=== PATIENT | female | born 1950 | race Caucasian/White ===

== ENCOUNTER 2017-12-29 02:36 | Observation (INO) | payer MEDICARE, OTHER ==
[2017-12-29] MEDS ORDERED: BABY ASPIRIN 81 MG CHEW ONE (03:17)
[2017-12-29] MEDS ORDERED: Sodium Chloride 0.9% 1000 ML 1,000 ML ONE (03:18)
[2017-12-29] MEDS ORDERED: MORPHINE SULFATE 4 MG INJ ONE (03:18)
[2017-12-29] MEDS ORDERED: NITRO-BID 2% UD PACKETS ONE (03:18)
[2017-12-29 03:39] LABS: BASOPHIL % 0.4 % (0.0-0.4); Basophil (Absolute #) 0.04 (0-0.4); Eosinophil % 2.8 % (0.00-5.0); Eosinophil (Absolute #) 0.27 (0-0.5); Granulocyte Absolute (ANC) 6.02 (1.4-6.9); Granulocytes % 63.5 % (36.0-66.0); Hematocrit 41.4 % (35-47); Hemoglobin 13.8 gm/dl (12.0-16.0); Lymphocytes % 26.3 % (24.0-44.0); Mean Corpuscular Hgb Concent. 33.3 g/dl (32-36); Mean Platelet Volume 11.6 fl (6-9.5); Monocyte (Absolute #) 0.66 (0.0-1.3); Platelet Count 264 K/mm3 (150-450); Red Blood Count 4.93 M/mm3 (4.1-5.4); Red Cell Distribution Width 14.5 % (11.5-14.0); White Blood Count 9.5 K/mm3 (4.0-10.5)
[2017-12-29 03:48] LABS: ALBUMIN 4.1 g/dL (3.5-5.0); ALKALINE PHOSPHATASE 166 U/L (38-126); ANION GAP 16.8 MEQ/L (5-15); BLOOD UREA NITROGEN 13 mg/dL (7-17); CHLORIDE 105 mmol/L (98-107); Calcium 9.7 mg/dL (8.4-10.2); Carbon Dioxide 25 mmol/L (22-30); Glucose 118 mg/dL (74-106); Potassium 3.9 mmol/L (3.5-5.1); SGOT/AST 20 U/L (14-36); SGPT/ALT 16 U/L (0-35); SODIUM 144 mmol/L (137-145); Total Protein 7.5 g/dL (6.3-8.2)
[2017-12-29 04:06] LABS: TROPONIN < 0.012 ng/mL (0.000-0.034)
[2017-12-29] MEDS ORDERED: TYLENOL 325 MG PO PRN ×2 (05:53→07:51)
[2017-12-29] MEDS ORDERED: MORPHINE SULFATE 2 MG INJ IV PRN (05:53)
[2017-12-29] MEDS ORDERED: MAALOX ES 30 ML UNIT DOSE PO PRN ×2 (05:53→08:02)
[2017-12-29] MEDS ORDERED: Senokot-S Tablet PO PRN ×2 (05:53→07:51)
[2017-12-29] MEDS ORDERED: MILK OF MAGNESIA 30 ML PO PRN ×2 (05:53→07:51)
[2017-12-29] MEDS ORDERED: Zofran 4 MG/2 ML VIAL IV PRN ×2 (05:53→07:51)
[2017-12-29] MEDS ORDERED: MORPHINE SULFATE 4 MG INJ IV PRN ×2 (07:51→08:15)
[2017-12-29] MEDS ORDERED: Ecotrin 325 MG PO SCH ×2 (10:00)
[2017-12-29] MEDS ORDERED: Lopressor 25MG Tab PO SCH ×2 (10:00)
--- NOTE | 2017-12-29 11:59 | ERPHSYRPT ---
- History of Present Illness Time Seen by Provider: 12/29/17 03:17 Historian: patient Exam Limitations: no limitations Patient Subjective Stated Complaint: CP starting around 0100 today. denies N/V but slight indigestion. pain in Left chest that goes into left back./ denies injury. denies SOB Triage Nursing Assessment: alert and oeriented and anxious. states CP starting at 0100 tonight. no SOB or diaphoresis. states pain radiated to left back. no N/V but sight indigestion. lungs clear + BS x 4 quads denies edema. denies cough/fever. Physician History: 67-year-old female without any significant past medical history except for hip replacement him to the emergency room with complaining of left-sided chest pain for last 2 hours duration. Patient denies any diaphoresis, nausea, vomiting, shortness of breath. Patient states that she has a white coat hypertension, so her blood pressure usually goes up when she visit to Dr. Patient denies any other symptoms. Timing/Duration: today Activities at Onset: none Quality: aching Location: other (left side chest) Chest Pain Radiation: no radiation Severity of Pain-Max: mild Severity of Pain-Current: mild Modifying Factors: Improves With: nothing Associated Symptoms: heartburn Prior Chest Pain/Cardiac Workup: no prior chest pain Aspirin Treatment Today: 81 mg x 1 Allergies/Adverse Reactions: warfarin sodium [From Coumadin] Allergy (Intermediate, Verified 12/29/17 02:55) n&v amoxicillin trihydrate [From Augmentin] Allergy (Verified 12/29/17 02:55) ciprofloxacin [From Cipro] Allergy (Verified 12/29/17 02:55) ciprofloxacin HCl [From Cipro] Allergy (Verified 12/29/17 02:55) codeine Allergy (Verified 12/29/17 02:55) hydrocodone Allergy (Verified 12/29/17 02:55) potassium clavulanate [From Augmentin] Allergy (Verified 12/29/17 02:55) Sulfa (Sulfonamide Antibiotics) Allergy (Verified 12/29/17 02:55) sulfamethoxazole [From Septra] Allergy (Verified 12/29/17 02:55) trimethoprim [From Septra] Allergy (Verified 12/29/17 02:55) Home Medications: Diphenhydramine HCl 25 mg [Benadryl 25 mg Capsule] 1 tab PO DAILY [History] Ibuprofen 200 mg [Motrin 200 mg] 200 mg PO UD PRN 11/25/15 [History] Hx Tetanus, Diphtheria Vaccination/Date Given: (unknown) Hx Influenza Vaccination/Date Given: No Hx Pneumococcal Vaccination/Date Given: No Immunizations Up to Date: Yes - Review of Systems Constitutional: No Fever, No Chills Eyes: No Symptoms Ears, Nose, & Throat: No Symptoms Respiratory: No Cough, No Dyspnea Cardiac: No Chest Pain, No Edema, No Syncope Abdominal/Gastrointestinal: No Abdominal Pain, No Nausea, No Vomiting, No Diarrhea Genitourinary Symptoms: No Dysuria Musculoskeletal: No Back Pain, No Neck Pain Skin: No Rash Neurological: No Dizziness, No Focal Weakness, No Sensory Changes Psychological: No Symptoms Endocrine: No Symptoms All Other Systems: Reviewed and Negative - Past Medical History Pertinent Past Medical History: Yes Neurological History: No Pertinent History ENT History: No Pertinent History Cardiac History: No Pertinent History Respiratory History: Bronchitis Endocrine Medical History: No Pertinent History Musculoskeletal History: Arthritis GI Medical History: Diverticulosis, Other History: No Pertinent History Psycho-Social History: No Pertinent History Female Reproductive Disorders: No Pertinent History - Past Surgical History Past Surgical History: Yes Neuro Surgical History: No Pertinent History Cardiac: No Pertinent History Respiratory: No Pertinent History Gastrointestinal: Colon Resection Genitourinary: No Pertinent History Musculoskeletal: Joint Replacement Female Surgical History: Hysterectomy Other Surgical History: bilateral hip replacement 2008, 2011 - Social History Smoking Status: Current every day smoker How long have you smoked: 45 Exposure to second hand smoke: Yes Drug Use: none Patient Lives Alone: No - Female History Hx Now: No - Nursing Vital Signs Nursing Vital Signs: Initial Vital Signs Temperature 98.7 F 12/29/17 02:45 Pulse Rate 97 H 12/29/17 02:45 Blood Pressure 223/106 12/29/17 02:45 O2 Sat by Pulse Oximetry 98 12/29/17 02:45 Pain Scale Pain Intensity 1 - Physical Exam General Appearance: no apparent distress, alert Eye Exam: PERRL/EOMI, eyes nml inspection Ears, Nose, Throat Exam: normal ENT inspection, moist mucous membranes Neck Exam: normal inspection, non-tender, supple, full range of motion Respiratory Exam: normal breath sounds, lungs clear, No respiratory distress Cardiovascular Exam: regular rate/rhythm, normal heart sounds Gastrointestinal/Abdomen Exam: soft, No tenderness, No mass Back Exam: normal inspection, No CVA tenderness, No vertebral tenderness Extremity Exam: normal inspection, normal range of motion Neurologic Exam: alert, oriented x 3, cooperative, normal mood/affect, sensation nml, No motor deficits Skin Exam: normal color, warm, dry SpO2: 98 Oxygen Delivery: Room Air - Course Nursing assessment & vital signs reviewed: Yes EKG Interpreted by Me: Sinus Rhythm, NORMAL ST-T - Radiology Exams Chest X-ray Interpretation: Reviewed by me, Negative Ordered Tests: Active Orders 24 hr Category Date Time Status EKG-ER Only STAT Care 12/29/17 03:05 Ordered Oxygen-ED Only NASAL CANNULA 2 lpm Care 12/29/17 03:03 Ordered CHEST 1 VIEW (PORTABLE) Stat Exams 12/29/17 03:04 Ordered CBC W DIFF Stat Lab 12/29/17 03:03 Ordered CBC W DIFF Stat Lab 12/29/17 03:35 Completed CMP Stat Lab 12/29/17 03:03 Ordered CMP Stat Lab 12/29/17 03:35 Completed TROPONIN Q3H Lab 12/29/17 03:15 Ordered TROPONIN Q3H Lab 12/29/17 06:15 Ordered TROPONIN Q3H Lab 12/29/17 09:15 Ordered TROPONIN Q3H Lab 12/29/17 12:15 Ordered TROPONIN Q3H Lab 12/29/17 15:15 Ordered TROPONIN Stat Lab 12/29/17 03:35 Completed Medication Summary Discontinued Medications Generic Name Dose Route Start Last Admin Trade Name Elieq PRN Reason Stop Dose Admin Aspirin Confirm 12/29/17 03:17 Baby Aspirin 81 Mg Chew Administered 12/29/17 03:18 Dose 81 mg .ROUTE .STK-MED ONE Sodium Chloride Confirm 12/29/17 03:18 Sodium Chloride 0.9% 1000 Ml Administered 12/29/17 03:19 Dose 1,000 mls @ ud .ROUTE .STK-MED ONE Morphine Sulfate Confirm 12/29/17 03:18 Morphine Sulfate 4 Mg Inj Administered 12/29/17 03:19 Dose 4 mg .ROUTE .STK-MED ONE Nitroglycerin Confirm 12/29/17 03:18 Nitro-Bid 2% Ud Packets Administered 12/29/17 03:19 Dose 1 gm .ROUTE .STK-MED ONE Lab/Rad Data: Laboratory Result Diagrams 12/29/17 03:35 12/29/17 03:35 Laboratory Results 12/29/17 12/29/17 Range/Units 03:35 03:35 WBC 9.5 (4.0-10.5) K/mm3 RBC 4.93 (4.1-5.4) M/mm3 Hgb 13.8 (12.0-16.0) gm/dl Hct 41.4 (35-47) % MCV 84.0 (78-100) fl MCH 28.0 (26-32) pg MCHC 33.3 (32-36) g/dl RDW 14.5 H (11.5-14.0) % Plt Count 264 (150-450) K/mm3 MPV 11.6 H (6-9.5) fl Gran % 63.5 (36.0-66.0) % Eos # (Auto) 0.27 (0-0.5) Absolute Lymphs (auto) 2.50 (1.0-4.6) Absolute Monos (auto) 0.66 (0.0-1.3) Lymphocytes % 26.3 (24.0-44.0) % Monocytes % 7.0 (0.0-12.0) % Eosinophils % 2.8 (0.00-5.0) % Basophils % 0.4 (0.0-0.4) % Absolute Granulocytes 6.02 (1.4-6.9) Basophils # 0.04 (0-0.4) Sodium 144 (137-145) mmol/L Potassium 3.9 (3.5-5.1) mmol/L Chloride 105 (98-107) mmol/L Carbon Dioxide 25 (22-30) mmol/L Anion Gap 16.8 H (5-15) MEQ/L BUN 13 (7-17) mg/dL Creatinine 0.80 (0.52-1.04) mg/dL Estimated GFR > 60.0 ML/MIN Glucose 118 H (74-106) mg/dL Calcium 9.7 (8.4-10.2) mg/dL Total Bilirubin 0.40 (0.2-1.3) mg/dL AST 20 (14-36) U/L ALT 16 (0-35) U/L Alkaline Phosphatase 166 H (38-126) U/L Troponin I < 0.012 (0.000-0.034) ng/mL Serum Total Protein 7.5 (6.3-8.2) g/dL Albumin 4.1 (3.5-5.0) g/dL - Progress Progress: improved Air Movement: good Blood Culture(s) Obtained: No Antibiotics given: No Discussed with : Genny Villalba Will see patient in: hospital (observation) Counseled pt/family regarding: lab results, diagnosis, need for follow-up, rad results - Departure Time of Disposition: 04:37 Departure Disposition: Observation Clinical Impression: Chest pain, rule out acute myocardial infarction, Elevated blood pressure reading Condition: Fair Critical Care Time: Yes Critical Care Time(excluding separately billable procedures): 30-74 minutes Referrals: MIGUELITO WOOD [ACTIVE STAFF] -
--- NOTE | 2017-12-29 19:15 | PCM.SSS ---
History of Present Illness - Chief Complaint Chief Complaint: chest pain R/O ND History of Present Illness: 67-year-old female without any significant past medical history except for hip replacement him to the emergency room with complaining of left-sided chest pain for last 2 hours duration. Patient denies any diaphoresis, nausea, vomiting, shortness of breath. Patient states that she has a white coat hypertension, so her blood pressure usually goes up when she visit to Dr. Patient denies any other symptoms. - Review of Systems Constitutional: No Fever, No Chills Eyes: No Symptoms Ears, Nose, & Throat: No Symptoms Respiratory: No Cough, No Short Of Breath Cardiac: No Chest Pain, No Edema, No Syncope Abdominal/Gastrointestinal: No Abdominal Pain, No Nausea, No Vomiting, No Diarrhea Genitourinary Symptoms: No Dysuria Musculoskeletal: No Back Pain, No Neck Pain Skin: No Rash Neurological: No Dizziness, No Focal Weakness, No Sensory Changes Psychological: No Symptoms Endocrine: No Symptoms Hematologic/Lymphatic: No Symptoms Immunological/Allergic: No Symptoms Medications & Allergies Home Medications: Home Medication List Diphenhydramine HCl 25 mg [Benadryl 25 mg Capsule] 1 tab PO BID 11/25/15 [ History Confirmed 12/29/17] Ibuprofen 200 mg [Motrin 200 mg] 200 mg PO BID 11/25/15 [History Confirmed 12/29/17] Aspirin EC 325 mg [Ecotrin 325 MG] 81 mg PO DAILY 30 Days tablet.ec 12/29 [Rx] Metoprolol Tartrate 25 mg [Lopressor 25MG Tab] 25 mg PO DAILY 30 Days #30 tab 12/29/17 [Rx] Allergies/Adverse Reactions: Allergies Allergy/AdvReac Type Severity Reaction Status Date / Time warfarin sodium Allergy Intermediate n&v Verified 12/29/17 02:55 [From Coumadin] amoxicillin trihydrate Allergy Verified 12/29/17 02:55 [From Augmentin] ciprofloxacin [From Cipro] Allergy Verified 12/29/17 02:55 ciprofloxacin HCl Allergy Verified 12/29/17 02:55 [From Cipro] codeine Allergy Verified 12/29/17 02:55 hydrocodone Allergy Verified 12/29/17 02:55 potassium clavulanate Allergy Verified 12/29/17 02:55 [From Augmentin] Sulfa (Sulfonamide Allergy Verified 12/29/17 02:55 Antibiotics) sulfamethoxazole Allergy Verified 12/29/17 02:55 [From Septra] trimethoprim [From Septra] Allergy Verified 12/29/17 02:55 - Past Medical History Past Medical History: Yes Neurological History: No Pertinent History ENT History: No Pertinent History Cardiac History: No Pertinent History Respiratory History: Bronchitis Endocrine Medical History: No Pertinent History Musculoskelatal History: Arthritis GI Medical History: Diverticulosis, Other History: No Pertinent History Pyscho-Social History: No Pertinent History Reproductive Disorders: No Pertinent History - Female History Are you now?: No (N) - Past Surgical History Past Surgical History: Yes Neuro Surgical History: No Pertinent History Cardiac History: No Pertinent History Respiratory Surgery: No Pertinent History GI Surgical History: Colon Resection Genitourinary Surgical Hx: No Pertinent History Musculskeletal Surgical Hx: Joint Replacement Female Surgical History: Hysterectomy Other Surgical History: bilateral hip replacement 2008, 2011 - Social History Smoking Status: Current every day smoker How long have you smoked: 45 Exposure to second hand smoke: Yes Alcohol: None Drug Use: none - Physical Exam Vital Signs: Vital Signs - 24 hr Temp Pulse Pulse Resp BP Pulse Ox 12/29/17 16:00 98.1 F 76 18 118/59 97 12/29/17 13:00 93 L 12/29/17 12:00 98.1 F 76 18 88/53 93 L 12/29/17 09:53 93 L 12/29/17 06:28 98.1 F 80 18 169/85 97 12/29/17 05:30 84 18 142/88 94 L 12/29/17 04:38 98 12/29/17 03:51 86 18 168/96 98 12/29/17 03:31 91 H 18 178/109 98 12/29/17 02:45 98.7 F 97 H 97 H 223/106 98 General Appearance: no apparent distress, alert Neurologic Exam: alert, oriented x 3, cooperative, normal mood/affect, nml cerebellar function, nml station & gait, sensation nml, No motor deficits Eye Exam: PERRL/EOMI, eyes nml inspection Ears, Nose, Throat Exam: normal ENT inspection, TMs normal, pharynx normal, moist mucous membranes Neck Exam: normal inspection, non-tender, supple, full range of motion Respiratory Exam: normal breath sounds, lungs clear, No respiratory distress Cardiovascular Exam: regular rate/rhythm, normal heart sounds, normal peripheral pulses Gastrointestinal/Abdomen Exam: soft, normal bowel sounds, No tenderness, No mass Back Exam: normal inspection, normal range of motion, No CVA tenderness, No vertebral tenderness Extremity Exam: normal inspection, normal range of motion, pelvis stable Skin Exam: normal color, warm, dry, No rash Lymphatic Exam: No adenopathy Results - Labs Lab/Micro Results: Lab Results-Last 24 Hours 12/29/17 12/29/17 12/29/17 Range/Units 06:30 09:30 12:30 Troponin I < 0.012 < 0.012 < 0.012 (0.000-0.034) ng/mL 12/29/17 Range/Units 15:35 Troponin I < 0.012 (0.000-0.034) ng/mL - Radiology Impressions Radiology Exams & Impressions: Radiology Procedures Category Date Time Status CHEST 1 VIEW (PORTABLE) Routine Exams 12/29/17 12:53 Taken - Other Procedures and Tests Respiratory Therapy 12/29/17 10:55 EKG ROUTINE Assessment/Plan (1) Chest pain, rule out acute myocardial infarction Current Visit: Yes Status: Acute Assessment & Plan: Troponins negative, ND ruled out. will discharge her home with outpatient cardiac work up Chief Complaint Diagnosis chest pain R/O ND Allergies Allergy/AdvReac Type Severity Reaction Status Date / Time warfarin sodium Allergy Intermediate n&v Verified 12/29/17 02:55 [From Coumadin] amoxicillin trihydrate Allergy Verified 12/29/17 02:55 [From Augmentin] ciprofloxacin [From Cipro] Allergy Verified 12/29/17 02:55 ciprofloxacin HCl Allergy Verified 12/29/17 02:55 [From Cipro] codeine Allergy Verified 12/29/17 02:55 hydrocodone Allergy Verified 12/29/17 02:55 potassium clavulanate Allergy Verified 12/29/17 02:55 [From Augmentin] Sulfa (Sulfonamide Allergy Verified 12/29/17 02:55 Antibiotics) sulfamethoxazole Allergy Verified 12/29/17 02:55 [From Septra] trimethoprim [From Septra] Allergy Verified 12/29/17 02:55 Vital Signs (Last 24 hours) Temp Pulse Pulse Resp BP Pulse Ox 12/29/17 16:00 98.1 F 76 18 118/59 97 12/29/17 13:00 93 L 12/29/17 12:00 98.1 F 76 18 88/53 93 L 12/29/17 09:53 93 L 12/29/17 06:28 98.1 F 80 18 169/85 97 12/29/17 05:30 84 18 142/88 94 L 12/29/17 04:38 98 12/29/17 03:51 86 18 168/96 98 12/29/17 03:31 91 H 18 178/109 98 12/29/17 02:45 98.7 F 97 H 97 H 223/106 98 Current Medications Generic Name Dose Route Start Last Admin Trade Name Freq PRN Reason Stop Dose Admin Acetaminophen 0 mg 12/29/17 07:51 Tylenol 325 Mg PO 01/28/18 07:50 Q4H/PRN PRN TEMP >101 OR MILD PAIN Al Hydrox/Mg Hydrox/Simethicone 30 ml 12/29/17 08:02 Maalox Es 30 Ml Unit Dose PO 01/28/18 08:01 PRN PRN INDIGESTION Aspirin 325 mg 12/29/17 10:00 12/29/17 09:40 Ecotrin 325 Mg PO 01/28/18 09:59 325 mg DAILY ALEXIA Administration Magnesium Hydroxide 0 ml 12/29/17 07:51 Milk Of Magnesia 30 Ml PO 01/28/18 07:50 PRN PRN CONSTIPATION Metoprolol Tartrate 25 mg 12/29/17 10:00 12/29/17 09:40 Lopressor 25mg Tab PO 01/28/18 09:59 25 mg BID ALEXIA Administration Morphine Sulfate 2 mg 12/29/17 08:15 Morphine Sulfate 4 Mg Inj IV 01/03/18 07:50 UD PRN PAIN Ondansetron HCl 4 mg 12/29/17 07:51 Zofran 4 Mg/2 Ml Vial IV 01/28/18 07:50 Q4H PRN PRN NAUSEA/VOMITING Senna/Docusate Sodium 2 udtab 12/29/17 07:51 Senokot-S Tablet PO 01/28/18 07:50 BID PRN PRN Discontinued Medications Generic Name Dose Route Start Last Admin Trade Name Freq PRN Reason Stop Dose Admin Acetaminophen 650 mg 12/29/17 05:53 Tylenol 325 Mg PO 01/28/18 05:52 Q4H PRN PRN PAIN AND/OR FEVER Al Hydrox/Mg Hydrox/Simethicone 30 ml 12/29/17 05:53 Maalox Es 30 Ml Unit Dose PO 01/28/18 05:52 Q4H PRN PRN INDIGESTION Aspirin Confirm 12/29/17 03:17 Baby Aspirin 81 Mg Chew Administered 12/29/17 03:18 Dose 81 mg .ROUTE .STK-MED ONE Aspirin 325 mg 12/29/17 10:00 12/29/17 12:41 Ecotrin 325 Mg PO 01/28/18 09:59 Not Given DAILY [facility] Sodium Chloride Confirm 12/29/17 03:18 Sodium Chloride 0.9% 1000 Ml Administered 12/29/17 03:19 Dose 1,000 mls @ ud .ROUTE .STK-MED ONE Magnesium Hydroxide 30 - 60 ml 12/29/17 05:53 Milk Of Magnesia 30 Ml PO 01/28/18 05:52 QDP PRN CONSTIPATION Metoprolol Tartrate 25 mg 12/29/17 10:00 12/29/17 12:41 Lopressor 25mg Tab PO 01/28/18 09:59 Not Given BID [facility] Morphine Sulfate Confirm 12/29/17 03:18 Morphine Sulfate 4 Mg Inj Administered 12/29/17 03:19 Dose 4 mg .ROUTE .STK-MED ONE Morphine Sulfate 0 mg 12/29/17 07:51 Morphine Sulfate 4 Mg Inj IV 01/03/18 07:50 UD PRN PAIN Morphine Sulfate 2 mg 12/29/17 05:53 Morphine Sulfate 2 Mg Inj IV 01/03/18 05:52 .Q15MIN PRN PRN CHEST PAIN Nitroglycerin Confirm 12/29/17 03:18 Nitro-Bid 2% Ud Packets Administered 12/29/17 03:19 Dose 1 gm .ROUTE .STK-MED ONE Ondansetron HCl 4 mg 12/29/17 05:53 Zofran 4 Mg/2 Ml Vial IV 01/28/18 05:52 Q4H PRN PRN NAUSEA/VOMITING Senna/Docusate Sodium 2 udtab 12/29/17 05:53 Senokot-S Tablet PO 01/28/18 05:52 BID PRN PRN CONSTIPATION Intake & Output (Last 24 hours) 12/27/17 12/28/17 12/29/17 12/30/17 11:59 11:59 11:59 11:59 Intake Total 480 820 Balance 480 820 Weight 85 kg Laboratory Results (Last 24 hours) 12/29/17 12/29/17 12/29/17 15:35 12:30 09:30 WBC RBC Hgb Hct MCV MCH MCHC RDW Plt Count MPV Gran % Eos # (Auto) Absolute Lymphs (auto) Absolute Monos (auto) Lymphocytes % Monocytes % Eosinophils % Basophils % Absolute Granulocytes Basophils # Sodium Potassium Chloride Carbon Dioxide Anion Gap BUN Creatinine Estimated GFR Glucose Calcium Total Bilirubin AST ALT Alkaline Phosphatase Troponin I < 0.012 < 0.012 < 0.012 Serum Total Protein Albumin 12/29/17 12/29/17 12/29/17 06:30 03:35 03:35 WBC 9.5 RBC 4.93 Hgb 13.8 Hct 41.4 MCV 84.0 MCH 28.0 MCHC 33.3 RDW 14.5 H Plt Count 264 MPV 11.6 H Gran % 63.5 Eos # (Auto) 0.27 Absolute Lymphs (auto) 2.50 Absolute Monos (auto) 0.66 Lymphocytes % 26.3 Monocytes % 7.0 Eosinophils % 2.8 Basophils % 0.4 Absolute Granulocytes 6.02 Basophils # 0.04 Sodium 144 Potassium 3.9 Chloride 105 Carbon Dioxide 25 Anion Gap 16.8 H BUN 13 Creatinine 0.80 Estimated GFR > 60.0 Glucose 118 H Calcium 9.7 Total Bilirubin 0.40 AST 20 ALT 16 Alkaline Phosphatase 166 H Troponin I < 0.012 < 0.012 Serum Total Protein 7.5 Albumin 4.1 Orders (Last 24 hours) Category Date Time Status Bedrest with BRP/BSC ROUTINE Activity 12/29/17 05:53 Active Code Status Order ROUTINE Care 12/29/17 05:53 Active IV Care Q6H Care 12/29/17 05:53 Active Implement Chest Pain Pathway ROUTINE Care 12/29/17 05:53 Active Moe Francois, Apply ROUTINE Care 12/29/17 05:53 Active Telemetry ROUTINE Care 12/29/17 05:53 Active Weight,Daily 0600 Care 12/29/17 05:53 Active Cardiac Diet Diet 12/29/17 Breakfast Active CHEST 1 VIEW (PORTABLE) Routine Exams 12/29/17 12:53 Taken CBC W DIFF Stat Lab 12/29/17 03:35 Completed CMP Stat Lab 12/29/17 03:35 Completed LIPID PROFILE AM.LAB Lab 12/30/17 04:00 Ordered TROPONIN Stat Lab 12/29/17 03:35 Completed TROPONIN Stat Lab 12/29/17 15:35 Completed TROPONIN Urgent Lab 12/29/17 06:30 Completed TROPONIN Urgent Lab 12/29/17 09:30 Completed TROPONIN Urgent Lab 12/29/17 12:30 Completed Acetaminophen 325 mg [Tylenol 325 mg] Med 12/29/17 07:51 Active 0 mg PO Q4H/PRN PRN Acetaminophen 325 mg [Tylenol 325 mg] Med 12/29/17 05:53 Discontinued 650 mg PO Q4H PRN PRN Aspirin 81 gm Chew [Baby Aspirin 81 mg Chew] Med 12/29/17 03:17 Discontinued 81 mg .ROUTE .STK-MED ONE Aspirin EC 325 mg [Ecotrin 325 MG] Med 12/29/17 10:00 Active 325 mg PO DAILY Aspirin EC 325 mg [Ecotrin 325 MG] Med 12/29/17 10:00 Discontinued 325 mg PO DAILY Mag Hydrox/Al Hydrox/Simeth [Maalox Es 30 ml Unit Med 12/29/17 08:02 Active Dose] 30 ml PO PRN PRN Mag Hydrox/Al Hydrox/Simeth [Maalox Es 30 ml Unit Med 12/29/17 05:53 Discontinued Dose] 30 ml PO Q4H PRN PRN Magnesium Hydroxide 30 ml [Milk of Magnesia 30 ml Med 12/29/17 07:51 Active ] 0 ml PO PRN PRN Magnesium Hydroxide 30 ml [Milk of Magnesia 30 ml Med 12/29/17 05:53 Discontinued ] 30 - 60 ml PO QDP PRN Metoprolol Tartrate 25 mg [Lopressor 25MG Tab] Med 12/29/17 10:00 Active 25 mg PO BID Metoprolol Tartrate 25 mg [Lopressor 25MG Tab] Med 12/29/17 10:00 Discontinued 25 mg PO BID Morphine Sulfate 2 mg Inj Med 12/29/17 05:53 Discontinued 2 mg IV .Q15MIN PRN PRN Morphine Sulfate 4 mg Inj Med 12/29/17 07:51 Discontinued 0 mg IV UD PRN Morphine Sulfate 4 mg Inj Med 12/29/17 08:15 Active 2 mg IV UD PRN Morphine Sulfate 4 mg Inj Med 12/29/17 03:18 Discontinued 4 mg .ROUTE .STK-MED ONE NaCl 0.9% 1000 ml [Sodium Chloride 0.9% 1000 ML] 1,000 Med 12/29/17 03:18 Discontinued ml .ROUTE UD Nitroglycerin 2 %Ointment [Nitro-Bid 2% Ud Packets Med 12/29/17 03:18 Discontinued *] 1 gm .ROUTE .STK-MED ONE Ondansetron HCl 4 mg/2 ml [Zofran 4 MG/2 ML VIAL] Med 12/29/17 05:53 Discontinued 4 mg IV Q4H PRN PRN Ondansetron HCl 4 mg/2 ml [Zofran 4 MG/2 ML VIAL] Med 12/29/17 07:51 Active 4 mg IV Q4H PRN PRN Senna/Docusate Sodium Tab [Senokot-S Tablet] Med 12/29/17 05:53 Discontinued 2 udtab PO BID PRN PRN Senna/Docusate Sodium Tab [Senokot-S Tablet] Med 12/29/17 07:51 Active 2 udtab PO BID PRN PRN EKG ONCE RT 12/29/17 10:47 Completed EKG Q8HX2,QAMX3,PRN RT 12/29/17 05:53 Active EKG ROUTINE RT 12/29/17 10:55 Active Smoking Cessation Education ONCE RT 12/29/17 06:42 Completed Transfer Order Routine Transfer 12/29/17 Completed Code(s): R07.9 - CHEST PAIN, UNSPECIFIED (2) Elevated blood pressure reading Current Visit: Yes Status: Resolved Code(s): R03.0 - ELEVATED BLOOD- PRESSURE READING, W/O DIAGNOSIS OF HTN Hospital Summary - Hospital Course Hospital Course: Last Vital Signs Temp 98.1 F 12/29/17 16:00 Pulse 76 12/29/17 16:00 Resp 18 12/29/17 16:00 BP 118/59 12/29/17 16:00 Pulse Ox 97 12/29/17 16:00 Allergies warfarin sodium [From Coumadin] Allergy (Intermediate, Verified 12/29/17 02:55) n&v amoxicillin trihydrate [From Augmentin] Allergy (Verified 12/29/17 02:55) ciprofloxacin [From Cipro] Allergy (Verified 12/29/17 02:55) ciprofloxacin HCl [From Cipro] Allergy (Verified 12/29/17 02:55) codeine Allergy (Verified 12/29/17 02:55) hydrocodone Allergy (Verified 12/29/17 02:55) potassium clavulanate [From Augmentin] Allergy (Verified 12/29/17 02:55) Sulfa (Sulfonamide Antibiotics) Allergy (Verified 12/29/17 02:55) sulfamethoxazole [From Septra] Allergy (Verified 12/29/17 02:55) trimethoprim [From Septra] Allergy (Verified 12/29/17 02:55) Active Medications Acetaminophen (Tylenol 325 Mg) 0 mg PO Q4H/PRN PRN PRN Reason: TEMP >101 OR MILD PAIN Stop: 01/28/18 07:50 Al Hydrox/Mg Hydrox/Simethicone (Maalox Es 30 Ml Unit Dose) 30 ml PO PRN PRN PRN Reason: INDIGESTION Stop: 01/28/18 08:01 Aspirin (Ecotrin 325 Mg) 325 mg PO DAILY ALEXIA Stop: 01/28/18 09:59 Last Admin: 12/29/17 09:40 Dose: 325 mg Magnesium Hydroxide (Milk Of Magnesia 30 Ml) 0 ml PO PRN PRN PRN Reason: CONSTIPATION Stop: 01/28/18 07:50 Metoprolol Tartrate (Lopressor 25mg Tab) 25 mg PO BID ALEXIA Stop: 01/28/18 09:59 Last Admin: 12/29/17 09:40 Dose: 25 mg Morphine Sulfate (Morphine Sulfate 4 Mg Inj) 2 mg IV UD PRN PRN Reason: PAIN Stop: 01/03/18 07:50 Ondansetron HCl (Zofran 4 Mg/2 Ml Vial) 4 mg IV Q4H PRN PRN PRN Reason: NAUSEA/VOMITING Stop: 01/28/18 07:50 Senna/Docusate Sodium (Senokot-S Tablet) 2 udtab PO BID PRN PRN Stop: 01/28/18 07:50 Intake & Output 12/29/17 12/30/17 11:59 11:59 Intake Total 480 820 Balance 480 820 Weight 85 kg Orders 12/29/17 05:53 Bedrest with BRP/BSC ROUTINE Code Status Order ROUTINE IV Care Q6H Implement Chest Pain Pathway ROUTINE Moe Francois, Apply ROUTINE Telemetry ROUTINE Weight,Daily 0600 EKG Q8HX2,QAMX3,PRN 12/29/17 07:51 Acetaminophen 325 mg [Tylenol 325 mg] 0 mg PO Q4H/PRN PRN Magnesium Hydroxide 30 ml [Milk of Magnesia 30 ml] 0 ml PO PRN PRN Ondansetron HCl 4 mg/2 ml [Zofran 4 MG/2 ML VIAL] 4 mg IV Q4H PRN PRN Senna/Docusate Sodium Tab [Senokot-S Tablet] 2 udtab PO BID PRN PRN 12/29/17 08:02 Mag Hydrox/Al Hydrox/Simeth [Maalox Es 30 ml Unit Dose] 30 ml PO PRN PRN 12/29/17 08:15 Morphine Sulfate 4 mg Inj 2 mg IV UD PRN 12/29/17 10:00 Aspirin EC 325 mg [Ecotrin 325 MG] 325 mg PO DAILY Metoprolol Tartrate 25 mg [Lopressor 25MG Tab] 25 mg PO BID 12/29/17 10:55 EKG ROUTINE 12/29/17 12:53 CHEST 1 VIEW (PORTABLE) Routine 12/29/17 Breakfast Cardiac Diet 12/30/17 04:00 LIPID PROFILE AM.LAB Lab Tests 12/29/17 12/29/17 12/29/17 03:35 03:35 06:30 WBC 9.5 RBC 4.93 Hgb 13.8 Hct 41.4 MCV 84.0 MCH 28.0 MCHC 33.3 RDW 14.5 H Plt Count 264 MPV 11.6 H Gran % 63.5 Eos # (Auto) 0.27 Absolute Lymphs (auto) 2.50 Absolute Monos (auto) 0.66 Lymphocytes % 26.3 Monocytes % 7.0 Eosinophils % 2.8 Basophils % 0.4 Absolute Granulocytes 6.02 Basophils # 0.04 Sodium 144 Potassium 3.9 Chloride 105 Carbon Dioxide 25 Anion Gap 16.8 H BUN 13 Creatinine 0.80 Estimated GFR > 60.0 Glucose 118 H Calcium 9.7 Total Bilirubin 0.40 AST 20 ALT 16 Alkaline Phosphatase 166 H Troponin I < 0.012 < 0.012 Serum Total Protein 7.5 Albumin 4.1 12/29/17 12/29/17 12/29/17 09:30 12:30 15:35 WBC RBC Hgb Hct MCV MCH MCHC RDW Plt Count MPV Gran % Eos # (Auto) Absolute Lymphs (auto) Absolute Monos (auto) Lymphocytes % Monocytes % Eosinophils % Basophils % Absolute Granulocytes Basophils # Sodium Potassium Chloride Carbon Dioxide Anion Gap BUN Creatinine Estimated GFR Glucose Calcium Total Bilirubin AST ALT Alkaline Phosphatase Troponin I < 0.012 < 0.012 < 0.012 Serum Total Protein Albumin - Vitals & Intake/Output Vital Signs: Vital Signs Temperature 98.1 F 12/29/17 16:00 Pulse Rate 76 12/29/17 16:00 Respiratory Rate 18 12/29/17 16:00 Blood Pressure 118/59 12/29/17 16:00 O2 Sat by Pulse Oximetry 97 12/29/17 16:00 Intake & Output: Intake & Output 12/27/17 12/28/17 12/29/17 12/30/17 11:59 11:59 11:59 11:59 Intake Total 480 820 Balance 480 820 Weight 85 kg - Lab Result Diagrams: 12/29/17 03:35 12/29/17 03:35 Lab Results-Last 24 Hrs: Lab Results-Last 24 Hours 12/29/17 12/29/17 12/29/17 Range/Units 06:30 09:30 12:30 Troponin I < 0.012 < 0.012 < 0.012 (0.000-0.034) ng/mL 12/29/17 Range/Units 15:35 Troponin I < 0.012 (0.000-0.034) ng/mL - Radiology Exams Ordered Rad Exams-Entire Visit: Radiology Procedures Category Date Time Status CHEST 1 VIEW (PORTABLE) Routine Exams 12/29/17 12:53 Taken - Procedures and Test Procedures and Tests throughout Hospitalization: Therapy Orders & Screens 12/29/17 06:42 Smoking Cessation Education ONCE Comment: Diagnosis: chest pain R/O ND Smoking Status: Current every day smoker How long have you smoked: 45 Have you smoked in the past 12 months: Yes Approximately how many cigarettes per day: 20 Do you dip or chew tobacco: No 12/29/17 10:47 EKG ONCE Comment: Diagnosis: chest pain R/O ND 12/29/17 10:55 EKG ROUTINE Comment: Diagnosis: chest pain R/O ND - Discharge Discharge Date: 12/29/17 Disposition: Home, Self-Care Condition: Stable Prescriptions: New Aspirin EC 325 mg [Ecotrin 325 MG] 81 mg PO DAILY 30 Days tablet.ec Metoprolol Tartrate 25 mg [Lopressor 25MG Tab] 25 mg PO DAILY 30 Days # 30 tab Continue Diphenhydramine HCl 25 mg [Benadryl 25 mg Capsule] 1 tab PO BID Ibuprofen 200 mg [Motrin 200 mg] 200 mg PO BID Follow up with: MIGUELITO WOOD [Primary Care Provider] - 5 Days
[2017-12-29 20:12] VITALS: BP 127/61; PULSE 79; O2SAT 96
--- NOTE | 2017-12-29 21:24 | XRAY ---
Indication: Chest pain. Comparison: None Portable chest demonstrates mild bibasilar infiltrate versus atelectasis. Remaining heart and lungs unremarkable. Bony thorax intact with mild osteopenia and degenerative changes. Comment: Preliminary interpretation was made by [facility]. No critical discrepancy.
== END 2017-12-29 20:10 | disposition home or self-care (01) ==
LOC: ED 02:36 → MED SURG 05:48
PROVIDERS: ADMIT General Practice; ATTEND General Practice
DX: R03.0 Elevated blood-pressure reading, without diagnosis of hypertension (principal)
CPT/HCPCS: 36415; 71045; 80053; 84484; 85025; 93005; 93268; 96365; 99284; 99285; J2270; A9270-GY; G0378

== ENCOUNTER 2018-02-02 13:25 | Emergency (ER) | payer MEDICARE, OTHER ==
[2018-02-02] MEDS ORDERED: solu-MEDROL 125 MG IV ONE (14:01)
[2018-02-02] MEDS ORDERED: solu-MEDROL 125 MG ONE (14:05)
--- NOTE | 2018-02-02 14:08 | ERPHSYRPT ---
- History of Present Illness Time Seen by Provider: 02/02/18 13:54 Source: patient Exam Limitations: no limitations Patient Subjective Stated Complaint: pt reports she has a history of allergic reactions-woke up with hives this morning-injection of benadryl-went home and took tessalon pearls-broke out in hives worse than the first time-reports feeling of sob isamar 30 min after breaking out in hives the second time Triage Nursing Assessment: pt pink warm and dry-increased work of breathing noted with no retractions noted-pt able to speak in complete sentences-hives noted to upper trunk-wheezes noted to left lung Physician History: 67-year-old white female arrives with complaint of hives, wheezing symptoms since around 10:00. According to patient she had had the hives and wheezing since last . She was seen in this morning at the outpatient clinic given the injection of Benadryl. She states she improved. She states that at 10:00 morning she took Tessalon Perles and had recurrence of her symptoms. She states she is on Biaxin, prednisone, Tessalon Perles Past medical history includes bronchitis, diverticulosis, arthritis Past surgical history includes hysterectomy, joint replacement, bilateral hip replacement Timing/Duration: other (hives and occasional wheezing since 2 days ago. Seen by outpatient clinic this am given Benadryl took Tessalon Perles at 10 :00 and rash recurred.) Associated Symptoms: cough, rash, other (wheezing), No nausea, No vomiting, No abdominal pain, No shortness of breath, No heartburn, No diaphoresis, No chest pain, No fever, No headaches, No loss of appetite, No malaise, No syncope, No seizure, No weakness Allergies/Adverse Reactions: warfarin sodium [From Coumadin] Allergy (Intermediate, Verified 02/02/18 13:37) n&v amoxicillin trihydrate [From Augmentin] Allergy (Verified 02/02/18 13:37) ciprofloxacin [From Cipro] Allergy (Verified 02/02/18 13:37) ciprofloxacin HCl [From Cipro] Allergy (Verified 02/02/18 13:37) codeine Allergy (Verified 02/02/18 13:37) hydrocodone Allergy (Verified 02/02/18 13:37) potassium clavulanate [From Augmentin] Allergy (Verified 02/02/18 13:37) Sulfa (Sulfonamide Antibiotics) Allergy (Verified 02/02/18 13:37) sulfamethoxazole [From Septra] Allergy (Verified 02/02/18 13:37) trimethoprim [From Septra] Allergy (Verified 02/02/18 13:37) Home Medications: Diphenhydramine HCl 25 mg [Benadryl 25 mg Capsule] 1 tab PO BID 11/25/15 [ History] Ibuprofen 200 mg [Motrin 200 mg] 200 mg PO BID 11/25/15 [History] Benzonatate [Tessalon Perle] 100 mg PO UD 02/02/18 [History] Clarithromycin 500 mg PO UD 02/02/18 [History] Prednisone 10 mg [Deltasone 10 mg] 10 mg PO UD 02/02/18 [History] Hx Tetanus, Diphtheria Vaccination/Date Given: Yes (2016) Hx Influenza Vaccination/Date Given: No Hx Pneumococcal Vaccination/Date Given: No Immunizations Up to Date: Yes - Review of Systems Constitutional: No Fever, No Chills Eyes: No Symptoms Ears, Nose, & Throat: No Symptoms Respiratory: Cough, Wheezing Cardiac: No Chest Pain, No Edema, No Syncope Abdominal/Gastrointestinal: No Abdominal Pain, No Nausea, No Vomiting, No Diarrhea Genitourinary Symptoms: No Dysuria Musculoskeletal: No Back Pain, No Neck Pain Skin: Rash Neurological: No Dizziness, No Focal Weakness, No Sensory Changes Psychological: No Symptoms Endocrine: No Symptoms All Other Systems: Reviewed and Negative - Past Medical History Pertinent Past Medical History: Yes Neurological History: No Pertinent History ENT History: No Pertinent History Cardiac History: No Pertinent History Respiratory History: Bronchitis Endocrine Medical History: No Pertinent History Musculoskeletal History: Arthritis GI Medical History: Diverticulosis, Other History: No Pertinent History Psycho-Social History: No Pertinent History Female Reproductive Disorders: No Pertinent History - Past Surgical History Past Surgical History: Yes Neuro Surgical History: No Pertinent History Cardiac: No Pertinent History Respiratory: No Pertinent History Gastrointestinal: Colon Resection Genitourinary: No Pertinent History Musculoskeletal: Joint Replacement Female Surgical History: Hysterectomy Other Surgical History: bilateral hip replacement 2008, 2011 - Social History Smoking Status: Current every day smoker How long have you smoked: yrs Exposure to second hand smoke: Yes Drug Use: none Patient Lives Alone: No - Female History Hx Now: No - Nursing Vital Signs Nursing Vital Signs: Initial Vital Signs Temperature 98.2 F 02/02/18 13:30 Pulse Rate 87 02/02/18 13:30 Respiratory Rate 18 02/02/18 13:30 Blood Pressure 116/73 02/02/18 13:30 O2 Sat by Pulse Oximetry 96 02/02/18 13:30 Pain Scale Pain Intensity 0 - Physical Exam General Appearance: mild distress Eye Exam: PERRL/EOMI, eyes nml inspection Ears, Nose, Throat Exam: normal ENT inspection, TMs normal, pharynx normal, moist mucous membranes Neck Exam: normal inspection, non-tender, supple, full range of motion Respiratory Exam: lungs clear, wheezing (occasional scattered wheeze), No respiratory distress Cardiovascular Exam: regular rate/rhythm, normal heart sounds, normal peripheral pulses Gastrointestinal/Abdomen Exam: soft, normal bowel sounds, No tenderness, No mass Back Exam: normal inspection, normal range of motion, No CVA tenderness, No vertebral tenderness Extremity Exam: normal inspection, normal range of motion, pelvis stable Neurologic Exam: alert, oriented x 3, cooperative, clinical trainer II-XII nml as tested, normal mood/affect, nml cerebellar function, nml station & gait, sensation nml, No motor deficits Skin Exam: other (Sparse urticarial rash) SpO2 Interpretation: normal (96%) SpO2: 96 Oxygen Delivery: Room Air - Course Nursing assessment & vital signs reviewed: Yes EKG Interpreted by Me: RATE (68 bpm), Sinus Rhythm, NORMAL AXIS, Other (EKG: Sinus rhythm, large amount of artifact, 68 beats per minute, no acute ST or T wave changes, normal axis) - Radiology Exams Chest X-ray Interpretation: Reviewed by me (no acute disease process) Ordered Tests: Active Orders 24 hr Category Date Time Status EKG-ER Only STAT Care 02/02/18 14:01 Active IV Insertion STAT Care 02/02/18 14:01 Active CHEST 1 VIEW (PORTABLE) Stat Exams 02/02/18 14:32 Taken Medication Summary Discontinued Medications Generic Name Dose Route Start Last Admin Trade Name Freq PRN Reason Stop Dose Admin Albuterol/Ipratropium 3 ml 02/02/18 14:31 02/02/18 15:22 Duoneb 0.5-3 Mg/3 Ml Neb IH 02/02/18 14:32 Not Given STAT ONE Albuterol/Ipratropium Confirm 02/02/18 15:14 Duoneb 0.5-3 Mg/3 Ml Neb Administered 02/02/18 15:15 Dose 3 ml IH .STK-MED ONE Methylprednisolone Sodium Succinate 125 mg 02/02/18 14:01 02/02/18 14:18 Solu-Medrol 125 Mg IV 02/02/18 14:02 125 mg STAT ONE Administration Methylprednisolone Sodium Succinate Confirm 02/02/18 14:05 Solu-Medrol 125 Mg Administered 02/02/18 14:06 Dose 125 mg .ROUTE .STK-MED ONE - Progress Progress: improved Progress Note: 02/02/18 15:27 67-year-old white female arrives with complaint of hives wheezing after taking Tessalon Perles this morning. Patient had apparently developed a rash after Tessalon Perles albuterol Biaxin and prednisone 2 days ago. She was seen in the clinic today was given Benadryl injection. Patient states she got better. Then, when she got home she took a Tessalon Perles and she began to have hives again stated that she was wheezing. Patient states she took 2 Benadryl tablets at around 1:00. She was also given Solu-Medrol 125 mg IM here in the emergency room. She is feeling better. I had ordered a DuoNeb treatment for the patient however she states that she possibly had an allergy to the albuterol. On recheck she is clear on her lungs Will hold albuterol she appears to be improving after both her Benadryl and her injection of Solu-Medrol. If continued to improve Will plan to discharge patient have her continue her prednisone. She is to continue Benadryl 50 mg orally every 6 hours. She is to discontinue Tessalon Perles hold Biaxin until she discusses this with her family doctor.. Patient states that she apparently had chest pain in the past which she had a normal workup here in the emergency room however she was supposed to see a organ teacher so epinephrine at this time was not given patient is improving anyway. - Departure Time of Disposition: 15:56 Departure Disposition: Home Clinical Impression: Allergic reaction caused by a drug Qualifiers: Encounter type: initial encounter Qualified Code(s): T78.40XA - Allergy, unspecified, initial encounter Condition: Fair Critical Care Time: No Referrals: JERAMIE GRECO [Primary Care Provider] - Additional Instructions: Return home. Do not take anymore Tessalon Perles. Prednisone taper as prescribed by your family doctor. Benadryl 50 mg orally every 6 hours as needed. Plenty of fluids. Follow-up with your family doctor. Return for acute distress or for severe symptoms. Contact your family doctor before taking any Biaxin.
[2018-02-02] MEDS ORDERED: DUONEB 0.5-3 MG/3 ml Neb IH ONE ×2 (14:31→15:14)
[2018-02-02 16:09] VITALS: BP 142/73; PULSE 65; O2SAT 95
--- NOTE | 2018-02-02 21:03 | XRAY ---
Indication: Cough. Comparison: December 29, 2017. Portable chest demonstrates new right mid lung linear opacity, possible subsegmental atelectasis. Infiltrate not completely excluded in the right clinical setting. Remaining heart and lungs unremarkable.
== END 2018-02-02 16:08 | disposition home or self-care (01) ==
LOC: ED 13:25
DX: L50.9 Urticaria, unspecified (principal); R06.2 Wheezing; T48.3X5A Adverse effect of antitussives, initial encounter; Z79.899 Other long term (current) drug therapy
CPT/HCPCS: 36000; 71045; 93005; 96374; 99284; J2930; A9270-GY

== ENCOUNTER 2018-02-08 11:53 | Emergency (ER) | payer MEDICARE, OTHER ==
[2018-02-08 12:26] LABS: Hematocrit 38.6 % (35-47); Hemoglobin 12.9 gm/dl (12.0-16.0); Mean Cell Volume 84.8 fl (78-100); Mean Corpuscular Hemoglobin 28.4 pg (26-32); Mean Corpuscular Hgb Concent. 33.4 g/dl (32-36); Platelet Count 246 K/mm3 (150-450); Red Blood Count 4.55 M/mm3 (4.1-5.4)
--- NOTE | 2018-02-08 12:30 | ERPHSYRPT ---
- History of Present Illness Time Seen by Provider: 02/08/18 12:08 Source: patient Exam Limitations: no limitations Patient Subjective Stated Complaint: pt reports she has had productive cough and bronchitis that is being treated-states she continues to cough-began having left sided chest pain-denies diaphorisis-denies n/v/d Triage Nursing Assessment: pt pale warm and dry-anxious with labored breathing but able to talk in complete sentences with no increased work of breathing- slight wheezes noted throughout-right radial pulse regualr and strong Physician History: This is a 67-year-old white female with history of bronchitis, but diverticulosis, arthritis, Patient arrives with a complaint of a cough which has been going on for over a week she had initially been seen by her family doctor had been given an albuterol treatment placed on prednisone and Biaxin and Tussionex. Patient apparently didn't apparently then developed a rash. Which resolved after taking Benadryl several days ago. After this she had taken Tussionex again and developed a rash again. And presented to the emergency room on February 02, 2018. Patient was given Solu-Medrol IV she had already taken Benadryl an hour or 2 prior to arrival patient improved patient was discharged., And she states she followed up with his her family doctor who increased her prednisone dose. Patient states she believes that she cannot take albuterol she feels like this was part of her rash. She is here now complaining of a continued cough and she states that she has pain in her left anterior chest with coughing. She had been told in the past not to take Tussionex. Because of rash which had developed. Patient states she contacted her family doctor and he recommended that she present to the emergency room for further evaluation, Past medical history includes bronchitis, diverticulosis, arthritis Past surgical history includes joint replacement, hysterectomy, bilateral hip replacement Timing/Duration: week(s) (symptoms for approximately one week) Severity: moderate Modifying Factors: Improves With: other (Pain left anterior chest with coughing) Associated Symptoms: cough, chest pain (Pain left anterior chest with coughing) , No nausea, No vomiting, No abdominal pain, No shortness of breath, No heartburn, No diaphoresis, No chills, No fever, No headaches, No loss of appetite, No rash, No syncope, No seizure, No weakness Allergies/Adverse Reactions: albuterol Allergy (Intermediate, Verified 02/08/18 12:05) Hives warfarin sodium [From Coumadin] Allergy (Intermediate, Verified 02/02/18 13:37) n&v amoxicillin trihydrate [From Augmentin] Allergy (Verified 02/02/18 13:37) ciprofloxacin [From Cipro] Allergy (Verified 02/02/18 13:37) ciprofloxacin HCl [From Cipro] Allergy (Verified 02/02/18 13:37) codeine Allergy (Verified 02/02/18 13:37) hydrocodone Allergy (Verified 02/02/18 13:37) potassium clavulanate [From Augmentin] Allergy (Verified 02/02/18 13:37) Sulfa (Sulfonamide Antibiotics) Allergy (Verified 02/02/18 13:37) sulfamethoxazole [From Septra] Allergy (Verified 02/02/18 13:37) trimethoprim [From Septra] Allergy (Verified 02/02/18 13:37) Home Medications: Diphenhydramine HCl 25 mg [Benadryl 25 mg Capsule] 1 tab PO BID 11/25/15 [ History] Ibuprofen 200 mg [Motrin 200 mg] 200 mg PO BID 11/25/15 [History] Clarithromycin 500 mg PO UD 02/02/18 [History] Prednisone 10 mg [Deltasone 10 mg] 20 mg PO UD 02/02/18 [History] Hx Tetanus, Diphtheria Vaccination/Date Given: Yes (2016) Hx Influenza Vaccination/Date Given: No Hx Pneumococcal Vaccination/Date Given: No Immunizations Up to Date: Yes - Review of Systems Constitutional: No Fever, No Chills Eyes: No Symptoms Ears, Nose, & Throat: No Symptoms Respiratory: Cough, No Cyanosis, No Dyspnea, No Dyspnea on Exertion ([place]), No Stridor, No Wheezing Cardiac: Chest Pain (pain left anterior chest with coughing) Abdominal/Gastrointestinal: No Abdominal Pain, No Nausea, No Vomiting, No Diarrhea Genitourinary Symptoms: No Dysuria Musculoskeletal: No Back Pain, No Neck Pain Skin: No Rash Neurological: No Dizziness, No Focal Weakness, No Sensory Changes Psychological: No Symptoms Endocrine: No Symptoms All Other Systems: Reviewed and Negative - Past Medical History Pertinent Past Medical History: Yes Neurological History: No Pertinent History ENT History: No Pertinent History Cardiac History: No Pertinent History Respiratory History: Bronchitis Endocrine Medical History: No Pertinent History Musculoskeletal History: Arthritis GI Medical History: Diverticulosis, Other History: No Pertinent History Psycho-Social History: No Pertinent History Female Reproductive Disorders: No Pertinent History - Past Surgical History Past Surgical History: Yes Neuro Surgical History: No Pertinent History Cardiac: No Pertinent History Respiratory: No Pertinent History Gastrointestinal: Colon Resection Genitourinary: No Pertinent History Musculoskeletal: Joint Replacement Female Surgical History: Hysterectomy Other Surgical History: bilateral hip replacement 2008, 2011 - Social History Smoking Status: Current every day smoker How long have you smoked: yrs Exposure to second hand smoke: Yes Drug Use: none Patient Lives Alone: No - Female History Hx Now: No - Nursing Vital Signs Nursing Vital Signs: Initial Vital Signs Temperature 97.8 F 02/08/18 11:55 Pulse Rate 80 02/08/18 11:55 Respiratory Rate 20 02/08/18 11:55 Blood Pressure 174/89 02/08/18 11:55 O2 Sat by Pulse Oximetry 98 02/08/18 11:55 Pain Scale Pain Intensity 0 - Physical Exam General Appearance: other (well-developed well-nourished white female frequent cough, increases when I enter the room tearful) Eye Exam: PERRL/EOMI, eyes nml inspection Ears, Nose, Throat Exam: normal ENT inspection, TMs normal, pharynx normal, moist mucous membranes Neck Exam: normal inspection, non-tender, supple, full range of motion Respiratory Exam: normal breath sounds, lungs clear, other (pain in left anterior chest with deep breathing), No respiratory distress Cardiovascular Exam: regular rate/rhythm, normal heart sounds, normal peripheral pulses Gastrointestinal/Abdomen Exam: soft, normal bowel sounds, No tenderness, No mass Back Exam: normal inspection, normal range of motion, No CVA tenderness, No vertebral tenderness Extremity Exam: normal inspection, normal range of motion, pelvis stable Neurologic Exam: alert, oriented x 3, cooperative, conflict resolution professional II-XII nml as tested, normal mood/affect, nml cerebellar function, nml station & gait, sensation nml, No motor deficits Skin Exam: normal color, warm, dry, No rash Lymphatic Exam: adenopathy SpO2 Interpretation: normal (98%) SpO2: 98 Oxygen Delivery: Room Air - Course Nursing assessment & vital signs reviewed: Yes EKG Interpreted by Me: RATE (78 bpm), Sinus Rhythm, NORMAL AXIS, Other (EKG: Sinus rhythm, 70 bpm, normal axis, no acute ST or T wave changes noted) - Radiology Exams Chest X-ray Interpretation: Discussed w/ radiologist (chest x-ray: Portable chest demonstrates clearing of previous right mid lung opacity. Remaining lungs clear heart is not enlarged for AP portable technique. No new/acute findings) - CT Exams Chest CT Interpretation: Discussed w/radiologist (CT chest with contrast: 1. Negative pulmonary embolus. 2. Minimal patchy airspacee disease in both lungs, 3. Mild pulmonary emphysema and scattered subsegmental atelectasis/scarring. 3. Incidental small hiatal hernia and fatty liver) Ordered Tests: Active Orders 24 hr Category Date Time Status Nuclear Weapons Mechanical Specialist STAT Care 02/08/18 12:18 Active EKG-ER Only STAT Care 02/08/18 12:18 Active IV Insertion STAT Care 02/08/18 12:18 Active CHEST 1 VIEW (PORTABLE) Stat Exams 02/08/18 12:18 Completed CHEST WITH CONTRAST [CT] Stat Exams 02/08/18 13:08 Completed CBC W DIFF Stat Lab 02/08/18 12:00 Completed CMP Stat Lab 02/08/18 12:00 Completed D-DIMER QUANTITATION Stat Lab 02/08/18 12:00 Completed Manual Differential NC Stat Lab 02/08/18 12:00 Completed TROPONIN Q3H Lab 02/08/18 12:00 Completed TROPONIN Q3H Lab 02/08/18 15:30 Ordered TROPONIN Q3H Lab 02/08/18 18:30 Ordered TROPONIN Q3H Lab 02/08/18 21:30 Ordered TROPONIN Q3H Lab 02/09/18 00:30 Ordered Medication Summary Discontinued Medications Generic Name Dose Route Start Last Admin Trade Name Freq PRN Reason Stop Dose Admin Diphenhydramine HCl 25 mg 02/08/18 14:58 Benadryl 50 Mg/Ml IV 02/08/18 14:59 STAT ONE Methylprednisolone Sodium Succinate 125 mg 02/08/18 14:58 Solu-Medrol 125 Mg IV 02/08/18 14:59 STAT ONE Potassium Bicarbonate 50 meq 02/08/18 12:57 02/08/18 13:15 K-Lyte 25 Meq PO 02/08/18 12:58 50 meq STAT ONE Administration Potassium Bicarbonate Confirm 02/08/18 13:11 K-Lyte 25 Meq Administered 02/08/18 13:12 Dose 50 meq .ROUTE .STK-MED ONE Lab/Rad Data: Laboratory Result Diagrams 02/08/18 12:00 02/08/18 12:00 Laboratory Results 02/08/18 02/08/18 02/08/18 Range/Units 12:00 12:00 12:00 WBC (4.0-10.5) K/mm3 RBC (4.1-5.4) M/mm3 Hgb (12.0-16.0) gm/dl Hct (35-47) % MCV (78-100) fl MCH (26-32) pg MCHC (32-36) g/dl RDW (11.5-14.0) % Plt Count (150-450) K/mm3 MPV (6-9.5) fl Absolute Granulocytes (1.4-6.9) Segmented Neutrophils (36.0-66.0) % Band Neutrophils (0.0-2.0) % Lymphocytes (Manual) (24-44) % Monocytes (Manual) (0.0-12.0) % Platelet Estimate (NORMAL) RBC Morphology D-Dimer 898 H* (215-500) ng/mL Sodium 145 (137-145) mmol/L Potassium 3.0 L (3.5-5.1) mmol/L Chloride 105 (98-107) mmol/L Carbon Dioxide 27 (22-30) mmol/L Anion Gap 15.1 H (5-15) MEQ/L BUN 19 H (7-17) mg/dL Creatinine 0.96 (0.52-1.04) mg/dL Estimated GFR > 60.0 ML/MIN Glucose 120 H (74-106) mg/dL Calcium 9.0 (8.4-10.2) mg/dL Total Bilirubin 0.30 (0.2-1.3) mg/dL AST 17 (14-36) U/L ALT 26 (0-35) U/L Alkaline Phosphatase 125 (38-126) U/L Troponin I < 0.012 (0.000-0.034) ng/mL Serum Total Protein 6.8 (6.3-8.2) g/dL Albumin 3.9 (3.5-5.0) g/dL 02/08/18 Range/Units 12:00 WBC 16.0 H (4.0-10.5) K/mm3 RBC 4.55 (4.1-5.4) M/mm3 Hgb 12.9 (12.0-16.0) gm/dl Hct 38.6 (35-47) % MCV 84.8 (78-100) fl MCH 28.4 (26-32) pg MCHC 33.4 (32-36) g/dl RDW 15.0 H (11.5-14.0) % Plt Count 246 (150-450) K/mm3 MPV 12.0 H (6-9.5) fl Absolute Granulocytes 10.25 H (1.4-6.9) Segmented Neutrophils 63 (36.0-66.0) % Band Neutrophils 1 (0.0-2.0) % Lymphocytes (Manual) 33 (24-44) % Monocytes (Manual) 3 (0.0-12.0) % Platelet Estimate NORMAL (NORMAL) RBC Morphology NORMAL D-Dimer (215-500) ng/mL Sodium (137-145) mmol/L Potassium (3.5-5.1) mmol/L Chloride (98-107) mmol/L Carbon Dioxide (22-30) mmol/L Anion Gap (5-15) MEQ/L BUN (7-17) mg/dL Creatinine (0.52-1.04) mg/dL Estimated GFR ML/MIN Glucose (74-106) mg/dL Calcium (8.4-10.2) mg/dL Total Bilirubin (0.2-1.3) mg/dL AST (14-36) U/L ALT (0-35) U/L Alkaline Phosphatase (38-126) U/L Troponin I (0.000-0.034) ng/mL Serum Total Protein (6.3-8.2) g/dL Albumin (3.5-5.0) g/dL - Progress Progress: improved Progress Note: 02/08/18 14:48 67-year-old white female who has been seen here previously secondary to cough she apparently had a cough for about a week ago she was seen by Dr. Henry given an albuterol treatment given steroids placed on Biaxin and Tessalon pearls. Patient had developed hives and a rash after the albuterol and a Tessalon Perle she states apparently took Benadryl the rash cleared, then she took Tessalon pearls the rash reappeared patient had a cough and shortness of breath she presented to the ER after taking Benadryl was given Solu-Medrol and was better this occurred approximately 5 days ago . The patient was subsequently seen by her family doctor who increased her prednisone and told her to continue Benadryl. Patient arrives today stating she is having continuing pain in the left anterior chest with coughing and continued cough she appears to be somewhat anxious on arrival. Patient with a normal EKG chest x-ray was normal. CT was obtained secondary to d-dimer being elevated this was remarkable for negative pulmonary embolism, minimal patchy airspace disease in both upper lobes , mild pulmonary emphysema and scattered subsegmental atelectasis/scarring, and incidental small hiatal hernia and fatty liver. It is noted that the patient's coughing with increased when I walked into the room and she would be quite relaxed when I was out of the room I did not see acute distress. Patient's vitals were stable troponin was normal white count was slightly elevated however the patient had been on prednisone. Patient's vitals are stable. I've discussed the patient's case with Dr. Henry the patient's family physician. He states the patient tends to be quite anxious and she has had a long standing recurrent problem such as what is going on now. Patient is already on Biaxin. He has just increased her prednisone. He has asked that I go ahead and give her Benadryl 25 mg IV, Solu-Medrol 125 mg IV. And plan to discharge the patient and have her continue Benadryl 25-50 mg orally every 6 hours,. Continue prednisone as prescribed by Dr. Henry. And have patient finish her Biaxin. Patient did have some minimal patchy airspace disease in both upper lobes. However patient has been on Biaxin and it is felt that these will not resolve immediately, Patient is also noted to be smoking and apparently will not quit she will be advised to stop smoking again. Patient appears to be stable at this time. - Departure Time of Disposition: 14:53 Departure Disposition: Home Clinical Impression: Bronchospasm, Non-cardiac chest pain COPD (chronic obstructive pulmonary disease) Qualifiers: COPD type: unspecified COPD Qualified Code(s): J44.9 - Chronic obstructive pulmonary disease, unspecified Condition: Fair Critical Care Time: No Referrals: JERAMIE HENRY [Primary Care Provider] - Instructions: Chronic Obstructive Pulmonary Disease Additional Instructions: Return home. Prednisone as prescribed by Dr. Henry. Benadryl 25-50 mg orally every 6 hours. Plenty of fluids. Finish Biaxin as prescribed by Dr. Henry. Follow-up with Dr. Henry. Return for acute distress or for severe symptoms. stop smoking
--- NOTE | 2018-02-08 12:40 | XRAY ---
Indication: Left chest pain. Short of breath and cough. Comparison: February 02, 2018. Portable chest demonstrates clearing of the previous right midlung opacity. Remaining lungs clear. Heart is not enlarged for AP portable technique. No new/acute findings.
[2018-02-08 12:43] LABS: BAND 1 % (0.0-2.0); Lymphocytes 33 % (24-44); Monocyte 3 % (0.0-12.0); Neutrophils 63 % (36.0-66.0); Total Cells Counted 100
[2018-02-08 12:44] LABS: Platelet Estimate NORMAL (NORMAL)
[2018-02-08 12:45] LABS: Granulocyte Absolute (ANC) 10.25 (1.4-6.9)
[2018-02-08 12:48] LABS: ALBUMIN 3.9 g/dL (3.5-5.0); ALKALINE PHOSPHATASE 125 U/L (38-126); ANION GAP 15.1 MEQ/L (5-15); BLOOD UREA NITROGEN 19 mg/dL (7-17); CHLORIDE 105 mmol/L (98-107); Carbon Dioxide 27 mmol/L (22-30); Creatinine 1 0.96 mg/dL (0.52-1.04); Glucose 120 mg/dL (74-106); SGOT/AST 17 U/L (14-36); SGPT/ALT 26 U/L (0-35); SODIUM 145 mmol/L (137-145); Total Protein 6.8 g/dL (6.3-8.2)
[2018-02-08] MEDS ORDERED: K-LYTE 25 MEQ PO ONE (12:57)
[2018-02-08] MEDS ORDERED: K-LYTE 25 MEQ ONE (13:11)
--- NOTE | 2018-02-08 14:15 | XRAY ---
Indication: Cough and short of breath 2 weeks. Elevated d-dimer. Multiple contiguous axial images obtained through the chest using 100 cc Isovue 370 contrast and PE protocol. Comparison: None There is satisfactory opacification of the pulmonary arteries to include the lobar and segmental branches. No filling defect or pulmonary embolus. Heart is not enlarged. Aorta is normal in course and caliber without aneurysm/dissection. A few small mediastinal lymph nodes. No pathologic mediastinal/hilar lymphadenopathy. Small hiatal hernia. Examination of the lung parenchyma demonstrates subtle patchy airspace opacities in both upper lobes. Also mild bilateral upper lobe pulmonary emphysema, lingular subsegmental atelectasis/scarring, and minimal bibasilar scarring. No effusion. Bony thorax intact with mild degenerative changes throughout the spine. Limited upper abdomen demonstrates fatty liver. Impression: 1. Negative pulmonary embolus. 2. Minimal patchy airspace disease in both upper lobes. 3. Mild pulmonary emphysema and scattered subsegmental atelectasis/scarring. 4. Incidental small hiatal hernia and fatty liver. CT DI 22.45
[2018-02-08] MEDS ORDERED: solu-MEDROL 125 MG IV ONE (14:58)
[2018-02-08] MEDS ORDERED: BENADRYL 50 MG/ML IV ONE (14:58)
[2018-02-08] MEDS ORDERED: BENADRYL 50 MG/ML ONE (15:18)
[2018-02-08] MEDS ORDERED: solu-MEDROL 125 MG ONE (15:18)
[2018-02-08 15:30] VITALS: BP 161/80; PULSE 68; O2SAT 97
== END 2018-02-08 15:33 | disposition home or self-care (01) ==
LOC: ED 11:53
DX: J98.01 Acute bronchospasm (principal); R07.89 Other chest pain; J44.9 Chronic obstructive pulmonary disease, unspecified; F17.210 Nicotine dependence, cigarettes, uncomplicated; Z79.899 Other long term (current) drug therapy
CPT/HCPCS: 36000; 36415; 71045; 71260; 80053; 84484; 85025; 85379; 93005; 93041; 96374; 96375; 99284; J1200; J2930; A9270-GY

== ENCOUNTER 2018-06-03 05:46 | Day surgery (SDC) | payer MEDICARE, OTHER ==
[2018-06-03] MEDS ORDERED: Ketamine HCl 50 MG/ML IJ ONE (05:47)
[2018-06-03] MEDS ORDERED: DIPRIVAN 200 MG/20 ML IV ONE (05:47)
[2018-06-03] MEDS ORDERED: Lactated Ringers 1,000 ML IV SCH (06:30)
[2018-06-03] MEDS ORDERED: Lactated Ringers 1,000 ML IV ONE (06:41)
[2018-06-03 08:13] VITALS: O2SAT 99
[2018-06-03 08:35] VITALS: BP 140/86; PULSE 70
--- NOTE | 2018-06-03 11:11 | OP ---
SURGERY DATE/TIME: 06/03/2018 0728 PREOPERATIVE DIAGNOSIS: Screening exam. POSTOPERATIVE DIAGNOSIS: Mild diverticulosis throughout the colon. PROCEDURE: Colonoscopy. SURGEON: Dr. Henry. ANESTHESIA: MAC. Medications given by anesthesia department. HISTORY: The patient is a 68 year-old white female presenting now for screening colonoscopy. She was appraised of the risks of the procedure including the risk of perforation, phlebitis, untoward reaction to medication, bleeding and missed lesions. The patient verbalized her understanding and desired to have the procedure performed. DESCRIPTION OF PROCEDURE: The patient was given the medications by the anesthesia department. She had continuous pulse oximetry, ECG monitoring, intermittent blood pressure monitoring and tidal CO2 monitoring during the examination. She was placed in the left lateral decubitus position. A digital rectal examination was performed and revealed external hemorrhoids, normal anal sphincter tone and no masses. The flexible Olympus pediatric colonoscope was used to intubate the rectum. A view of the colon was developed sequentially to the cecum. Upon insertion and withdrawal, including a retroflex view in the rectum was noted scattered diverticula throughout the colon. The scope was removed from the patient who tolerated the procedure well and was sent back to OP recovery in good condition. The prep was noted to be fair to good.
== END 2018-06-03 08:40 | disposition home or self-care (01) ==
LOC: SDC 05:46
PROVIDERS: ATTEND Family Medicine
DX: Z12.11 Encounter for screening for malignant neoplasm of colon (principal); K57.90 Diverticulosis of intestine, part unspecified, without perforation or abscess without bleeding
CPT/HCPCS: 94250; G0121; 99100; J2704

== ENCOUNTER 2018-12-22 07:07 | Inpatient (IN) | payer MEDICARE, OTHER ==
[2018-12-22] MEDS ORDERED: LEVOFLOXACIN 750MG/150ML D5W 750 MG/150 ML BAG IV STA (07:27)
[2018-12-22] MEDS ORDERED: solu-MEDROL 125 MG IV ONE (07:27)
[2018-12-22] MEDS ORDERED: DUONEB 0.5-3 MG/3 ml Neb IH ONE ×4 (07:27→09:08)
[2018-12-22] MEDS ORDERED: solu-MEDROL 125 MG ONE (07:37)
[2018-12-22] MEDS ORDERED: LEVOFLOXACIN 750MG/150ML D5W 750 MG/150 ML BAG IV ONE ×2 (07:37→07:44)
[2018-12-22 07:49] LABS: Hemoglobin 13.8 gm/dl (12.0-16.0); Mean Cell Volume 85.7 fl (78-100); Mean Corpuscular Hemoglobin 28.2 pg (26-32); Mean Corpuscular Hgb Concent. 32.9 g/dl (32-36); Mean Platelet Volume 12.5 fl (6-9.5); Platelet Count 228 K/mm3 (150-450); Red Cell Distribution Width 14.7 % (11.5-14.0); White Blood Count 16.9 K/mm3 (4.0-10.5)
[2018-12-22 08:02] LABS: ALBUMIN 3.6 g/dL (3.5-5.0); ANION GAP 13.1 MEQ/L (5-15); BILIRUBIN,TOTAL 0.6 mg/dL (0.2-1.3); Calcium 9.5 mg/dL (8.4-10.2); Creatinine 1 1.01 mg/dL (0.52-1.04); MAGNESIUM 2.3 mg/dL (1.6-2.3); Potassium 3.5 mmol/L (3.5-5.1); Total Protein 7.2 g/dL (6.3-8.2)
[2018-12-22 08:21] LABS: INFLUENZA A NEGATIVE (NEGATIVE); INFLUENZA B NEGATIVE (NEGATIVE); RESPIRATORY SYNCTIAL VIRUS NEGATIVE (Negative)
[2018-12-22 08:28] LABS: BAND 1 % (0.0-2.0); Lymphocytes 21 % (24-44); Monocyte 7 % (0.0-12.0); Neutrophils 71 % (36.0-66.0); Platelet Estimate NORMAL (NORMAL); Total Cells Counted 100
[2018-12-22] MEDS ORDERED: Tussionex Pennkinetic Susp PO ONE (09:03)
[2018-12-22] MEDS ORDERED: Ativan 2 MG/1 ML VIAL IV ONE (10:30)
[2018-12-22] MEDS ORDERED: PULMICORT 0.5 MG/2 ML RESPULES IH STA (10:30)
[2018-12-22] MEDS ORDERED: PULMICORT 0.5 MG/2 ML RESPULES IH ONE (10:35)
[2018-12-22 10:47] LABS: A-aADO2 44; ABG HEMOGLOBIN 13.7; ABG POTASSIUM 3.2 (3.5-5.1); ABG SITE RIGHT BRACHIAL; ARTERIAL BLD GAS O2 SATURATION 96.2 % (95-100); ARTERIAL BLOOD GAS BASE EXCESS 0.8 (-2.0-2.0); ARTERIAL BLOOD GAS FIO2 21 %; ARTERIAL BLOOD GAS PCO2 34 mmHg (35-45); ARTERIAL BLOOD GAS PO2 63 mmHg (75-100); ARTERIAL BLOOD GAS pH 7.46 (7.35-7.45); CARBOXYHEMOGLOBIN 2.1 % THgb (0.0-6.9); HCO3- 24.2 (22-28); HGB O2 SAT 92.9 g/dF (94-100); Methhemoglobin 1.4 % (1.4-1.5); paO2 pAO1 0.59
[2018-12-22] MEDS ORDERED: Ativan 2 MG/1 ML VIAL ONE (10:59)
--- NOTE | 2018-12-22 11:33 | ERPHSYRPT ---
- History of Present Illness Source: patient Exam Limitations: no limitations Patient Subjective Stated Complaint: being treated for bronchitis by Vivien Guevara x 1 1/2 weeks not improving.. cough and not able to sleep. not improving Triage Nursing Assessment: alert and tearful. SOB and cough.. audible congestions. lung sounds course through out. denies fever. not improving while being treated for bronchitis. states thick cream colored sputum Physician History: Pt is a 68 y/o female that presented to the ED with cough, SOB and wheezing. Pt smokes 1ppd, on a regular basis, but did not smoke for over a week. She is treated for Bronchitis with Prednisone, and Biaxin, but she did not improve. She presented to the ED today, secondary to severe wheeze, and SOB. No chest pain or palpitations. No N/V/D or abdominal pain. No F/C/S. Timing/Duration: day(s) Activities at Onset: none Severity of Dyspnea-Max: moderate Severity of Dyspnea-Current: mild Possible Cause: occasional episodes Modifying Factors: Improves With: albuterol inhaler, coughing, exertion, oxygen Associated Symptoms: cough, wheezing, weakness, productive cough Allergies/Adverse Reactions: Penicillins Allergy (Intermediate, Verified 05/30/18 12:02) Hives ranitidine [From Zantac] Allergy (Intermediate, Verified 05/30/18 12:02) Nausea and Vomiting tolterodine [From Detrol] Allergy (Intermediate, Verified 05/30/18 12:02) Nausea and Vomiting warfarin sodium [From Coumadin] Allergy (Intermediate, Verified 02/02/18 13:37) n&v amoxicillin trihydrate [From Augmentin] Allergy (Verified 02/02/18 13:37) ciprofloxacin [From Cipro] Allergy (Verified 02/02/18 13:37) ciprofloxacin HCl [From Cipro] Allergy (Verified 02/02/18 13:37) codeine Allergy (Verified 02/02/18 13:37) hydrocodone Allergy (Verified 02/02/18 13:37) potassium clavulanate [From Augmentin] Allergy (Verified 02/02/18 13:37) Sulfa (Sulfonamide Antibiotics) Allergy (Verified 02/02/18 13:37) sulfamethoxazole [From Septra] Allergy (Verified 02/02/18 13:37) trimethoprim [From Septra] Allergy (Verified 02/02/18 13:37) Home Medications: Albuterol 17 gm IH Q4-6HPRN PRN 05/30/18 [History] Azelastine HCl 205.5 mcg NS BID 05/30/18 [History] Budesonide/Formoterol Fumarate [Symbicort 160-4.5 Mcg Inhaler] 10.2 gm IH BID [History] Cetirizine HCl [Zyrtec] 10 mg PO HS 05/30/18 [History] Levocetirizine Dihydrochloride [Xyzal] 5 mg PO DAILY 05/30/18 [History] Triamcinolone Acetonide [Nasacort] 0 ml NS DAILY 05/30/18 [History] Hx Tetanus, Diphtheria Vaccination/Date Given: Yes (2016) Hx Influenza Vaccination/Date Given: No Hx Pneumococcal Vaccination/Date Given: No - Review of Systems Constitutional: Malaise Eyes: No Symptoms Ears, Nose, & Throat: No Symptoms Respiratory: Cough, Dyspnea, Dyspnea on Exertion ([place]), Wheezing Cardiac: No Chest Pain, No Edema, No Syncope Abdominal/Gastrointestinal: No Abdominal Pain, No Nausea, No Vomiting, No Diarrhea Genitourinary Symptoms: No Dysuria Musculoskeletal: No Back Pain, No Neck Pain Neurological: No Dizziness, No Focal Weakness, No Sensory Changes Psychological: No Symptoms - Past Medical History Pertinent Past Medical History: Yes Neurological History: No Pertinent History ENT History: No Pertinent History Cardiac History: No Pertinent History Respiratory History: Bronchitis Endocrine Medical History: No Pertinent History Musculoskeletal History: Arthritis GI Medical History: Diverticulosis, Other History: No Pertinent History Psycho-Social History: No Pertinent History Female Reproductive Disorders: No Pertinent History - Past Surgical History Past Surgical History: Yes Neuro Surgical History: No Pertinent History Cardiac: No Pertinent History Respiratory: No Pertinent History Gastrointestinal: Colon Resection Genitourinary: No Pertinent History Musculoskeletal: Joint Replacement Female Surgical History: Hysterectomy Other Surgical History: bilateral hip replacement 2008, 2011 - Social History Smoking Status: Current every day smoker How long have you smoked: yrs Exposure to second hand smoke: Yes Drug Use: none Patient Lives Alone: No - Nursing Vital Signs Nursing Vital Signs: Initial Vital Signs Temperature 97.8 F 12/22/18 07:20 Pulse Rate 86 12/22/18 07:20 Respiratory Rate 22 12/22/18 07:20 Blood Pressure 145/111 12/22/18 07:20 O2 Sat by Pulse Oximetry 93 L 12/22/18 07:20 Pain Scale Pain Intensity 0 - Physical Exam General Appearance: moderate distress Eye Exam: PERRL/EOMI Ears, Nose, Throat Exam: hearing grossly normal Neck Exam: normal inspection, supple Respiratory Exam: respiratory distress, accessory muscle use, prolonged expirations, wheezing Cardiovascular/Chest Exam: normal heart sounds, regular rate/rhythm Abdominal/Gastrointestinal Exam: soft, No tenderness, No distention, No mass Extremity Exam: non-tender, normal range of motion, normal inspection, no calf tenderness, no pedal edema Neurologic Exam: alert, oriented x 3, cooperative, 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 as tested, sensation nml, No motor deficits SpO2 Interpretation: normal SpO2: 98 - Course Nursing assessment & vital signs reviewed: Yes - CT Exams Chest CT Interpretation: Tele-radiologist Report (Groundglass airspace dsx in RUL) Ordered Tests: Active Orders 24 hr Category Date Time Status IV Insertion STAT Care 12/22/18 07:40 Active CHEST WITH CONTRAST [CT] Stat Exams 12/22/18 07:29 Taken ABG [ARTERIAL BLOOD GASES] Stat Lab 12/22/18 10:29 Completed CBC W DIFF Stat Lab 12/22/18 07:39 Completed CMP Stat Lab 12/22/18 07:39 Completed CULTURE,SPUTUM Stat Lab 12/22/18 09:55 Ordered D-DIMER QUANTITATION Stat Lab 12/22/18 07:39 Completed Lactic Acid Stat Lab 12/22/18 07:27 Completed MAGNESIUM Stat Lab 12/22/18 07:39 Completed Manual Differential NC Stat Lab 12/22/18 07:39 Completed NT PRO BNP Stat Lab 12/22/18 07:39 Completed TROPONIN Q3H Lab 12/22/18 07:41 Completed TROPONIN Q3H Lab 12/22/18 11:17 Received TROPONIN Q3H Lab 12/22/18 13:30 Ordered TROPONIN Q3H Lab 12/22/18 16:30 Ordered TROPONIN Q3H Lab 12/22/18 19:30 Ordered UA W/RFX UR CULTURE Stat Lab 12/22/18 07:28 Uncollected Peak Expiratory Flow Rate ONCE RT 12/22/18 07:59 Completed Respiratory Therapy Assessment DAILY RT 12/22/18 07:59 Completed Respiratory Therapy Assessment DAILY RT 12/22/18 09:12 Completed Respiratory Therapy Assessment DAILY RT 12/22/18 10:49 Completed Medication Summary Discontinued Medications Generic Name Dose Route Start Last Admin Trade Name Freq PRN Reason Stop Dose Admin Albuterol/Ipratropium 3 ml 12/22/18 07:27 12/22/18 07:57 Duoneb 0.5-3 Mg/3 Ml Neb IH 12/22/18 07:28 3 ml STAT ONE Administration Albuterol/Ipratropium Confirm 12/22/18 07:48 Duoneb 0.5-3 Mg/3 Ml Neb Administered 12/22/18 07:49 Dose 3 ml IH .STK-MED ONE Albuterol/Ipratropium 3 ml 12/22/18 09:03 12/22/18 09:11 Duoneb 0.5-3 Mg/3 Ml Neb IH 12/22/18 09:04 3 ml STAT ONE Administration Albuterol/Ipratropium Confirm 12/22/18 09:08 Duoneb 0.5-3 Mg/3 Ml Neb Administered 12/22/18 09:09 Dose 3 ml IH .STK-MED ONE Budesonide 0.5 mg 12/22/18 10:30 12/22/18 10:48 Pulmicort 0.5 Mg/2 Ml Respules IH 12/22/18 10:31 0.5 mg ONCE STA Administration Chlorphenir/Hydrocodone Polistirex 5 ml 12/22/18 09:03 12/22/18 09:32 Tussionex Pennkinetic Susp PO 12/22/18 09:04 5 ml STAT ONE Administration Levofloxacin/Dextrose 750 mg in 150 mls @ 100 mls/hr 12/22/18 07:27 12/22/18 07:41 Levofloxacin 750mg/150ml D5w IV 12/22/18 08:56 100 ml/hr STAT STA 100 mls/hr Administration Levofloxacin/Dextrose Confirm 12/22/18 07:37 Levofloxacin 750mg/150ml D5w Administered 12/22/18 07:38 Dose 750 mg in 150 mls @ ud IV .STK-MED ONE Levofloxacin/Dextrose Confirm 12/22/18 07:44 Levofloxacin 750mg/150ml D5w Administered 12/22/18 07:45 Dose 750 mg in 150 mls @ ud IV .STK-MED ONE Lorazepam 1 mg 12/22/18 10:30 12/22/18 11:01 Ativan 2 Mg/1 Ml Vial IV 12/22/18 10:31 1 mg STAT ONE Administration Lorazepam Confirm 12/22/18 10:59 Ativan 2 Mg/1 Ml Vial Administered 12/22/18 11:00 Dose 2 mg .ROUTE .STK-MED ONE Methylprednisolone Sodium Succinate 125 mg 12/22/18 07:27 12/22/18 07:41 Solu-Medrol 125 Mg IV 12/22/18 07:28 125 mg STAT ONE Administration Methylprednisolone Sodium Succinate Confirm 12/22/18 07:37 Solu-Medrol 125 Mg Administered 12/22/18 07:38 Dose 125 mg .ROUTE .STK-MED ONE Lab/Rad Data: Laboratory Result Diagrams 12/22/18 07:39 12/22/18 07:39 Laboratory Results 12/22/18 12/22/18 12/22/18 Range/Units 10:29 07:41 07:39 WBC (4.0-10.5) K/mm3 RBC (4.1-5.4) M/mm3 Hgb (12.0-16.0) gm/dl Hct (35-47) % MCV (78-100) fl MCH (26-32) pg MCHC (32-36) g/dl RDW (11.5-14.0) % Plt Count (150-450) K/mm3 MPV (6-9.5) fl Segmented Neutrophils (36.0-66.0) % Band Neutrophils (0.0-2.0) % Lymphocytes (Manual) (24-44) % Monocytes (Manual) (0.0-12.0) % Platelet Estimate (NORMAL) RBC Morphology D-Dimer (215-500) ng/mL Puncture Site RIGHT BRACHIAL pCO2 34 L (35-45) mmHg pO2 63 L (75-100) mmHg Base Excess 0.8 (-2.0-2.0) O2 Saturation 92.9 L (94-100) g/dF ABG pH 7.46 H (7.35-7.45) ABG HCO3 24.2 (22-28) ABG O2 Sat (Measured) 96.2 (95-100) % Prasanna Test NOT APPLICABLE A-a Gradient 44 a/A Ratio 0.59 Hemoglobin 13.7 Carboxyhemoglobin 2.1 (0.0-6.9) % THgb Methemoglobin 1.4 (1.4-1.5) % Temperature 37.0 C POC O2 Flow Rate 21 % Sodium (137-145) mmol/L Potassium 3.2 L (3.5-5.1) mmol/L Chloride (98-107) mmol/L Carbon Dioxide (22-30) mmol/L Anion Gap (5-15) MEQ/L BUN (7-17) mg/dL Creatinine (0.52-1.04) mg/dL Estimated GFR ML/MIN Glucose (74-106) mg/dL Lactic Acid (0.4-2.0) Calcium (8.4-10.2) mg/dL Magnesium (1.6-2.3) mg/dL Total Bilirubin (0.2-1.3) mg/dL AST (14-36) U/L ALT (0-35) U/L Alkaline Phosphatase (38-126) U/L Troponin I < 0.012 (0.000-0.034) ng/mL NT-Pro-B Natriuret Pep (0-900) pg/mL Serum Total Protein (6.3-8.2) g/dL Albumin (3.5-5.0) g/dL Influenza Type A Ag NEGATIVE (NEGATIVE) Influenza Type B Ag NEGATIVE (NEGATIVE) RSV (PCR) NEGATIVE (Negative) 12/22/18 12/22/18 12/22/18 Range/Units 07:39 07:39 07:39 WBC 16.9 H (4.0-10.5) K/mm3 RBC 4.90 (4.1-5.4) M/mm3 Hgb 13.8 (12.0-16.0) gm/dl Hct 42.0 (35-47) % MCV 85.7 (78-100) fl MCH 28.2 (26-32) pg MCHC 32.9 (32-36) g/dl RDW 14.7 H (11.5-14.0) % Plt Count 228 (150-450) K/mm3 MPV 12.5 H (6-9.5) fl Segmented Neutrophils 71 H (36.0-66.0) % Band Neutrophils 1 (0.0-2.0) % Lymphocytes (Manual) 21 L (24-44) % Monocytes (Manual) 7 (0.0-12.0) % Platelet Estimate NORMAL (NORMAL) RBC Morphology NORMAL D-Dimer 739 H* (215-500) ng/mL Puncture Site pCO2 (35-45) mmHg pO2 (75-100) mmHg Base Excess (-2.0-2.0) O2 Saturation (94-100) g/dF ABG pH (7.35-7.45) ABG HCO3 (22-28) ABG O2 Sat (Measured) (95-100) % Prasanna Test A-a Gradient a/A Ratio Hemoglobin Carboxyhemoglobin (0.0-6.9) % THgb Methemoglobin (1.4-1.5) % Temperature C POC O2 Flow Rate % Sodium 142 (137-145) mmol/L Potassium 3.5 (3.5-5.1) mmol/L Chloride 108 H (98-107) mmol/L Carbon Dioxide 25 (22-30) mmol/L Anion Gap 13.1 (5-15) MEQ/L BUN 21 H (7-17) mg/dL Creatinine 1.01 (0.52-1.04) mg/dL Estimated GFR 57.6 ML/MIN Glucose 85 (74-106) mg/dL Lactic Acid (0.4-2.0) Calcium 9.5 (8.4-10.2) mg/dL Magnesium 2.3 (1.6-2.3) mg/dL Total Bilirubin 0.60 (0.2-1.3) mg/dL AST 25 (14-36) U/L ALT 31 (0-35) U/L Alkaline Phosphatase 126 (38-126) U/L Troponin I (0.000-0.034) ng/mL NT-Pro-B Natriuret Pep 373 (0-900) pg/mL Serum Total Protein 7.2 (6.3-8.2) g/dL Albumin 3.6 (3.5-5.0) g/dL Influenza Type A Ag (NEGATIVE) Influenza Type B Ag (NEGATIVE) RSV (PCR) (Negative) 12/22/18 Range/Units 07:27 WBC (4.0-10.5) K/mm3 RBC (4.1-5.4) M/mm3 Hgb (12.0-16.0) gm/dl Hct (35-47) % MCV (78-100) fl MCH (26-32) pg MCHC (32-36) g/dl RDW (11.5-14.0) % Plt Count (150-450) K/mm3 MPV (6-9.5) fl Segmented Neutrophils (36.0-66.0) % Band Neutrophils (0.0-2.0) % Lymphocytes (Manual) (24-44) % Monocytes (Manual) (0.0-12.0) % Platelet Estimate (NORMAL) RBC Morphology D-Dimer (215-500) ng/mL Puncture Site pCO2 (35-45) mmHg pO2 (75-100) mmHg Base Excess (-2.0-2.0) O2 Saturation (94-100) g/dF ABG pH (7.35-7.45) ABG HCO3 (22-28) ABG O2 Sat (Measured) (95-100) % Prasanna Test A-a Gradient a/A Ratio Hemoglobin Carboxyhemoglobin (0.0-6.9) % THgb Methemoglobin (1.4-1.5) % Temperature C POC O2 Flow Rate % Sodium (137-145) mmol/L Potassium (3.5-5.1) mmol/L Chloride (98-107) mmol/L Carbon Dioxide (22-30) mmol/L Anion Gap (5-15) MEQ/L BUN (7-17) mg/dL Creatinine (0.52-1.04) mg/dL Estimated GFR ML/MIN Glucose (74-106) mg/dL Lactic Acid 1.5 (0.4-2.0) Calcium (8.4-10.2) mg/dL Magnesium (1.6-2.3) mg/dL Total Bilirubin (0.2-1.3) mg/dL AST (14-36) U/L ALT (0-35) U/L Alkaline Phosphatase (38-126) U/L Troponin I (0.000-0.034) ng/mL NT-Pro-B Natriuret Pep (0-900) pg/mL Serum Total Protein (6.3-8.2) g/dL Albumin (3.5-5.0) g/dL Influenza Type A Ag (NEGATIVE) Influenza Type B Ag (NEGATIVE) RSV (PCR) (Negative) - Progress Progress: improved, unchanged Air Movement: fair Progress Note: 12/22/18 11:33 Pt was given duo nebs treatment x2. Levaquin was given IV, and Solu Medrol 125, g IV was given. As pt was still SOB, Pulmicort neb was given and Ativan 1mg IV once. Pt did improve some. As pt is very SOB and wheezy, I discussed with pt admission to the hospital, and Dr Sampson that is covering for Dr Greco was contacted. He accepted her for admission to the hospital for ABX, and steroids. 12/22/18 11:43 Blood Culture(s) Obtained: No Antibiotics given: Yes Discussed with : Adrián Will see patient in: hospital (full admit) - Departure Departure Disposition: In-patient Admission Clinical Impression: PNA (pneumonia) Condition: Fair Critical Care Time: No Referrals: JERAMIE GRECO [Primary Care Provider] -
[2018-12-22] MEDS: Sodium Chloride 0.9% 1000 ML 1,000 ML IV SCH (12:50)
[2018-12-22] MEDS: Lopressor 25MG Tab PO SCH ×2 (14:06→21:35)
[2018-12-22] MEDS: DUONEB 0.5-3 MG/3 ml Neb IH SCH ×3 (14:50→23:58)
[2018-12-22] MEDS ORDERED: PROVENTIL 2.5 MG/3 ML NEB IH SCH (15:00)
[2018-12-22] MEDS: solu-MEDROL 125 MG IV SCH ×2 (17:34→23:50)
[2018-12-22 18:50] LABS: Appearance SLIGHTLY CLOUDY (CLEAR); Bacteria RARE /HPF (NEGATIVE); Bilirubin NEGATIVE (NEGATIVE); Blood SMALL Ery/ul (0-5); Epithelial Cells FEW /HPF (FEW); Glucose >=500 mg/dL (NEGATIVE); Ketones NEGATIVE (NEGATIVE); Leukocyte Esterase NEGATIVE (NEGATIVE); Mucus SLIGHT /HPF (NEGATIVE); Nitrite NEGATIVE (NEGATIVE); Protein,Urine Dip NEGATIVE (Negative); RBC 0-2 /HPF (0-2); Specific Gravity 1.048 (1.005-1.025); Urobilinogen NEGATIVE mg/dL (0-1); WBC 0-2 /HPF (0-5)
--- NOTE | 2018-12-22 20:49 | XRAY ---
Indication: Cough and short of breath. Elevated d-dimer. Multiple contiguous axial images obtained through the chest using 80 cc of Isovue-370 contrast and PE protocol. Comparison: February 08, 2018. There is good opacification of the pulmonary arteries to include the lobar and segmental branches. Again no filling defect or pulmonary embolus. Heart is not enlarged. Aorta is normal in course and caliber. Again small subcentimeter mediastinal nodes. No pathologic mediastinal/hilar lymphadenopathy. Minimally enlarging small hiatal hernia. Examination of the lung parenchyma demonstrates bilateral patchy airspace opacities, greatest right upper lobe. Stable pulmonary emphysema and lingular subsegmental atelectasis/scarring. No consolidation or large effusion. Bony thorax intact again with mild degenerative changes throughout the spine. Limited upper abdomen again demonstrates fatty liver. Impression: 1. Again negative pulmonary embolus. 2. Bilateral patchy airspace disease without consolidation/effusion. 3. Again incidental pulmonary emphysema, scattered atelectasis/scarring, hiatal hernia, and fatty liver. Comment: Preliminary interpretation was made by [facility]. No critical discrepancy. CTDI 23.60
[2018-12-22] MEDS: Pepcid 20 MG PO SCH (21:34)
[2018-12-22] MEDS ORDERED: PULMICORT 0.5 MG/2 ML RESPULES IH SCH (22:00)
[2018-12-23] MEDS: DUONEB 0.5-3 MG/3 ml Neb IH SCH ×4 (03:41→14:49)
[2018-12-23] MEDS: solu-MEDROL 125 MG IV SCH (05:53)
[2018-12-23 06:07] LABS: Hematocrit 38.3 % (35-47); Hemoglobin 12.2 gm/dl (12.0-16.0); Mean Corpuscular Hgb Concent. 31.9 g/dl (32-36); Mean Platelet Volume 12.5 fl (6-9.5); Platelet Count 205 K/mm3 (150-450); Red Blood Count 4.35 M/mm3 (4.1-5.4); Red Cell Distribution Width 14.7 % (11.5-14.0); White Blood Count 13.9 K/mm3 (4.0-10.5)
[2018-12-23 06:11] LABS: ANION GAP 16.2 MEQ/L (5-15); BLOOD UREA NITROGEN 15 mg/dL (7-17); CHLORIDE 107 mmol/L (98-107); Calcium 9.5 mg/dL (8.4-10.2); Carbon Dioxide 21 mmol/L (22-30); Creatinine 1 0.86 mg/dL (0.52-1.04); Glucose 158 mg/dL (74-106); MAGNESIUM 2.1 mg/dL (1.6-2.3); Potassium 3.8 mmol/L (3.5-5.1); SODIUM 140 mmol/L (137-145)
[2018-12-23] MEDS: Sodium Chloride 0.9% 1000 ML 1,000 ML IV SCH (07:55)
[2018-12-23] MEDS: Pepcid 20 MG PO SCH (09:24)
[2018-12-23] MEDS: Lopressor 25MG Tab PO SCH (09:24)
[2018-12-23] MEDS ORDERED: LEVOFLOXACIN 750MG/150ML D5W 750 MG/150 ML BAG IV SCH (10:00)
[2018-12-23] MEDS ORDERED: DELTASONE 20 MG PO SCH (10:00)
[2018-12-23] MEDS ORDERED: ENOXAPARIN SODIUM SQ SCH (10:00)
[2018-12-23] MEDS ORDERED: Spiriva 18 Mcg/Cap Inhaler IH SCH (10:00)
[2018-12-23 13:16] VITALS: BP 144/66
[2018-12-23 15:00] VITALS: PULSE 84; O2SAT 97
--- NOTE | 2018-12-23 15:25 | PCM.DCORD ---
- Discharge Discharge Date: 12/23/18 Prescriptions: New Prednisone 20 mg [Deltasone 20 mg] 60 mg PO DAILY 5 Days #15 tablet Continue Clarithromycin 500 mg PO Q12H Metoprolol Tartrate 25 mg PO BID Albuterol 8 gm Mdi Hfa [Ventolin Hfa MDI] 2 puff IH Q4-6HPRN PRN PRN Reason: Shortness Of Breath/Wheezing Discontinued Prednisone 10 mg [Deltasone 10 mg] 1 tab PO UD Follow up with: JERAMIE GRECO [Primary Care Provider] - 12/27/18 9:30 am
--- NOTE | 2018-12-24 09:51 | PFT ---
DATE OF STUDY: 12/23/2018 INDICATION: Evaluation of shortness of breath, chronic bronchitis. IMPRESSION: 1) Spirometry shows moderate to severe obstructive pattern. 2) A post-bronchodilator spirometry shows statistically significant improvement in FEV1 and FVC consistent with bronchodilator reversibility and the patient will benefit from use of these medications. 3) Maximum voluntary ventilation is moderately reduced. 4) Lung volumes show air trapping. 5) Diffusion capacity is moderately reduced but normalizes when corrected for alveolar volume. 6) Flow volume loop shows obstructive pattern.
--- NOTE | 2018-12-27 14:33 | SSS ---
DISCHARGE DIAGNOSIS: ACUTE EXACERBATION OF CHRONIC OBSTRUCTIVE PULMONARY DISEASE. HISTORY: The patient is a 68 year-old white female with a long history of smoking and chronic obstructive pulmonary disease exacerbation. She has had multiple visits to the hospital for same and continues to smoke despite her continued problems. She is currently not on oxygen at home but, in my opinion, is not far from needing routine home oxygen. PAST MEDICAL/SURGICAL HISTORY: The patient's history is otherwise significant for diverticulosis. She has had bilateral hip replacement. HOME MEDICATIONS: Currently Albuterol, Astelin nasal spray, Zyrtec, Symbicort, Xyzal, and Nasacort nasal sprays. ALLERGIES: PENICILLIN, ZANTAC, DETROL, COUMADIN, AMOXICILLIN, CIPROFLOXACIN, CODEINE, HYDROCODONE, POTASSIUM, SULFA, TRIMETHAPRIM. SIGNIFICANT FOR MULTIPLE MEDICAL ALLERGIES WHICH MOST ARE REALLY UNTOWARD REACTIONS THAN TRUE ALLERGIES. 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 She is . PHYSICAL EXAMINATION: Her vital signs on admission showed a temperature 97.8F, pulse 86, respiratory rate 22, blood pressure 145/111. O2 saturation 93%. HEENT: Normocephalic, atraumatic. Pupils equal round reactive to light. Extraocular movements intact. Oropharynx is pink and moist. NECK: Supple without lymphadenopathy, thyromegaly or JVD. CHEST: Bilateral wheezes and diminished air movement. HEART: Regular rate and rhythm. ABDOMEN: Soft. No palpable masses. EXTREMITIES: Without cyanosis, clubbing or edema. NEUROLOGIC: The patient is alert and oriented x3. The patient is quite upset and tearful. She gets that way quite easily when I see her especially when she has been admitted to the hospital. She calmed down nicely after our discussion and by the time of our evaluation she was doing much better, having had steroid IV medications overnight. LAB DATA AND TESTS: The patient's studies otherwise revealed her white count to be 13,900. Her hemoglobin 12.2, PLT count was 205,000. Her sugar was 158, BUN 15, creatinine 0.86. Her troponin was less than 0.912 on multiple occasions measured. Her liver enzymes were normal. UA was normal other than sugar present in the urine. The patient's chest CT was performed and ruled out pulmonary embolism. There was bilateral patchy airspace disease without consolidation, pulmonary emphysema, scarring, atelectasis seen throughout as well as small hiatal hernia and fatty liver. HOSPITAL COURSE: After the patient received IV steroids, IV antibiotics and oxygen, she was doing much better by the next morning. In fact I felt that she was back to her baseline and basically ready to discharge home on prednisone at 60 mg a day, continue to use her home medications and follow up in the office in one week.
== END 2018-12-23 15:48 | disposition home or self-care (01) | DRG 192 ==
LOC: ED 07:07 → MED SURG 12:07
PROVIDERS: ADMIT Family Medicine; ATTEND Family Medicine
DX: J44.1 Chronic obstructive pulmonary disease with (acute) exacerbation (principal); J18.9 Pneumonia, unspecified organism; R53.1 Weakness; Z79.899 Other long term (current) drug therapy; F17.200 Nicotine dependence, unspecified, uncomplicated
CPT/HCPCS: 36000; 36415; 36600; 71260; 80048; 80053; 81001; 82375; 82803; 83605; 83735; 83880; 84484; 85025; 85027; 85379; 87070; 87631; 94060; 94150; 94640; 94726; 94729; 94760; 96365; 96374; 96375; 99285; J1650; J1956; J2060; J2930; A9270-GY

== ENCOUNTER 2019-02-26 12:10 | Observation (INO) | payer MEDICARE, OTHER | END 2019-02-27 11:00 | disposition home or self-care (01) | LOC: ED 12:10 → MED SURG 15:29 ==

== ENCOUNTER 2019-08-04 16:22 | Emergency (ER) | payer MEDICARE, OTHER ==
--- NOTE | 2019-08-04 16:29 | ERPHSYRPT ---
- History of Present Illness Time Seen by Provider: 08/04/19 16:29 Source: patient, EMS Exam Limitations: no limitations Physician History: 69 y/o obese white female with h/o chronic bronchitis on tapering steroid dose and has multiple narcotics allergies, presents with right lateral rib pain. sudden onset of pain after bending over and sensing an associated pop. pt had right 7 and 8 rib fx 02/26/19 after a coughing spell. feels the same today. pt can take tylenol, ibuprofen and morphine for pain. Timing/Duration: today Severity: moderate Modifying Factors: Improves With: movement Associated Symptoms: denies symptoms, cough (chronic), No shortness of breath, No chest pain Allergies/Adverse Reactions: Penicillins Allergy (Intermediate, Verified 08/04/19 16:24) Hives ranitidine [From Zantac] Allergy (Intermediate, Verified 08/04/19 16:24) Nausea and Vomiting tolterodine [From Detrol] Allergy (Intermediate, Verified 08/04/19 16:24) Nausea and Vomiting warfarin sodium [From Coumadin] Allergy (Intermediate, Verified 08/04/19 16:24) n&v amoxicillin trihydrate [From Augmentin] Allergy (Verified 08/04/19 16:24) ciprofloxacin [From Cipro] Allergy (Verified 08/04/19 16:24) ciprofloxacin HCl [From Cipro] Allergy (Verified 08/04/19 16:24) codeine Allergy (Verified 08/04/19 16:24) hydrocodone Allergy (Verified 08/04/19 16:24) potassium clavulanate [From Augmentin] Allergy (Verified 08/04/19 16:24) Sulfa (Sulfonamide Antibiotics) Allergy (Verified 08/04/19 16:24) sulfamethoxazole [From Septra] Allergy (Verified 08/04/19 16:24) trimethoprim [From Septra] Allergy (Verified 08/04/19 16:24) Home Medications: Diphenhydramine HCl [Benadryl] 25 mg PO 08/04/19 [History] Prednisone 20 mg PO DAILY 08/04/19 [History] Hx Tetanus, Diphtheria Vaccination/Date Given: Yes (2016) Hx Influenza Vaccination/Date Given: No Hx Pneumococcal Vaccination/Date Given: No - Review of Systems Constitutional: No Symptoms Eyes: No Symptoms Ears, Nose, & Throat: No Symptoms Respiratory: No Symptoms Cardiac: No Symptoms Abdominal/Gastrointestinal: No Symptoms Genitourinary Symptoms: No Symptoms Musculoskeletal: Other (right rib pain) Skin: No Symptoms Neurological: No Symptoms Psychological: No Symptoms Endocrine: No Symptoms Hematologic/Lymphatic: No Symptoms Immunological/Allergic: No Symptoms All Other Systems: Reviewed and Negative - Past Medical History Pertinent Past Medical History: Yes Neurological History: No Pertinent History ENT History: No Pertinent History Cardiac History: No Pertinent History Respiratory History: Asthma, Bronchitis, Pneumonia Endocrine Medical History: No Pertinent History Musculoskeletal History: Arthritis GI Medical History: Diverticulosis, Other History: No Pertinent History Psycho-Social History: No Pertinent History Female Reproductive Disorders: No Pertinent History Other Medical History: pt states a Hx of Hepatitis in her 20s not sure what kind. /18 in. of Colon removed 18-19 years ago. - Past Surgical History Past Surgical History: Yes Neuro Surgical History: No Pertinent History Cardiac: No Pertinent History Respiratory: No Pertinent History Gastrointestinal: Colon Resection Genitourinary: No Pertinent History Musculoskeletal: Joint Replacement Female Surgical History: Hysterectomy Other Surgical History: bilateral hip replacement 2008, 2011 - Social History Smoking Status: Current every day smoker How long have you smoked: 50 years Exposure to second hand smoke: No Drug Use: none Patient Lives Alone: No - Nursing Vital Signs Nursing Vital Signs: Initial Vital Signs Temperature 98.0 F 08/04/19 16:23 Pulse Rate 86 08/04/19 16:23 Respiratory Rate 22 08/04/19 16:23 Blood Pressure 162/90 08/04/19 16:23 O2 Sat by Pulse Oximetry 98 08/04/19 16:23 Pain Scale Pain Intensity 6 - Physical Exam General Appearance: mild distress, alert, anxiety Eye Exam: PERRL/EOMI, eyes nml inspection Ears, Nose, Throat Exam: normal ENT inspection, moist mucous membranes Neck Exam: normal inspection, non-tender, supple, full range of motion Respiratory Exam: normal breath sounds, lungs clear, airway intact, other ( right rib pain), No respiratory distress, No accessory muscle use, No rhonchi, No wheezing, No stridor Cardiovascular Exam: regular rate/rhythm, normal heart sounds, normal peripheral pulses Gastrointestinal/Abdomen Exam: soft, normal bowel sounds, No tenderness Pelvic Exam: not done Back Exam: normal inspection, normal range of motion, No CVA tenderness, No vertebral tenderness Extremity Exam: normal inspection, normal range of motion, pelvis stable Neurologic Exam: alert, oriented x 3, 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, 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 Skin Exam: normal color, warm, dry Lymphatic Exam: No adenopathy SpO2 Interpretation: normal O2 Delivery: Room Air Ordered Tests: Active Orders 24 hr Category Date Time Status RIBS UNILATERAL Stat Exams 08/04/19 16:42 Completed Medication Summary Discontinued Medications Generic Name Dose Route Start Last Admin Trade Name Barry PRN Reason Stop Dose Admin Morphine Sulfate 2 mg 08/04/19 17:06 08/04/19 17:12 Morphine Sulfate 2 Mg Inj IM 08/04/19 17:07 2 mg STAT ONE Administration Morphine Sulfate Confirm 08/04/19 17:09 Morphine Sulfate 2 Mg Inj Administered 08/04/19 17:10 Dose 2 mg .ROUTE .STK-MED ONE Ondansetron HCl 4 mg 08/04/19 17:06 08/04/19 17:12 Zofran Odt 4 Mg PO 08/04/19 17:07 4 mg STAT ONE Administration Ondansetron HCl Confirm 08/04/19 17:09 Zofran Odt 4 Mg Administered 08/04/19 17:10 Dose 4 mg .ROUTE .STK-MED ONE - Progress Progress: improved Progress Note: 08/04/19 17:53 cxr/rib xray-no acute process. old healing ribs on right pt feeling better. will give additional 2mg im morphine for ride home. 08/04/19 17:54 had long d/w pt regarding pain control. pt has opted for only tylenol and ibuprofen Counseled pt/family regarding: diagnosis, need for follow-up, rad results - Departure Departure Disposition: Home Clinical Impression: Rib pain on right side Condition: Stable Critical Care Time: No Referrals: JERAMIE GRECO [Primary Care Provider] - Additional Instructions: ice pack to right ribs 3 times daily for 2 days. after 2 days, alternate ice and heat to area. tylenol and ibuprofen for pain control. follow up with primary doctor for persistent symptoms
[2019-08-04] MEDS ORDERED: MORPHINE SULFATE 2 MG INJ IM ONE ×2 (17:06→17:53)
[2019-08-04] MEDS ORDERED: ZOFRAN ODT 4 MG PO ONE (17:06)
[2019-08-04] MEDS ORDERED: ZOFRAN ODT 4 MG ONE (17:09)
[2019-08-04] MEDS ORDERED: MORPHINE SULFATE 2 MG INJ ONE ×2 (17:09→17:57)
--- NOTE | 2019-08-04 17:23 | XRAY ---
Indication: Pain following cough. Comparison: February 26, 2019. 2 views of the right ribs demonstrates interval healing posterior lateral 7/8 rib fractures with stable osteopenia, multilevel degenerative spondylosis, and right shoulder degenerative arthropathy. No new/acute findings.
[2019-08-04 18:13] VITALS: BP 176/97; PULSE 79; O2SAT 97
== END 2019-08-04 18:23 | disposition home or self-care (01) ==
LOC: ED 16:22
DX: R07.81 Pleurodynia (principal)
CPT/HCPCS: 71100; 96372; 99284; J2270; Q0162

== ENCOUNTER 2020-10-14 20:12 | Emergency (ER) | payer MEDICARE ==
--- NOTE | 2020-10-14 20:23 | ERPHSYRPT ---
- History of Present Illness Time Seen by Provider: 10/14/20 20:22 Source: patient Exam Limitations: no limitations Physician History: This is a 70-year-old white female former smoker quitting 3 weeks ago and who has a history of asthma, pneumonia and recurrent bronchitis who presents with 2- day history of significant coughing and now right lateral rib pain. Patient was seen at [facility] 2 days ago and was diagnosed with recurrent bronchitis. She was given albuterol and prednisone prescription. She did not receive any cough suppressant medication. Patient has been coughing significantly for the past 2 days and is concerned about new, acute rib fractur es on the right side. She had similar episode on 08/04/2019 and the chest x-ray revealed old, healing rib fractures on the right. Patient did not receive any antibiotics. Patient does not have any anterior chest pain and she has not had any fevers. Timing/Duration: day(s) (2) Cough Quality/Degree: moderate, dry cough Possible Cause: occasional episodes Modifying Factors: Improves With: coughing Associated Symptoms: cough Allergies/Adverse Reactions: amoxicillin trihydrate [From Augmentin] Allergy (Intermediate, Verified 10/14/20 20:25) Nausea and Vomiting ciprofloxacin [From Cipro] Allergy (Intermediate, Verified 10/14/20 20:25) Nausea and Vomiting ciprofloxacin HCl [From Cipro] Allergy (Intermediate, Verified 10/14/20 20:25) Nausea and Vomiting codeine Allergy (Intermediate, Verified 10/14/20 20:25) Nausea and Vomiting hydrocodone Allergy (Intermediate, Verified 10/14/20 20:25) Nausea and Vomiting Penicillins Allergy (Intermediate, Verified 10/14/20 20:25) Hives potassium clavulanate [From Augmentin] Allergy (Intermediate, Verified 10/14/20 20:25) Nausea and Vomiting ranitidine [From Zantac] Allergy (Intermediate, Verified 10/14/20 20:25) Nausea and Vomiting Sulfa (Sulfonamide Antibiotics) Allergy (Intermediate, Verified 10/14/20 20:25) Nausea and Vomiting sulfamethoxazole [From Septra] Allergy (Intermediate, Verified 10/14/20 20:25) Nausea and Vomiting tolterodine [From Detrol] Allergy (Intermediate, Verified 10/14/20 20:25) Nausea and Vomiting trimethoprim [From Septra] Allergy (Intermediate, Verified 10/14/20 20:25) Nausea and Vomiting warfarin sodium [From Coumadin] Allergy (Intermediate, Verified 10/14/20 20:25) n&v tramadol Allergy (Mild, Verified 10/14/20 20:25) Lightheadedness Home Medications: Prednisone 20 mg PO DAILY 08/04/19 [History] diphenhydrAMINE HCL [Benadryl] 25 mg PO HS 08/04/19 [History] Albuterol 2.5 mg/3 ml Neb [Proventil 2.5 mg/3 ml Neb] 2.5 mg IH Q4H PRN PRN 10/14/20 [History] Fluticasone Propionate [Flovent 110 Mcg MDI] 2 inh NEBULIZE Q4H PRN PRN 10/14/20 [History] Hx Tetanus, Diphtheria Vaccination/Date Given: Yes (2016) Hx Influenza Vaccination/Date Given: No Hx Pneumococcal Vaccination/Date Given: No Travel Risk - International Travel Have you traveled outside of the country in past 3 weeks: No - Coronavirus Screening Are you exhibiting any of the following symptoms?: No Close contact with a COVID-19 positive Pt in past 14-21 Days: No - Review of Systems Constitutional: No Symptoms Eyes: No Symptoms Ears, Nose, & Throat: No Symptoms Respiratory: Cough Cardiac: No Symptoms Abdominal/Gastrointestinal: No Symptoms Genitourinary Symptoms: No Symptoms Musculoskeletal: No Symptoms Skin: No Symptoms Neurological: No Symptoms Psychological: No Symptoms Endocrine: No Symptoms Hematologic/Lymphatic: No Symptoms Immunological/Allergic: No Symptoms All Other Systems: Reviewed and Negative - Past Medical History Pertinent Past Medical History: Yes Neurological History: No Pertinent History ENT History: No Pertinent History Cardiac History: No Pertinent History Respiratory History: Asthma, Bronchitis, Pneumonia Endocrine Medical History: No Pertinent History Musculoskeletal History: Arthritis GI Medical History: Diverticulosis, Other History: No Pertinent History Psycho-Social History: No Pertinent History Female Reproductive Disorders: No Pertinent History Other Medical History: pt states a Hx of Hepatitis in her 20s not sure what kind. /18 in. of Colon removed 18-19 years ago. - Past Surgical History Past Surgical History: Yes Neuro Surgical History: No Pertinent History Cardiac: No Pertinent History Respiratory: No Pertinent History Gastrointestinal: Colon Resection Genitourinary: No Pertinent History Musculoskeletal: Joint Replacement Female Surgical History: Hysterectomy Other Surgical History: bilateral hip replacement 2008, 2011 - Social History Smoking Status: Current every day smoker How long have you smoked: 50 years Exposure to second hand smoke: No Drug Use: none Patient Lives Alone: No - Nursing Vital Signs Nursing Vital Signs: Initial Vital Signs Temperature 97.9 F 10/14/20 20:18 Pulse Rate 88 10/14/20 20:18 Respiratory Rate 18 10/14/20 20:18 Blood Pressure 183/82 10/14/20 20:18 O2 Sat by Pulse Oximetry 95 10/14/20 20:18 Pain Scale Pain Intensity 9 - Physical Exam General Appearance: mild distress, alert, anxiety Eye Exam: PERRL/EOMI, eyes nml inspection Ears, Nose, Throat Exam: normal ENT inspection, moist mucous membranes Neck Exam: normal inspection, non-tender, supple, full range of motion Respiratory Exam: normal breath sounds, lungs clear, airway intact, other (Right lateral rib tenderness), No chest tenderness, No respiratory distress Cardiovascular Exam: regular rate/rhythm, normal heart sounds, normal peripheral pulses Pelvic Exam: not done Rectal Exam: not done Back Exam: normal inspection, normal range of motion, No CVA tenderness, No vertebral tenderness Extremity Exam: normal inspection, normal range of motion, pelvis stable Neurologic Exam: alert, oriented x 3, 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, 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, normal mood/affect, nml cerebellar function, nml station & gait, sensation nml Skin Exam: normal color, warm, dry Lymphatic Exam: No adenopathy SpO2 Interpretation: normal SpO2: 95 O2 Delivery: Room Air Ordered Tests: Active Orders 24 hr Category Date Time Status RIBS UNILATERAL Stat Exams 10/14/20 20:27 Taken Medication Summary Generic Name Dose Route Start Last Admin Trade Name Freq PRN Reason Stop Dose Admin Benzonatate 200 mg 10/14/20 21:10 Tessalon Perles 100 Mg PO 10/14/20 21:11 STAT ONE Discontinued Medications Generic Name Dose Route Start Last Admin Trade Name Freq PRN Reason Stop Dose Admin Methylprednisolone Sodium Succinate 125 mg 10/14/20 20:25 10/14/20 21:03 Solu-Medrol 125 Mg IM 10/14/20 20:26 125 mg STAT ONE Administration Methylprednisolone Sodium Succinate Confirm 10/14/20 20:50 Solu-Medrol 125 Mg Administered 10/14/20 20:51 Dose 125 mg .ROUTE .STK-MED ONE Morphine Sulfate 4 mg 10/14/20 20:25 10/14/20 21:03 Morphine Sulfate 4 Mg Inj IM 10/14/20 20:26 4 mg STAT ONE Administration Morphine Sulfate Confirm 10/14/20 20:50 Morphine Sulfate 4 Mg Inj Administered 10/14/20 20:51 Dose 4 mg .ROUTE .STK-MED ONE Ondansetron HCl 4 mg 10/14/20 20:26 10/14/20 21:03 Zofran Odt 4 Mg PO 10/14/20 20:27 4 mg STAT ONE Administration Ondansetron HCl Confirm 10/14/20 20:50 Zofran Odt 4 Mg Administered 10/14/20 20:51 Dose 4 mg .ROUTE .STK-MED ONE - Progress Progress: improved, re-examined Air Movement: good Progress Note: 10/14/20 21:11 Chest x-ray shows old right rib fractures 7 and 8. I see no acute fractures.? Atelectasis versus mild early infiltrate right lower lung lobe. Blood Culture(s) Obtained: No Antibiotics given: Yes Counseled pt/family regarding: diagnosis, need for follow-up, rad results - Departure Departure Disposition: Home Clinical Impression: Bronchitis, Rib pain on right side Condition: Stable Critical Care Time: No Referrals: JERAMIE GRECO [Primary Care Provider] - Additional Instructions: Take your medication as prescribed. Use Tylenol and ibuprofen for pain control. Follow-up with your primary care physician for further management. Prescriptions: Benzonatate [Tessalon Perle] 200 mg PO TID #12 capsule Azithromycin 250 mg [Zithromax 250 MG TABLET] 250 mg PO ZPACK #6 tablet
[2020-10-14] MEDS ORDERED: MORPHINE SULFATE 4 MG INJ IM ONE (20:25)
[2020-10-14] MEDS ORDERED: solu-MEDROL 125 MG IM ONE (20:25)
[2020-10-14] MEDS ORDERED: ZOFRAN ODT 4 MG PO ONE (20:26)
[2020-10-14] MEDS ORDERED: MORPHINE SULFATE 4 MG INJ ONE (20:50)
[2020-10-14] MEDS ORDERED: ZOFRAN ODT 4 MG ONE (20:50)
[2020-10-14] MEDS ORDERED: solu-MEDROL 125 MG ONE (20:50)
[2020-10-14] MEDS ORDERED: Tessalon Perles 100 MG PO ONE ×2 (21:10→21:14)
[2020-10-14] MEDS ORDERED: Rocephin 1000 MG INJ ONE (21:14)
[2020-10-14] MEDS ORDERED: Rocephin 1000 MG INJ IM ONE (21:14)
[2020-10-14 21:34] VITALS: O2SAT 93
[2020-10-14 21:55] VITALS: BP 160/88; PULSE 72
--- NOTE | 2020-10-15 08:39 | XRAY ---
Indication: Pain. History rib fractures. Impression: August 04, 2019. 2 view right ribs again demonstrates old 7-9 posterior lateral rib fractures, osteopenia, shoulder degenerative arthropathy, and multilevel degenerative spondylosis. No acute bony, articular, or soft tissue abnormalities.
== END 2020-10-14 21:54 | disposition home or self-care (01) ==
LOC: ED 20:12
DX: J40 Bronchitis, not specified as acute or chronic (principal); R05 Cough; R07.81 Pleurodynia; F17.210 Nicotine dependence, cigarettes, uncomplicated
CPT/HCPCS: 71100; 96372; 99284; J0696; J2270; J2930; Q0162; A9270-GY

== ENCOUNTER 2021-07-02 04:17 | Emergency (ER) | payer MEDICARE ==
[2021-07-02] MEDS ORDERED: solu-MEDROL 125 MG, Sterile H2O 10 ml 2 ML IM ONE ×2 (04:53)
[2021-07-02] MEDS ORDERED: Sterile H2O 10 ml IJ ONE (05:00)
[2021-07-02] MEDS ORDERED: solu-MEDROL ONE (05:00)
--- NOTE | 2021-07-02 05:06 | ERPHSYRPT ---
- History of Present Illness Time Seen by Provider: 07/02/21 04:40 Source: patient Exam Limitations: no limitations Patient Subjective Stated Complaint: pt states she broke out in hives approx 4 hours ago Triage Nursing Assessment: pt alert and oriented. answers questions approp. pt ambualtory with steady gait noted. respirations nonlabored. hives on chest and under breasts. occasional hive on arms and face. Physician History: This is a 71-year-old white female who is under a lot of stress and broke out in hives approximidnight prior to evaluation this morning. Patient recently placed her in a residential and this has been very stressful for her. Patient does have a history of COPD and bronchitis. She was given a steroid shot approximately 2 weeks ago for bronchitis. Patient did take approximately 50 mg of oral Benadryl at 230 this morning. The rash is very itchy. She has no shortness of breath. She has no chest pain. He said no fevers. Timing/Duration: today Quality: itchy Severity: mild (To moderate) Location: generalized Possible Causes: no cause identified Associated Symptoms: hives Allergies/Adverse Reactions: amoxicillin trihydrate [From Augmentin] Allergy (Intermediate, Verified 07/02/21 04:38) Nausea and Vomiting ciprofloxacin [From Cipro] Allergy (Intermediate, Verified 07/02/21 04:38) Nausea and Vomiting ciprofloxacin HCl [From Cipro] Allergy (Intermediate, Verified 07/02/21 04:38) Nausea and Vomiting codeine Allergy (Intermediate, Verified 07/02/21 04:38) Nausea and Vomiting hydrocodone Allergy (Intermediate, Verified 07/02/21 04:38) Nausea and Vomiting Penicillins Allergy (Intermediate, Verified 07/02/21 04:38) Hives potassium clavulanate [From Augmentin] Allergy (Intermediate, Verified 07/02/21 04:38) Nausea and Vomiting ranitidine [From Zantac] Allergy (Intermediate, Verified 07/02/21 04:38) Nausea and Vomiting Sulfa (Sulfonamide Antibiotics) Allergy (Intermediate, Verified 07/02/21 04:38) Nausea and Vomiting sulfamethoxazole [From Septra] Allergy (Intermediate, Verified 07/02/21 04:38) Nausea and Vomiting tolterodine [From Detrol] Allergy (Intermediate, Verified 07/02/21 04:38) Nausea and Vomiting trimethoprim [From Septra] Allergy (Intermediate, Verified 07/02/21 04:38) Nausea and Vomiting warfarin sodium [From Coumadin] Allergy (Intermediate, Verified 07/02/21 04:38) n&v tramadol Allergy (Mild, Verified 07/02/21 04:38) Lightheadedness Home Medications: diphenhydrAMINE HCL [Benadryl] 25 mg PO HS 08/04/19 [History] Hx Tetanus, Diphtheria Vaccination/Date Given: Yes Hx Influenza Vaccination/Date Given: No Hx Pneumococcal Vaccination/Date Given: Yes Immunizations Up to Date: Yes Travel Risk - International Travel Have you traveled outside of the country in past 3 weeks: No - Coronavirus Screening Are you exhibiting any of the following symptoms?: No Close contact with a COVID-19 positive Pt in past 14-21 Days: No - Vaccine Status Have you recieved a Covid-19 vaccination: Yes 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 - Vaccination Dates Date of 2cond Vaccination (if applicable): november 2020 - Review of Systems Constitutional: No Symptoms Eyes: No Symptoms Ears, Nose, & Throat: No Symptoms Respiratory: No Symptoms Cardiac: No Symptoms Abdominal/Gastrointestinal: No Symptoms Genitourinary Symptoms: No Symptoms Musculoskeletal: No Symptoms Skin: Rash - Past Medical History Pertinent Past Medical History: Yes Neurological History: No Pertinent History ENT History: No Pertinent History Cardiac History: No Pertinent History Respiratory History: Asthma, Bronchitis, Pneumonia Endocrine Medical History: No Pertinent History Musculoskeletal History: Arthritis GI Medical History: Diverticulosis, Other History: No Pertinent History Psycho-Social History: No Pertinent History Female Reproductive Disorders: No Pertinent History Other Medical History: pt states a Hx of Hepatitis in her 20s not sure what kind. /18 in. of Colon removed 18-19 years ago. - Past Surgical History Past Surgical History: Yes Neuro Surgical History: No Pertinent History Cardiac: No Pertinent History Respiratory: No Pertinent History Gastrointestinal: Colon Resection Genitourinary: No Pertinent History Musculoskeletal: Joint Replacement Female Surgical History: Hysterectomy Other Surgical History: bilateral hip replacement 2011 - Social History Smoking Status: Current every day smoker How long have you smoked: 50yrs Exposure to second hand smoke: No Drug Use: none Patient Lives Alone: No - Nursing Vital Signs Nursing Vital Signs: Initial Vital Signs Temperature 98.1 F 07/02/21 04:28 Pulse Rate 91 H 07/02/21 04:28 Respiratory Rate 18 07/02/21 04:28 Blood Pressure 188/108 07/02/21 04:28 O2 Sat by Pulse Oximetry 99 07/02/21 04:28 Pain Scale Pain Intensity 0 - Physical Exam General Appearance: no apparent distress, alert, anxiety Eye Exam: PERRL/EOMI, eyes nml inspection Ears, Nose, Throat Exam: normal ENT inspection, moist mucous membranes Neck Exam: normal inspection, non-tender, supple, full range of motion Respiratory Exam: normal breath sounds, lungs clear, airway intact, No chest tenderness, No respiratory distress Cardiovascular Exam: regular rate/rhythm, normal heart sounds, normal peripheral pulses Gastrointestinal/Abdomen Exam: soft, normal bowel sounds, No tenderness Pelvic Exam: not done Rectal Exam: not done Back Exam: normal inspection, normal range of motion, No CVA tenderness, No vertebral tenderness Extremity Exam: normal inspection, normal range of motion, pelvis stable Neurologic Exam: alert, oriented x 3, 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, 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, normal mood/affect, nml cerebellar function, nml station & gait, sensation nml Skin Exam: rash (Generalized hives.) Lymphatic Exam: No adenopathy SpO2 Interpretation: normal SpO2: 99 O2 Delivery: Room Air - Course Nursing assessment & vital signs reviewed: Yes Ordered Tests: Medication Summary Discontinued Medications Generic Name Dose Route Start Last Admin Trade Name Barry PRN Reason Stop Dose Admin Methylprednisolone Sodium 0 mg 07/02/21 04:53 Succinate 125 mg/ Sterile IM 07/02/21 04:54 Water 2 ml STAT ONE - Progress Progress: unchanged Progress Note: 07/02/21 05:03 I am avoiding using Pepcid in this patient. Patient has nausea and vomiting after taking Zantac so it is listed on her allergy. Patient will be treated with Benadryl and steroids. Counseled pt/family regarding: diagnosis, need for follow-up - Departure Departure Disposition: Home Clinical Impression: Hives Condition: Stable Critical Care Time: No Referrals: JERAMIE HENRY [Primary Care Provider] - Follow up/PCP as directed Additional Instructions: Continue Benadryl 25 to 50 mg orally every 8 hours for the next 4 days. Take your steroid pack as directed. Call Dr. Henry's office on 07/04/2021 for further management and instructions. Return to the emergency department if your symptoms worsen Prescriptions: Methylprednisolone Packet [Medrol Dosepack] 4 mg PO UD #1 packet
[2021-07-04 17:05] VITALS: BP 168/87; PULSE 86; O2SAT 98
== END 2021-07-02 05:26 | disposition home or self-care (01) ==
LOC: ED 04:17
DX: L50.9 Urticaria, unspecified (principal); Z72.0 Tobacco use
CPT/HCPCS: 96372; 99283; J2930

== ENCOUNTER 2021-10-31 15:29 | Emergency (ER) | payer MEDICARE ==
[2021-10-31] MEDS ORDERED: DUONEB 0.5-3 MG/3 ml Neb IH ONE ×2 (15:37→15:49)
[2021-10-31] MEDS ORDERED: solu-MEDROL 125 MG, Sterile H2O 10 ml 2 ML IV ONE ×2 (15:37)
[2021-10-31] MEDS ORDERED: Sodium Chloride 0.9% 1000 ML 1,000 ML IV SCH (15:45)
[2021-10-31] MEDS ORDERED: Sterile H2O 10 ml IJ ONE (15:47)
[2021-10-31] MEDS ORDERED: Sodium Chloride 0.9% 1000 ML 1,000 ML ONE (15:47)
[2021-10-31] MEDS ORDERED: solu-MEDROL ONE (15:47)
[2021-10-31 15:57] LABS: Basophil (Absolute #) 0.01 (0-0.4); Hemoglobin 12.4 gm/dl (12.0-16.0); Mean Platelet Volume 12.1 fl (7.5-11.0)
[2021-10-31 16:03] LABS: Absolute Neutrophil Ct (ANC) 10.35 (1.4-6.9); Eosinophil % 0.7 % (0.00-5.0); Eosinophil (Absolute #) 0.09 (0-0.5); Hematocrit 39.2 % (35-47); Lymphocyte (Absolute #) 1.93 (1.0-4.6); Lymphocytes % 14.8 % (24.0-44.0); Mean Cell Volume 91.6 fl (78-100); Mean Corpuscular Hgb Concent. 31.6 g/dl (32-36); Monocytes % 5.4 % (0.0-12.0); Platelet Count 238 K/mm3 (150-450); Red Blood Count 4.28 M/mm3 (4.1-5.4); Red Cell Distribution Width 14.8 % (11.5-14.0); White Blood Count 13.1 K/mm3 (4.0-10.5)
[2021-10-31 16:07] LABS: INR 1.08 (0.8-3.0); PROTIME 12.7 SECONDS (9.4-12.5)
[2021-10-31 16:13] LABS: ALBUMIN 3.7 g/dL (3.5-5.0); ALKALINE PHOSPHATASE 105 U/L (38-126); ANION GAP 11.8 MEQ/L (5-15); BLOOD UREA NITROGEN 21 mg/dL (7-17); CHLORIDE 108 mmol/L (98-107); Calcium 9.1 mg/dL (8.4-10.2); Carbon Dioxide 25 mmol/L (22-30); Creatinine 1 0.88 mg/dL (0.52-1.04); EST GLOMERULAR FILTRATION RATE > 60.0 ML/MIN; Glucose 81 mg/dL (74-106); SGOT/AST 19 U/L (14-36); SGPT/ALT 15 U/L (0-35); SODIUM 141 mmol/L (137-145); Total Protein 6.4 g/dL (6.3-8.2)
--- NOTE | 2021-10-31 16:31 | XRAY ---
Indication: Cough. Short of breath. Comparison: October 19, 2020. Portable chest overpenetrated in technique. No focal infiltrate, consolidation, or large effusion. Heart not enlarged. Bony thorax intact again with mild osteopenia, degenerative changes, and old right rib fractures. Impression: Nonacute limited chest.
[2021-10-31] MEDS ORDERED: BENADRYL 50 MG/ML ONE (16:40)
[2021-10-31] MEDS ORDERED: BENADRYL 50 MG/ML IV ONE (16:40)
[2021-10-31 16:51] VITALS: O2SAT 94
--- NOTE | 2021-10-31 17:19 | ERPHSYRPT ---
- History of Present Illness Time Seen by Provider: 10/31/21 16:44 Source: patient Exam Limitations: no limitations Patient Subjective Stated Complaint: SOB Triage Nursing Assessment: Patient brought back to ED via w/c and transferred self to bed. Patient A+O X 3. Patient's skin pink, warm and dry. Patient complains of increased SOB today. Patient states she was dx with bronchitis last week and treated with 4 days of steroids. Patient complains of productive cough with thick white sputum. Patient denies pain or discomfort. Lungs noted to be d iminished throughout. Physician History: Patient is a 71-year-old white female who was diagnosed with bronchitis last Sunday. Or 1 week ago she was treated with steroids for 4 days however became increasingly short of breath since yesterday. She has nasal discharge she is coughing up white sputum. She has a history of asthma and COPD. Timing/Duration: week(s) (1) Activities at Onset: none Severity of Dyspnea-Max: moderate Severity of Dyspnea-Current: moderate Possible Cause: occasional episodes Modifying Factors: Improves With: albuterol nebulizer, coughing Associated Symptoms: cough, painful breathing, productive cough Allergies/Adverse Reactions: amoxicillin trihydrate [From Augmentin] Allergy (Intermediate, Verified 10/31/21 15:33) Nausea and Vomiting ciprofloxacin [From Cipro] Allergy (Intermediate, Verified 10/31/21 15:33) Nausea and Vomiting ciprofloxacin HCl [From Cipro] Allergy (Intermediate, Verified 10/31/21 15:33) Nausea and Vomiting codeine Allergy (Intermediate, Verified 10/31/21 15:33) Nausea and Vomiting hydrocodone Allergy (Intermediate, Verified 10/31/21 15:33) Nausea and Vomiting Penicillins Allergy (Intermediate, Verified 10/31/21 15:33) Hives potassium clavulanate [From Augmentin] Allergy (Intermediate, Verified 10/31/21 15:33) Nausea and Vomiting ranitidine [From Zantac] Allergy (Intermediate, Verified 10/31/21 15:33) Nausea and Vomiting Sulfa (Sulfonamide Antibiotics) Allergy (Intermediate, Verified 10/31/21 15:33) Nausea and Vomiting sulfamethoxazole [From Septra] Allergy (Intermediate, Verified 10/31/21 15:33) Nausea and Vomiting tolterodine [From Detrol] Allergy (Intermediate, Verified 10/31/21 15:33) Nausea and Vomiting trimethoprim [From Septra] Allergy (Intermediate, Verified 10/31/21 15:33) Nausea and Vomiting warfarin sodium [From Coumadin] Allergy (Intermediate, Verified 10/31/21 15:33) n&v tramadol Allergy (Mild, Verified 10/31/21 15:33) Lightheadedness Home Medications: diphenhydrAMINE HCL [Benadryl] 25 mg PO HS 08/04/19 [History] Hx Tetanus, Diphtheria Vaccination/Date Given: Yes Hx Influenza Vaccination/Date Given: No Hx Pneumococcal Vaccination/Date Given: Yes Travel Risk - International Travel Have you traveled outside of the country in past 3 weeks: No - Coronavirus Screening Are you exhibiting any of the following symptoms?: No Close contact with a COVID-19 positive Pt in past 14-21 Days: No - Vaccine Status Have you recieved a Covid-19 vaccination: Yes 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 - Vaccination Dates Date of 2cond Vaccination (if applicable): november 2020 - Review of Systems Constitutional: No Fever, No Chills Eyes: No Symptoms Ears, Nose, & Throat: No Symptoms Respiratory: Cough, Dyspnea, Wheezing Cardiac: No Chest Pain, No Edema, No Syncope Abdominal/Gastrointestinal: No Abdominal Pain, No Nausea, No Vomiting, No Diarrhea Genitourinary Symptoms: No Dysuria Musculoskeletal: No Back Pain, No Neck Pain Skin: No Rash Neurological: No Dizziness, No Focal Weakness, No Sensory Changes Psychological: No Symptoms Endocrine: No Symptoms All Other Systems: Reviewed and Negative - Past Medical History Pertinent Past Medical History: Yes Neurological History: No Pertinent History ENT History: No Pertinent History Cardiac History: No Pertinent History Respiratory History: Asthma Endocrine Medical History: No Pertinent History Musculoskeletal History: Arthritis, Other GI Medical History: Diverticulosis, Other History: No Pertinent History Psycho-Social History: No Pertinent History Female Reproductive Disorders: No Pertinent History Other Medical History: COVID-19, complete hysterectomy (48 years ago), colon resection (16"), B RADHA - Past Surgical History Past Surgical History: Yes Neuro Surgical History: No Pertinent History Cardiac: No Pertinent History Respiratory: No Pertinent History Gastrointestinal: Colon Resection Genitourinary: No Pertinent History Musculoskeletal: Joint Replacement Female Surgical History: Hysterectomy Other Surgical History: bilateral hip replacement 2008, 2011 - Social History Smoking Status: Current every day smoker How long have you smoked: 50yrs Exposure to second hand smoke: No Drug Use: none Patient Lives Alone: No - Nursing Vital Signs Nursing Vital Signs: Initial Vital Signs Temperature 99.2 F 10/31/21 15:35 Pulse Rate 92 H 10/31/21 15:35 Respiratory Rate 35 H 10/31/21 15:35 Blood Pressure 163/98 10/31/21 15:35 O2 Sat by Pulse Oximetry 94 L 10/31/21 15:35 Pain Scale Pain Intensity 0 - Physical Exam General Appearance: no apparent distress, alert Eye Exam: PERRL/EOMI Neck Exam: normal inspection, supple Respiratory Exam: respiratory distress, crackles/rales, rhonchi, wheezing Cardiovascular/Chest Exam: normal heart sounds, regular rate/rhythm Abdominal/Gastrointestinal Exam: soft, No tenderness, No distention, No mass Extremity Exam: non-tender, normal range of motion, normal inspection, no calf tenderness, no pedal edema Neurologic Exam: alert, oriented x 3, 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, 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, sensation nml, No motor deficits Skin Exam: normal color, warm, No dry SpO2 Interpretation: normal SpO2: 94 O2 Delivery: Room Air - Course Nursing assessment & vital signs reviewed: Yes EKG Interpreted by Me: RATE, Sinus Tach (106), NORMAL AXIS, NORMAL INTERVALS, NORMAL QRS, NORMAL ST-T - Radiology Exams Chest X-ray Interpretation: Interpreted by me, Negative Ordered Tests: Active Orders 24 hr Category Date Time Status EKG-ER Only STAT Care 10/31/21 15:37 Active IV Insertion STAT Care 10/31/21 15:37 Active CHEST 1 VIEW (PORTABLE) Stat Exams 10/31/21 16:24 Completed BLOOD CULTURE Stat Lab 10/31/21 16:15 Received CBC W DIFF Stat Lab 10/31/21 15:40 Completed CMP Stat Lab 10/31/21 15:40 Completed CULTURE,SPUTUM Stat Lab 10/31/21 15:38 Ordered INFLUENZA A+B JANE Stat Lab 10/31/21 16:24 Received Lactic Acid Stat Lab 10/31/21 15:50 Completed PROCALCITONIN Stat Lab 10/31/21 15:40 Completed PROTIME WITH INR Stat Lab 10/31/21 15:40 Completed UA W/RFX UR CULTURE Stat Lab 10/31/21 15:38 Ordered Respiratory Therapy Assessment ONCE RT 10/31/21 16:50 Active Medication Summary Generic Name Dose Route Start Last Admin Trade Name Barry PRN Reason Stop Dose Admin Sodium Chloride 1,000 mls @ 100 mls/hr 10/31/21 15:45 10/31/21 15:49 Sodium Chloride 0.9% 1000 Ml IV 11/30/21 15:44 100 mls/hr .Q10H ALEXIA Administration Discontinued Medications Generic Name Dose Route Start Last Admin Trade Name Barry PRN Reason Stop Dose Admin Albuterol/Ipratropium 3 ml 10/31/21 15:37 10/31/21 15:50 Ipratropium/Albuterol Sulfate 3 Ml Ampul.Neb IH 10/31/21 15:38 3 ml STAT ONE Administration Albuterol/Ipratropium Confirm 10/31/21 15:49 Ipratropium/Albuterol Sulfate 3 Ml Ampul.Neb Administered 10/31/21 15:50 Dose 3 ml IH .STK-MED ONE Methylprednisolone Sodium 0 mg 10/31/21 15:37 10/31/21 15:49 Succinate 125 mg/ Sterile IV 10/31/21 15:38 125 mg Water 2 ml STAT ONE Administration Diphenhydramine HCl 50 mg 10/31/21 16:40 10/31/21 16:41 Diphenhydramine Hcl 50 Mg/Ml Vial IV 10/31/21 16:41 50 mg STAT ONE Administration Diphenhydramine HCl Confirm 10/31/21 16:40 Diphenhydramine Hcl 50 Mg/Ml Vial Administered 10/31/21 16:41 Dose 50 mg .ROUTE .STK-MED ONE Methylprednisolone Sodium Succinate Confirm 10/31/21 15:47 Methylprednis Sod Succ 125 Mg/2 Ml Vial Administered 10/31/21 15:48 Dose 125 mg .ROUTE .STK-MED ONE Sterile Water Confirm 10/31/21 15:47 Water For Injection,Sterile 10 Ml Vial Administered 10/31/21 15:48 Dose 10 ml IJ .STK-MED ONE Lab/Rad Data: Laboratory Result Diagrams 10/31/21 15:40 10/31/21 15:40 Laboratory Results 10/31/21 10/31/21 10/31/21 Range/Units 15:50 15:40 15:40 WBC (4.0-10.5) K/mm3 RBC (4.1-5.4) M/mm3 Hgb (12.0-16.0) gm/dl Hct (35-47) % MCV (78-100) fl MCH (26-32) pg MCHC (32-36) g/dl RDW (11.5-14.0) % Plt Count (150-450) K/mm3 MPV (7.5-11.0) fl Gran % (36.0-66.0) % Eos # (Auto) (0-0.5) Absolute Lymphs (auto) (1.0-4.6) Absolute Monos (auto) (0.0-1.3) Lymphocytes % (24.0-44.0) % Monocytes % (0.0-12.0) % Eosinophils % (0.00-5.0) % Basophils % (0.0-0.4) % Absolute Granulocytes (1.4-6.9) Basophils # (0-0.4) PT 12.7 H (9.4-12.5) SECONDS INR 1.08 (0.8-3.0) Sodium (137-145) mmol/L Potassium (3.5-5.1) mmol/L Chloride (98-107) mmol/L Carbon Dioxide (22-30) mmol/L Anion Gap (5-15) MEQ/L BUN (7-17) mg/dL Creatinine (0.52-1.04) mg/dL Estimated GFR ML/MIN Glucose (74-106) mg/dL Lactic Acid 1.8 (0.4-2.0) Calcium (8.4-10.2) mg/dL Total Bilirubin (0.2-1.3) mg/dL AST (14-36) U/L ALT (0-35) U/L Alkaline Phosphatase (38-126) U/L Serum Total Protein (6.3-8.2) g/dL Albumin (3.5-5.0) g/dL Procalcitonin 0.075 (0.030-0.080) ng/mL 10/31/21 10/31/21 Range/Units 15:40 15:40 WBC 13.1 H (4.0-10.5) K/mm3 RBC 4.28 (4.1-5.4) M/mm3 Hgb 12.4 (12.0-16.0) gm/dl Hct 39.2 (35-47) % MCV 91.6 (78-100) fl MCH 29.0 (26-32) pg MCHC 31.6 L (32-36) g/dl RDW 14.8 H (11.5-14.0) % Plt Count 238 (150-450) K/mm3 MPV 12.1 H (7.5-11.0) fl Gran % 79.0 H (36.0-66.0) % Eos # (Auto) 0.09 (0-0.5) Absolute Lymphs (auto) 1.93 (1.0-4.6) Absolute Monos (auto) 0.70 (0.0-1.3) Lymphocytes % 14.8 L (24.0-44.0) % Monocytes % 5.4 (0.0-12.0) % Eosinophils % 0.7 (0.00-5.0) % Basophils % 0.1 (0.0-0.4) % Absolute Granulocytes 10.35 H (1.4-6.9) Basophils # 0.01 (0-0.4) PT (9.4-12.5) SECONDS INR (0.8-3.0) Sodium 141 (137-145) mmol/L Potassium 4.0 (3.5-5.1) mmol/L Chloride 108 H (98-107) mmol/L Carbon Dioxide 25 (22-30) mmol/L Anion Gap 11.8 (5-15) MEQ/L BUN 21 H (7-17) mg/dL Creatinine 0.88 (0.52-1.04) mg/dL Estimated GFR > 60.0 ML/MIN Glucose 81 (74-106) mg/dL Lactic Acid (0.4-2.0) Calcium 9.1 (8.4-10.2) mg/dL Total Bilirubin 0.60 (0.2-1.3) mg/dL AST 19 (14-36) U/L ALT 15 (0-35) U/L Alkaline Phosphatase 105 (38-126) U/L Serum Total Protein 6.4 (6.3-8.2) g/dL Albumin 3.7 (3.5-5.0) g/dL Procalcitonin (0.030-0.080) ng/mL - Progress Progress: improved Progress Note: 10/31/21 17:19 Patient was encouraged to be admitted to the hospital but refused since she has to take care of her . We did extract a promise that if she was not better within 36 to 48 hours she would return to the ER. Blood Culture(s) Obtained: Yes Antibiotics given: Yes - Departure Departure Disposition: Home Clinical Impression: Acute exacerbation of COPD with asthma, Urticaria Condition: Fair Critical Care Time: No Referrals: JERAMIE GRECO [Primary Care Provider] - Follow up/PCP as directed Instructions: Chronic Obstructive Pulmonary Disease, Exacerbation of COPD (DC) Prescriptions: Prednisone 10 mg [Deltasone 10 mg] 40 mg PO BID 5 Days #40 tablet
[2021-10-31 17:42] VITALS: BP 144/90; PULSE 86
[2021-10-31 17:55] LABS: INFLUENZA A NEGATIVE (NEGATIVE); INFLUENZA B NEGATIVE (NEGATIVE)
== END 2021-10-31 17:38 | disposition home or self-care (01) ==
LOC: ED 15:29
DX: J44.1 Chronic obstructive pulmonary disease with (acute) exacerbation (principal); J20.9 Acute bronchitis, unspecified; J44.0 Chronic obstructive pulmonary disease with (acute) lower respiratory infection; Z72.0 Tobacco use; L50.9 Urticaria, unspecified; R05.9 Cough, unspecified; Z86.16 Personal history of COVID-19; Z79.52 Long term (current) use of systemic steroids
CPT/HCPCS: 36000; 36415; 71045; 80053; 83605; 84145; 85025; 85610; 87040; 87400; 93005; 94640; 96374; 96375; 99284; J1200; J2930; A9270-GY

== ENCOUNTER 2022-12-24 17:38 | Emergency (ER) | payer MEDICARE ==
[2022-12-24] MEDS ORDERED: TORAdol 30 mg Injection IM ONE (18:05)
[2022-12-24] MEDS ORDERED: TORAdol 30 mg Injection ONE (18:10)
[2022-12-24 20:06] VITALS: BP 159/94; PULSE 64; O2SAT 97
--- NOTE | 2022-12-24 20:23 | ERPHSYRPT ---
- History of Present Illness Time Seen by Provider: 12/24/22 17:44 Historian: patient Exam Limitations: no limitations Patient Subjective Stated Complaint: pt here for pain to right rib area for a week getting worse, just finished antibotics for bronchitis Triage Nursing Assessment: pt alert, resp easy, cough at times, skin w.d.p, edema to lower legs, pain with movement to right rib area. no injury Physician History: 72-year-old female with a history of asthma, COPD, tobacco abuse, previous fracture right ribs who recently finished antibiotics for bronchitis presented with worsening pain right anterior/lateral lower chest wall with movements and better with being in a certain position. No difficulty breathing otherwise. Patient reports she has been coughing for quite some time and believes that she coughed really hard and broke ribs and that is how she broke last time. No fever or chills reported. Prior Chest Pain/Cardiac Workup: no prior chest pain Nitro Today/Relief: no nitro taken today Aspirin Treatment Today: no aspirin today Allergies/Adverse Reactions: amoxicillin trihydrate [From Augmentin] Allergy (Intermediate, Verified 12/24/22 17:45) Nausea and Vomiting ciprofloxacin [From Cipro] Allergy (Intermediate, Verified 12/24/22 17:45) Nausea and Vomiting ciprofloxacin HCl [From Cipro] Allergy (Intermediate, Verified 12/24/22 17:45) Nausea and Vomiting codeine Allergy (Intermediate, Verified 12/24/22 17:45) Nausea and Vomiting hydrocodone Allergy (Intermediate, Verified 12/24/22 17:45) Nausea and Vomiting Penicillins Allergy (Intermediate, Verified 12/24/22 17:45) Hives potassium clavulanate [From Augmentin] Allergy (Intermediate, Verified 12/24/22 17:45) Nausea and Vomiting ranitidine [From Zantac] Allergy (Intermediate, Verified 12/24/22 17:45) Nausea and Vomiting Sulfa (Sulfonamide Antibiotics) Allergy (Intermediate, Verified 12/24/22 17:45) Nausea and Vomiting sulfamethoxazole [From Septra] Allergy (Intermediate, Verified 12/24/22 17:45) Nausea and Vomiting tolterodine [From Detrol] Allergy (Intermediate, Verified 12/24/22 17:45) Nausea and Vomiting trimethoprim [From Septra] Allergy (Intermediate, Verified 12/24/22 17:45) Nausea and Vomiting warfarin sodium [From Coumadin] Allergy (Intermediate, Verified 12/24/22 17:45) n&v tramadol Allergy (Mild, Verified 12/24/22 17:45) Lightheadedness Home Medications: diphenhydrAMINE HCL [Benadryl] 25 mg PO HS 08/04/19 [History] Albuterol Sulfate 1 ea QID 12/24/22 [History] Levocetirizine Dihydrochloride 5 mg PO DAILY 12/24/22 [History] Hx Tetanus, Diphtheria Vaccination/Date Given: Yes Hx Influenza Vaccination/Date Given: Yes Hx Pneumococcal Vaccination/Date Given: Yes Immunizations Up to Date: Yes Travel Risk - International Travel Have you traveled outside of the country in past 3 weeks: No - Coronavirus Screening Are you exhibiting any of the following symptoms?: No Close contact with a COVID-19 positive Pt in past 14-21 Days: No - Vaccine Status Have you recieved a Covid-19 vaccination: Yes 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 - Review of Systems Constitutional: No Symptoms Ears, Nose, & Throat: No Symptoms Respiratory: Cough Cardiac: Chest Pain Abdominal/Gastrointestinal: No Symptoms Genitourinary Symptoms: No Symptoms Musculoskeletal: No Symptoms Skin: No Symptoms Neurological: No Symptoms Hematologic/Lymphatic: No Symptoms Immunological/Allergic: No Symptoms - Past Medical History Pertinent Past Medical History: Yes Neurological History: No Pertinent History ENT History: No Pertinent History Cardiac History: No Pertinent History Respiratory History: Asthma Endocrine Medical History: No Pertinent History Musculoskeletal History: Arthritis, Other GI Medical History: Diverticulosis, Other History: No Pertinent History Psycho-Social History: No Pertinent History Female Reproductive Disorders: No Pertinent History Other Medical History: COVID-19, complete hysterectomy (48 years ago), colon resection (16"), B RADHA - Past Surgical History Past Surgical History: Yes Neuro Surgical History: No Pertinent History Cardiac: No Pertinent History Respiratory: No Pertinent History Gastrointestinal: Colon Resection Genitourinary: No Pertinent History Musculoskeletal: Joint Replacement Female Surgical History: Hysterectomy Other Surgical History: bilateral hip replacement 2011 - Social History Smoking Status: Current every day smoker How long have you smoked: 50yrs Exposure to second hand smoke: Yes Drug Use: none Patient Lives Alone: No - Nursing Vital Signs Nursing Vital Signs: Initial Vital Signs Temperature 97.2 F 12/24/22 17:58 Pulse Rate 93 H 12/24/22 17:58 Respiratory Rate 22 12/24/22 17:58 Blood Pressure 157/95 12/24/22 17:58 O2 Sat by Pulse Oximetry 96 12/24/22 17:58 Pain Scale Pain Intensity 9 - Physical Exam General Appearance: no apparent distress, alert Eye Exam: PERRL/EOMI Ears, Nose, Throat Exam: normal ENT inspection Neck Exam: normal inspection, supple, full range of motion Respiratory Exam: normal breath sounds, chest tenderness (Right anterolateral lower chest wall. No crepitus. No rash), lungs clear Cardiovascular Exam: regular rate/rhythm, normal heart sounds Gastrointestinal/Abdomen Exam: soft, normal bowel sounds, No tenderness Back Exam: normal inspection Extremity Exam: normal inspection Neurologic Exam: alert, oriented x 3, cooperative Skin Exam: normal color SpO2 Interpretation: normal SpO2: 97 O2 Delivery: Room Air Ordered Tests: Active Orders 24 hr Category Date Time Status CHEST 1 VIEW (PORTABLE) Stat Exams 12/24/22 18:05 Taken RIBS UNILATERAL Stat Exams 12/24/22 18:04 Taken Medication Summary Discontinued Medications Generic Name Dose Route Start Last Admin Trade Name Barry PRN Reason Stop Dose Admin Ketorolac Tromethamine 30 mg 12/24/22 18:05 12/24/22 18:12 Ketorolac Tromethamine 30 Mg/Ml Inj IM 12/24/22 18:06 30 mg STAT ONE Administration Ketorolac Tromethamine Confirm 12/24/22 18:10 Ketorolac Tromethamine 30 Mg/Ml Inj Administered 12/24/22 18:11 Dose 30 mg .ROUTE .STK-MED ONE - Progress Progress: improved, re-examined Air Movement: good Progress Note: 12/24/22 20:19 72-year-old with COPD, tobacco abuse, recent bronchitis needing antibiotics still having cough is evaluated for pain antral lateral right chest wall with possible rib fractures. She is not in any distress. No crepitus. X-rays chest reviewed by me is negative for any acute intrathoracic findings and x-ray ribs are negative for rib fractures, pneumothorax etc. I believe patient has rib strains, pain is noncardiac and more of a musculoskeletal, recommended Tylenol or ibuprofen and outpatient follow-up. Discussed signs symptoms of worsening ne ventura return to ER which she seems understanding. Stable for discharge. Blood Culture(s) Obtained: No Antibiotics given: No Counseled pt/family regarding: diagnosis, need for follow-up, rad results, smoking cessation Medical Desision Making - Discussion of managment Agreed on:: Treatment plan, need for follow-up - Diagnostic Testing Diagnostic test were ordered, analyzed, and reviewed by me: Yes Radiological Interpretation: Interpreted by me, Reviewed by me, Teleradiologist Report - Risk of complications The pt has a mod risk of morbidity or mortality based on: Need for prescription drug management - Departure Departure Disposition: Home Clinical Impression: Chest wall muscle strain Condition: Stable Critical Care Time: No Referrals: JERAMIE GRECO [Primary Care Provider] - Follow up/PCP as directed (1-2 days for reevaluation) Instructions: Muscle Strain (DC) Additional Instructions: Take Tylenol/ibuprofen as needed for pain. Follow-up with primary care for reevaluation. Do deep breathing exercises. Return to ER for any worsening.
--- NOTE | 2022-12-25 08:37 | XRAY ---
Indication: Chest wall pain. Comparison: October 31, 2021 Portable chest again hyperinflated with chronic lung markings. No focal infiltrate, consolidation, or large effusion. Heart not enlarged. Bony thorax intact again with osteopenia, moderate degenerative changes, and old bilateral rib fractures. Impression: Continued nonacute chest with chronic features.
--- NOTE | 2022-12-25 10:11 | XRAY ---
CLINICAL HISTORY:Rib pain; COMPARISON:None; TECHNIQUES:X-ray of right ribs-AP and oblique views; FINDINGS: Old healed fracture of seventh, eighth and ninth ribs on right side. No sclerotic or lytic bony lesions. Soft tissue densities appear normal. Degenerative changes in the right shoulder joint. Degenerative changes in the visualized spine. Osteopenic bones. IMPRESSION: Old healed fracture of seventh, eighth and ninth ribs on right side. DISCLAIMER: A subtle bone abnormality or fracture may not be readily apparent on x-rays, thus clinical correlation and further imaging including follow-up CT, MRI, or follow-up x-rays are advised as needed. Electronically Signed by: Jaden Thomson MD. 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
== END 2022-12-24 20:33 | disposition home or self-care (01) ==
LOC: ED 17:38
DX: S29.011A Strain of muscle and tendon of front wall of thorax, initial encounter (principal); R05.9 Cough, unspecified; J44.9 Chronic obstructive pulmonary disease, unspecified; J45.909 Unspecified asthma, uncomplicated; Z72.0 Tobacco use; Z79.899 Other long term (current) drug therapy; Z20.828 Contact with and (suspected) exposure to other viral communicable diseases
CPT/HCPCS: 71045; 71100; 96372; 99283; J1885

== ENCOUNTER 2023-09-24 16:24 | Emergency (ER) | payer MEDICARE ==
[2023-09-24 16:35] VITALS: TEMP 98
[2023-09-24 16:47] LABS: Absolute Neutrophil Ct (ANC) 12.54 x10^3/uL (1.4-6.9); BASOPHIL % 0.1 % (0.0-0.4); Basophil (Absolute #) 0.01 x10^3/uL (0-0.4); Eosinophil (Absolute #) 0 x10^3/uL (0-0.5); Hematocrit 41.7 % (35-47); Hemoglobin 13.3 g/dL (12.0-16.0); IMMATURE GRAN # 0.06 x10^3u/L (0.00-0.03); IMMATURE GRAN % 0.4 % (0.00-0.4); Lymphocyte (Absolute #) 1.38 x10^3/uL (1.0-4.6); Lymphocytes % 9.5 % (24.0-44.0); Mean Corpuscular Hemoglobin 27.4 pg (26-32); Mean Corpuscular Hgb Concent. 31.9 g/dL (32-36); Mean Platelet Volume 12.4 fL (7.5-11.0); Monocyte (Absolute #) 0.47 x10^3/uL (0.0-1.3); Monocytes % 3.3 % (0.0-12.0); Neutrophil % 86.7 % (36.0-66.0); Platelet Count 140 x10^3/uL (150-450); Red Blood Count 4.85 x10^6/uL (4.1-5.4); Red Cell Distribution Width 16.2 % (11.5-14.0); White Blood Count 14.5 x10^3/uL (4.0-10.5)
[2023-09-24] MEDS ORDERED: solu-MEDROL ONE (16:47)
[2023-09-24] MEDS ORDERED: Sterile H2O 10 ml IJ ONE (16:47)
[2023-09-24] MEDS ORDERED: Sodium Chloride 0.9% 1000 ML 1,000 ML ONE (16:47)
[2023-09-24] MEDS ORDERED: PROVENTIL 2.5 MG/3 ML NEB IH ONE (16:48)
[2023-09-24] MEDS: PROVENTIL 2.5 MG/3 ML NEB IH ONE (16:50)
[2023-09-24] MEDS: Sodium Chloride 0.9% 1000 ML 1,000 ML IV SCH (16:53)
[2023-09-24] MEDS: solu-MEDROL 125 MG, Sterile H2O 10 ml 2 ML IV ONE (16:54)
[2023-09-24 17:13] LABS: ALKALINE PHOSPHATASE 103 U/L (38-126); ANION GAP 13.8 MEQ/L (5-15); BLOOD UREA NITROGEN 26 mg/dL (7-17); CHLORIDE 106 mmol/L (98-107); Calcium 8.9 mg/dL (8.4-10.2); Carbon Dioxide 22 mmol/L (22-30); Creatinine 1 1.18 mg/dL (0.52-1.04); EST GLOMERULAR FILTRATION RATE 48.2 ML/MIN; Glucose 134 mg/dL (74-106); MAGNESIUM 2.2 mg/dL (1.6-2.3); NT PRO BNPII 371 pg/mL (<300); SGOT/AST 20 U/L (14-36); SGPT/ALT 19 U/L (0-35); SODIUM 137 mmol/L (137-145); TROPONIN < 0.012 ng/mL (0.000-0.034); Total Protein 7.1 g/dL (6.3-8.2)
[2023-09-24 17:22] VITALS: PULSE 90; RESP 22; O2SAT 95
[2023-09-24 17:24] LABS: INFLUENZA A NEGATIVE (NEGATIVE); RESPIRATORY SYNCTIAL VIRUS NEGATIVE (NEGATIVE); SARS-CoV-2 Xpert Express NEGATIVE (NEGATIVE)
[2023-09-24 17:31] LABS: INFLUENZA B POSITIVE (NEGATIVE)
[2023-09-24 18:01] VITALS: BP 104/89
--- NOTE | 2023-09-24 18:59 | ERPHSYRPT ---
- History of Present Illness Time Seen by Provider: 09/24/23 17:00 Source: patient Exam Limitations: no limitations Patient Subjective Stated Complaint: SOB Triage Nursing Assessment: Patient brought back to ED per w/c and transferred to bed with assist of 1. Patient A+O X3. Patient's skin pink, warm and dry. Patient complains of increased SOB that started last week. Patient has been an steroids and atb the past 3 weeks Patient complains of productive cough with thick white sputum. Lungs noted to be diminished with wheezing insp/exp. Patient denies pain or discomfort. Physician History: Patient is a 73-year-old white female with a long history of asthma and bronchitis who presents with shortness of breath. She also complains of cramps in her hands and legs and not eating. Timing/Duration: day(s) (4) Cough Quality/Degree: productive cough Possible Cause: illness exposure Allergies/Adverse Reactions: amoxicillin trihydrate [From Augmentin] Allergy (Intermediate, Verified 09/24/23 16:28) Nausea and Vomiting ciprofloxacin [From Cipro] Allergy (Intermediate, Verified 09/24/23 16:28) Nausea and Vomiting ciprofloxacin HCl [From Cipro] Allergy (Intermediate, Verified 09/24/23 16:28) Nausea and Vomiting codeine Allergy (Intermediate, Verified 09/24/23 16:28) Nausea and Vomiting hydrocodone Allergy (Intermediate, Verified 09/24/23 16:28) Nausea and Vomiting Penicillins Allergy (Intermediate, Verified 09/24/23 16:28) Hives potassium clavulanate [From Augmentin] Allergy (Intermediate, Verified 09/24/23 16:28) Nausea and Vomiting ranitidine [From Zantac] Allergy (Intermediate, Verified 09/24/23 16:28) Nausea and Vomiting Sulfa (Sulfonamide Antibiotics) Allergy (Intermediate, Verified 09/24/23 16:28) Nausea and Vomiting sulfamethoxazole [From Septra] Allergy (Intermediate, Verified 09/24/23 16:28) Nausea and Vomiting tolterodine [From Detrol] Allergy (Intermediate, Verified 09/24/23 16:28) Nausea and Vomiting trimethoprim [From Septra] Allergy (Intermediate, Verified 09/24/23 16:28) Nausea and Vomiting warfarin sodium [From Coumadin] Allergy (Intermediate, Verified 09/24/23 16:28) n&v tramadol Allergy (Mild, Verified 09/24/23 16:28) Lightheadedness Home Medications: diphenhydrAMINE HCL [Benadryl] 25 mg PO HS 08/04/19 [History] Albuterol Sulfate 1 ea QID 12/24/22 [History] Levocetirizine Dihydrochloride 5 mg PO DAILY 12/24/22 [History] Hx Tetanus, Diphtheria Vaccination/Date Given: Yes Hx Influenza Vaccination/Date Given: Yes Hx Pneumococcal Vaccination/Date Given: Yes Immunizations Up to Date: Yes Travel Risk - International Travel Have you traveled outside of the country in past 3 weeks: No - Coronavirus Screening Are you exhibiting any of the following symptoms?: No Close contact with a COVID-19 positive Pt in past 14-21 Days: No - Vaccine Status Have you recieved a Covid-19 vaccination: Yes Bandage Maker: Unknown - Vaccination Dates Dates if Unknown: ? - Review of Systems Constitutional: No Fever, No Chills Eyes: No Symptoms Ears, Nose, & Throat: No Symptoms Respiratory: Cough, Dyspnea Cardiac: No Chest Pain, No Edema, No Syncope Abdominal/Gastrointestinal: No Abdominal Pain, No Nausea, No Vomiting, No Diarrhea Genitourinary Symptoms: No Dysuria Musculoskeletal: No Back Pain, No Neck Pain Skin: No Rash Neurological: No Dizziness, No Focal Weakness, No Sensory Changes Psychological: No Symptoms Endocrine: No Symptoms All Other Systems: Reviewed and Negative - Past Medical History Pertinent Past Medical History: Yes Neurological History: No Pertinent History ENT History: No Pertinent History Cardiac History: No Pertinent History Respiratory History: Asthma Endocrine Medical History: No Pertinent History Musculoskeletal History: Arthritis, Other GI Medical History: Diverticulosis, Other History: No Pertinent History Psycho-Social History: No Pertinent History Female Reproductive Disorders: No Pertinent History Other Medical History: COVID-19, complete hysterectomy (48 years ago), colon resection (16"), B RADHA - Past Surgical History Past Surgical History: Yes Neuro Surgical History: No Pertinent History Cardiac: No Pertinent History Respiratory: No Pertinent History Gastrointestinal: Colon Resection Genitourinary: No Pertinent History Musculoskeletal: Joint Replacement Female Surgical History: Hysterectomy Other Surgical History: bilateral hip replacement 2008, 2011 - Social History Smoking Status: Current every day smoker How long have you smoked: 50yrs Exposure to second hand smoke: Yes Drug Use: none Patient Lives Alone: No - Nursing Vital Signs Nursing Vital Signs: Initial Vital Signs Temperature 98.0 F 09/24/23 16:29 Pulse Rate 104 H 09/24/23 16:29 Respiratory Rate 25 H 09/24/23 16:29 Blood Pressure 173/99 09/24/23 16:29 O2 Sat by Pulse Oximetry 96 09/24/23 16:29 Pain Scale Pain Intensity 0 - Physical Exam General Appearance: mild distress, alert Eye Exam: PERRL/EOMI, eyes nml inspection Ears, Nose, Throat Exam: normal ENT inspection, TMs normal, pharynx normal, moist mucous membranes Neck Exam: normal inspection, non-tender, supple, full range of motion Respiratory Exam: lungs clear, crackles/rales, rhonchi, wheezing, No respiratory distress Cardiovascular Exam: regular rate/rhythm, normal heart sounds Gastrointestinal/Abdomen Exam: soft, No tenderness Back Exam: normal inspection, No CVA tenderness, No vertebral tenderness Extremity Exam: normal inspection, normal range of motion Neurologic Exam: alert, oriented x 3, cooperative, normal mood/affect, sensation nml, No motor deficits Skin Exam: normal color, warm, dry, No rash Lymphatic Exam: No adenopathy SpO2: 95 - Course Nursing assessment & vital signs reviewed: Yes EKG Interpreted by Me: RATE (101), Sinus Tach, NORMAL AXIS, Non-specific ST Changes, Other (Suggestion of old inferior TN) - Radiology Exams Chest X-ray Interpretation: Interpreted by me Ordered Tests: Active Orders 24 hr Category Date Time Status EKG-ER Only STAT Care 09/24/23 16:30 Active IV Insertion STAT Care 09/24/23 16:30 Active CHEST 1 VIEW (PORTABLE) Stat Exams 09/24/23 16:32 Taken CBC W DIFF Stat Lab 09/24/23 16:40 Completed CMP Stat Lab 09/24/23 16:40 Completed Lactic Acid Stat Lab 09/24/23 16:50 Completed MAGNESIUM Stat Lab 09/24/23 16:40 Completed NT PRO BNPII Stat Lab 09/24/23 16:40 Completed TROPONIN Q4H Lab 09/24/23 Ordered TROPONIN Q4H Lab 09/24/23 16:40 Completed TROPONIN Q4H Lab 09/25/23 00:30 Ordered UA W/RFX UR CULTURE Stat Lab 09/24/23 16:30 Ordered Respiratory Therapy Assessment DAILY RT 09/24/23 17:13 Active Medication Summary Generic Name Dose Route Start Last Admin Trade Name Freq PRN Reason Stop Dose Admin Sodium Chloride 1,000 mls @ 50 mls/hr 09/24/23 16:30 09/24/23 16:53 Sodium Chloride 0.9% 1000 Ml IV 10/24/23 16:29 50 mls/hr .Q20H ALEXIA Administration Discontinued Medications Generic Name Dose Route Start Last Admin Trade Name Barry PRN Reason Stop Dose Admin Albuterol Sulfate 2.5 mg 09/24/23 16:37 09/24/23 16:50 Albuterol Sulfate 2.5 Mg/3 Ml Neb IH 09/24/23 16:38 2.5 mg STAT ONE Administration Albuterol Sulfate Confirm 09/24/23 16:48 Albuterol Sulfate 2.5 Mg/3 Ml Neb Administered 09/24/23 16:49 Dose 2.5 mg IH .STK-MED ONE Methylprednisolone Sodium 0 mg 09/24/23 16:30 09/24/23 16:54 Succinate 125 mg/ Sterile IV 09/24/23 16:31 125 mg Water 2 ml STAT ONE Administration Methylprednisolone Sodium Succinate Confirm 09/24/23 16:47 Methylprednis Sod Succ 125 Mg/2 Ml Vial Administered 09/24/23 16:48 Dose 125 mg .ROUTE .STK-MED ONE Sterile Water Confirm 09/24/23 16:47 Water For Injection,Sterile 10 Ml Vial Administered 09/24/23 16:48 Dose 10 ml IJ .STK-MED ONE Lab/Rad Data: Laboratory Result Diagrams 09/24/23 16:40 09/24/23 16:40 Laboratory Results 09/24/23 09/24/23 09/24/23 Range/Units 16:55 16:50 16:40 WBC (4.0-10.5) x10^3/uL RBC (4.1-5.4) x10^6/uL Hgb (12.0-16.0) g/dL Hct (35-47) % MCV (78-100) fL MCH (26-32) pg MCHC (32-36) g/dL RDW (11.5-14.0) % Plt Count (150-450) x10^3/uL MPV (7.5-11.0) fL Gran % (36.0-66.0) % Immature Gran % (Auto) (0.00-0.4) % Nucleat RBC Rel Count (0.00-0.1) % Eos # (Auto) (0-0.5) x10^3/uL Immature Gran # (Auto) (0.00-0.03) x10^3u/L Absolute Lymphs (auto) (1.0-4.6) x10^3/uL Absolute Monos (auto) (0.0-1.3) x10^3/uL Absolute Nucleated RBC (0.00-0.01) x10^3u/L Lymphocytes % (24.0-44.0) % Monocytes % (0.0-12.0) % Eosinophils % (0.00-5.0) % Basophils % (0.0-0.4) % Absolute Granulocytes (1.4-6.9) x10^3/uL Basophils # (0-0.4) x10^3/uL Sodium 137 (137-145) mmol/L Potassium 4.0 (3.5-5.1) mmol/L Chloride 106 (98-107) mmol/L Carbon Dioxide 22 (22-30) mmol/L Anion Gap 13.8 (5-15) MEQ/L BUN 26 H (7-17) mg/dL Creatinine 1.18 H (0.52-1.04) mg/dL Estimated GFR 48.2 ML/MIN Glucose 134 H (74-106) mg/dL Lactic Acid 2.4 H (0.4-2.0) Calcium 8.9 (8.4-10.2) mg/dL Magnesium 2.2 (1.6-2.3) mg/dL Total Bilirubin 0.90 (0.2-1.3) mg/dL AST 20 (14-36) U/L ALT 19 (0-35) U/L Alkaline Phosphatase 103 (38-126) U/L Troponin I < 0.012 (0.000-0.034) ng/mL NT-Pro-B Natriuret Pep 371 (<300) pg/mL Serum Total Protein 7.1 (6.3-8.2) g/dL Albumin 4.0 (3.5-5.0) g/dL Influenza Type A Ag NEGATIVE (NEGATIVE) Influenza Type B Ag POSITIVE A (NEGATIVE) RSV (PCR) NEGATIVE (NEGATIVE) SARS-CoV-2 (PCR) NEGATIVE (NEGATIVE) 09/24/23 Range/Units 16:40 WBC 14.5 H (4.0-10.5) x10^3/uL RBC 4.85 (4.1-5.4) x10^6/uL Hgb 13.3 (12.0-16.0) g/dL Hct 41.7 (35-47) % MCV 86.0 (78-100) fL MCH 27.4 (26-32) pg MCHC 31.9 L (32-36) g/dL RDW 16.2 H (11.5-14.0) % Plt Count 140 L (150-450) x10^3/uL MPV 12.4 H (7.5-11.0) fL Gran % 86.7 H (36.0-66.0) % Immature Gran % (Auto) 0.4 (0.00-0.4) % Nucleat RBC Rel Count 0.0 (0.00-0.1) % Eos # (Auto) 0 (0-0.5) x10^3/uL Immature Gran # (Auto) 0.06 H (0.00-0.03) x10^3u/L Absolute Lymphs (auto) 1.38 (1.0-4.6) x10^3/uL Absolute Monos (auto) 0.47 (0.0-1.3) x10^3/uL Absolute Nucleated RBC 0.00 (0.00-0.01) x10^3u/L Lymphocytes % 9.5 L (24.0-44.0) % Monocytes % 3.3 (0.0-12.0) % Eosinophils % 0.0 (0.00-5.0) % Basophils % 0.1 (0.0-0.4) % Absolute Granulocytes 12.54 H (1.4-6.9) x10^3/uL Basophils # 0.01 (0-0.4) x10^3/uL Sodium (137-145) mmol/L Potassium (3.5-5.1) mmol/L Chloride (98-107) mmol/L Carbon Dioxide (22-30) mmol/L Anion Gap (5-15) MEQ/L BUN (7-17) mg/dL Creatinine (0.52-1.04) mg/dL Estimated GFR ML/MIN Glucose (74-106) mg/dL Lactic Acid (0.4-2.0) Calcium (8.4-10.2) mg/dL Magnesium (1.6-2.3) mg/dL Total Bilirubin (0.2-1.3) mg/dL AST (14-36) U/L ALT (0-35) U/L Alkaline Phosphatase (38-126) U/L Troponin I (0.000-0.034) ng/mL NT-Pro-B Natriuret Pep (<300) pg/mL Serum Total Protein (6.3-8.2) g/dL Albumin (3.5-5.0) g/dL Influenza Type A Ag (NEGATIVE) Influenza Type B Ag (NEGATIVE) RSV (PCR) (NEGATIVE) SARS-CoV-2 (PCR) (NEGATIVE) - Progress Progress: improved Air Movement: good Blood Culture(s) Obtained: No Antibiotics given: No Medical Desision Making - Diagnostic Testing Diagnostic test were ordered, analyzed, and reviewed by me: Yes Radiological Interpretation: Reviewed by me - Risk of complications Low Risk: Low risk of morbidity from additional dx testing or treatment - Departure Departure Disposition: Home Clinical Impression: Influenza B Condition: Stable Critical Care Time: No Referrals: JERAMIE GRECO [Primary Care Provider] - Follow up/PCP as directed Instructions: Flu, Adult ED Prescriptions: Oseltamivir 75 mg [Tamiflu 75MG Capsule] 75 mg PO BID 5 Days #10 cap
--- NOTE | 2023-09-25 14:01 | XRAY ---
Indication: Short of breath. Comparison: December 24, 2022 Portable chest demonstrates new right base airspace disease without consolidation/large effusion. Enlarged heart obscures left lung base. Remaining lungs clear. Bony thorax intact again with osteopenia, degenerative changes, and old bilateral rib fractures.
== END 2023-09-24 19:22 | disposition home or self-care (01) ==
LOC: ED 16:24
DX: J10.1 Influenza due to other identified influenza virus with other respiratory manifestations (principal); R06.02 Shortness of breath; R25.2 Cramp and spasm; R63.0 Anorexia; Z79.899 Other long term (current) drug therapy; Z86.16 Personal history of COVID-19; Z72.0 Tobacco use
CPT/HCPCS: 0241U; 36000; 36415; 71045; 80053; 83605; 83735; 83880; 84484; 85025; 93005; 94640; 96374; 99284; J2930; J7609; A9270-GY

== ENCOUNTER 2023-10-01 14:59 | Emergency (ER) | payer MEDICARE ==
--- NOTE | 2023-10-01 15:20 | ERPHSYRPT ---
- History of Present Illness Time Seen by Provider: 10/01/23 15:20 Source: patient Exam Limitations: no limitations Physician History: This is a 73-year-old white female patient who was at home on her hands and knees cleaning the floors when she twisted suddenly and then felt a sharp, stabbing pain in her right lateral ribs. This occurred approximately 1 and half hours prior to arrival. Patient is currently being treated for bronchitis. Patient has a history of asthma, diverticulosis, arthritis. She is a daily smoker of cigarettes. Timing/Duration: today Severity: moderate Modifying Factors: Improves With: movement Associated Symptoms: denies symptoms Allergies/Adverse Reactions: amoxicillin trihydrate [From Augmentin] Allergy (Intermediate, Verified 10/01/23 15:48) Nausea and Vomiting ciprofloxacin [From Cipro] Allergy (Intermediate, Verified 10/01/23 15:48) Nausea and Vomiting ciprofloxacin HCl [From Cipro] Allergy (Intermediate, Verified 10/01/23 15:48) Nausea and Vomiting codeine Allergy (Intermediate, Verified 10/01/23 15:48) Nausea and Vomiting hydrocodone Allergy (Intermediate, Verified 10/01/23 15:48) Nausea and Vomiting Penicillins Allergy (Intermediate, Verified 10/01/23 15:48) Hives potassium clavulanate [From Augmentin] Allergy (Intermediate, Verified 10/01/23 15:48) Nausea and Vomiting ranitidine [From Zantac] Allergy (Intermediate, Verified 10/01/23 15:48) Nausea and Vomiting Sulfa (Sulfonamide Antibiotics) Allergy (Intermediate, Verified 10/01/23 15:48) Nausea and Vomiting sulfamethoxazole [From Septra] Allergy (Intermediate, Verified 10/01/23 15:48) Nausea and Vomiting tolterodine [From Detrol] Allergy (Intermediate, Verified 10/01/23 15:48) Nausea and Vomiting trimethoprim [From Septra] Allergy (Intermediate, Verified 10/01/23 15:48) Nausea and Vomiting warfarin sodium [From Coumadin] Allergy (Intermediate, Verified 10/01/23 15:48) n&v tramadol Allergy (Mild, Verified 10/01/23 15:48) Lightheadedness Home Medications: diphenhydrAMINE HCL [Benadryl] 25 mg PO HS 08/04/19 [History] Albuterol Sulfate 1 ea QID 12/24/22 [History] Levocetirizine Dihydrochloride 5 mg PO DAILY 12/24/22 [History] Prednisone 20 mg [Deltasone 20 mg] 1 tab PO DAILY 10/01/23 [History] Hx Tetanus, Diphtheria Vaccination/Date Given: Yes Hx Influenza Vaccination/Date Given: Yes Hx Pneumococcal Vaccination/Date Given: Yes Travel Risk - International Travel Have you traveled outside of the country in past 3 weeks: No - Coronavirus Screening Are you exhibiting any of the following symptoms?: No Close contact with a COVID-19 positive Pt in past 14-21 Days: No - Vaccine Status Have you recieved a Covid-19 vaccination: Yes Radio Reporter: Unknown - Vaccination Dates Dates if Unknown: ? - Review of Systems Constitutional: No Symptoms Eyes: No Symptoms Ears, Nose, & Throat: No Symptoms Respiratory: No Symptoms Cardiac: No Symptoms Abdominal/Gastrointestinal: No Symptoms Genitourinary Symptoms: No Symptoms Musculoskeletal: Other (Right rib pain) Skin: No Symptoms Neurological: No Symptoms Psychological: No Symptoms Endocrine: No Symptoms Hematologic/Lymphatic: No Symptoms Immunological/Allergic: No Symptoms All Other Systems: Reviewed and Negative - Past Medical History Pertinent Past Medical History: Yes Neurological History: No Pertinent History ENT History: No Pertinent History Cardiac History: No Pertinent History Respiratory History: Asthma Endocrine Medical History: No Pertinent History Musculoskeletal History: Arthritis, Other GI Medical History: Diverticulosis, Other History: No Pertinent History Psycho-Social History: No Pertinent History Female Reproductive Disorders: No Pertinent History Other Medical History: COVID-19, complete hysterectomy (48 years ago), colon resection (16"), B RADHA - Past Surgical History Past Surgical History: Yes Neuro Surgical History: No Pertinent History Cardiac: No Pertinent History Respiratory: No Pertinent History Gastrointestinal: Colon Resection Genitourinary: No Pertinent History Musculoskeletal: Joint Replacement Female Surgical History: Hysterectomy Other Surgical History: bilateral hip replacement 2008, 2011 - Social History Smoking Status: Current every day smoker How long have you smoked: 50yrs Exposure to second hand smoke: Yes Drug Use: none Patient Lives Alone: No - Nursing Vital Signs Nursing Vital Signs: Initial Vital Signs O2 Sat by Pulse Oximetry 96 10/01/23 15:45 Pain Scale Pain Intensity 5 - Physical Exam General Appearance: no apparent distress, alert, anxiety Eye Exam: PERRL/EOMI, eyes nml inspection Ears, Nose, Throat Exam: normal ENT inspection, moist mucous membranes Neck Exam: normal inspection, non-tender, supple, full range of motion Respiratory Exam: normal breath sounds, chest tenderness (Right rib pain), lungs clear, airway intact, No respiratory distress Cardiovascular Exam: regular rate/rhythm, normal heart sounds, normal peripheral pulses Gastrointestinal/Abdomen Exam: soft, normal bowel sounds, No tenderness Pelvic Exam: not done Rectal Exam: not done Back Exam: normal inspection, normal range of motion, No CVA tenderness, No vertebral tenderness Extremity Exam: normal inspection, normal range of motion, pelvis stable Neurologic Exam: alert, oriented x 3, cooperative, 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 The level of complexity in the workup performed is based on review of the patient's past medical history, review of the patient's medication list, review of the patient's drug allergy list, history present illness and physical findings on examination. The workup in this patient includes right rib x-rays. 10/01/23 16:41 I interpreted the rib x-rays. I do not appreciate any acute rib fracture. There is no evidence of any acute pneumothorax. Counseled pt/family regarding: diagnosis, need for follow-up, rad results Medical Desision Making - Independent Historian Additional History obtained from: Family - Diagnostic Testing Diagnostic test were ordered, analyzed, and reviewed by me: Yes Radiological Interpretation: Interpreted by me - Risk of complications The pt has a mod risk of morbidity or mortality based on: Need for prescription drug management - Departure Departure Disposition: Home Clinical Impression: Rib pain on right side Condition: Stable Critical Care Time: No Referrals: JERAMIE GRECO [Primary Care Provider] - Follow up/PCP as directed Additional Instructions: Continue your medication as prescribed. Follow-up with your primary care provider tomorrow, 10/02/2023 to obtain follow-up appointment in the next 3 to 5 days. You will receive a phone call from the emergency department if the final read is different from today's emergency room physician's interpretation. Prescriptions: Orphenadrine Citrate 100 mg [Norflex 100 MG Tablet] 100 mg PO BID #10 tab
[2023-10-01 16:29] VITALS: BP 182/94; PULSE 80; RESP 21; O2SAT 95
--- NOTE | 2023-10-01 16:34 | XRAY ---
Indication: Right rib pain following twisting. Comparison: December 24, 2022 2 view right ribs unchanged again demonstrating osteopenia, old 7-9 rib fractures, mild/moderate multilevel degenerative spondylosis, and moderate right shoulder degenerative arthropathy. No new/acute bony, articular, or soft tissue abnormalities.
[2023-10-01] MEDS ORDERED: Norflex 60 MG/2 ML ONE (16:52)
[2023-10-01] MEDS ORDERED: Sterile H2O 10 ml IJ ONE (16:52)
[2023-10-01] MEDS ORDERED: solu-MEDROL ONE (16:52)
[2023-10-01] MEDS: Norflex 60 MG/2 ML IM ONE (16:53)
[2023-10-01] MEDS: solu-MEDROL 125 MG, Sterile H2O 10 ml 2 ML IM ONE (16:53)
== END 2023-10-01 17:32 | disposition home or self-care (01) ==
LOC: ED 14:59
DX: R07.81 Pleurodynia (principal); Z79.52 Long term (current) use of systemic steroids; Z79.899 Other long term (current) drug therapy; Z86.16 Personal history of COVID-19; Z72.0 Tobacco use
CPT/HCPCS: 71100; 96372; 99283; J2360; J2930

== ENCOUNTER 2024-04-18 16:51 | Emergency (ER) | payer MEDICARE ==
--- NOTE | 2024-04-18 17:03 | ERPHSYRPT ---
- History of Present Illness Time Seen by Provider: 04/18/24 17:03 Source: patient, family Exam Limitations: no limitations Physician History: This is a 73-year-old white female patient of nurse practitioner Laura and physician Dr. Henry and presents with known high blood pressure over the last 2 to 3 days. Patient is not on any medications. However, she has noticed intermittent ringing in her ears without visual changes. She has not had any headaches. She denies chest pain. She denies shortness of breath. Home health nurse was at their home approximately 2 days ago and decided to also take the patient's blood pressure and the systolic blood pressure was just over 200 mmHg. She waited a short period of time and took it again and it was over 190 mg of mercury. Patient obtained an appointment to see nurse practitioner Laura on 04/21/[address] Henry on 04/25/2004. Patient was keeping track of her blood pressure over the last 2 days with twice a day readings. Today, she became upset and tearful with her 's worsening Parkinson condition. She took her systolic blood pressure and again the reading spiked up over 200 mmHg. She was brought into the emergency department by her son walking on her own and was visibly tearful. She is experiencing a lot of stress at home. Severity: moderate Associated Symptoms: other, No nausea, No vomiting, No shortness of breath (Tendinitis), No chest pain, No headaches Allergies/Adverse Reactions: amoxicillin trihydrate [From Augmentin] Allergy (Intermediate, Verified 01/04/24 19:55) Nausea and Vomiting ciprofloxacin [From Cipro] Allergy (Intermediate, Verified 01/04/24 19:55) Nausea and Vomiting ciprofloxacin HCl [From Cipro] Allergy (Intermediate, Verified 01/04/24 19:55) Nausea and Vomiting codeine Allergy (Intermediate, Verified 01/04/24 19:55) Nausea and Vomiting hydrocodone Allergy (Intermediate, Verified 01/04/24 19:55) Nausea and Vomiting Penicillins Allergy (Intermediate, Verified 01/04/24 19:55) Hives potassium clavulanate [From Augmentin] Allergy (Intermediate, Verified 01/04/24 19:55) Nausea and Vomiting ranitidine [From Zantac] Allergy (Intermediate, Verified 01/04/24 19:55) Nausea and Vomiting Sulfa (Sulfonamide Antibiotics) Allergy (Intermediate, Verified 01/04/24 19:55) Nausea and Vomiting sulfamethoxazole [From Septra] Allergy (Intermediate, Verified 01/04/24 19:55) Nausea and Vomiting tolterodine [From Detrol] Allergy (Intermediate, Verified 01/04/24 19:55) Nausea and Vomiting trimethoprim [From Septra] Allergy (Intermediate, Verified 01/04/24 19:55) Nausea and Vomiting warfarin sodium [From Coumadin] Allergy (Intermediate, Verified 01/04/24 19:55) n&v tramadol Allergy (Mild, Verified 01/04/24 19:55) Lightheadedness Hx Tetanus, Diphtheria Vaccination/Date Given: Yes Hx Influenza Vaccination/Date Given: Yes Hx Pneumococcal Vaccination/Date Given: Yes Travel Risk - International Travel Have you traveled outside of the country in past 3 weeks: No - Emerging Infectious Disease Are you exhibiting symptoms associated with any current EIDs: No - Review of Systems Constitutional: No Symptoms Eyes: No Symptoms Ears, Nose, & Throat: Tinnitus, Other (Lateral tinnitus) Respiratory: No Symptoms Cardiac: No Symptoms Abdominal/Gastrointestinal: No Symptoms Genitourinary Symptoms: No Symptoms Musculoskeletal: No Symptoms Skin: No Symptoms Neurological: No Symptoms Psychological: No Symptoms Endocrine: No Symptoms Hematologic/Lymphatic: No Symptoms Immunological/Allergic: No Symptoms All Other Systems: Reviewed and Negative - Past Medical History Pertinent Past Medical History: Yes Neurological History: No Pertinent History ENT History: No Pertinent History Cardiac History: No Pertinent History Respiratory History: Asthma Endocrine Medical History: No Pertinent History Musculoskeletal History: Arthritis, Other GI Medical History: Diverticulosis, Other History: No Pertinent History Psycho-Social History: No Pertinent History Female Reproductive Disorders: No Pertinent History Other Medical History: COVID-19, complete hysterectomy (48 years ago), colon resection (16"), B RADHA - Past Surgical History Past Surgical History: Yes Neuro Surgical History: No Pertinent History Cardiac: No Pertinent History Respiratory: No Pertinent History Gastrointestinal: Colon Resection Genitourinary: No Pertinent History Musculoskeletal: Joint Replacement Female Surgical History: Hysterectomy Other Surgical History: bilateral hip replacement 2008, 2011 - Social History Smoking Status: Current every day smoker How long have you smoked: 50yrs Exposure to second hand smoke: Yes Drug Use: none Patient Lives Alone: No - Social Determinants of Health Will the patient participate in the screening: Yes Do you worry about a steady place to live?: No In the past 12 months,have you had to go without utilities?: No Transportation Issues: No Has anyone in your support network made you feel unsafe?: No Have you or anyone in your house had to go without enough: No - Nursing Vital Signs Nursing Vital Signs: Initial Vital Signs Pulse Rate 93 H 04/18/24 17:00 Respiratory Rate 18 04/18/24 17:00 Blood Pressure 139/98 04/18/24 17:00 O2 Sat by Pulse Oximetry 97 04/18/24 17:00 Pain Scale Pain Intensity 0 - Physical Exam General Appearance: no apparent distress, alert, anxiety, obese, other (Intermittently tearful) Eye Exam: PERRL/EOMI, eyes nml inspection Ears, Nose, Throat Exam: normal ENT inspection, moist mucous membranes Neck Exam: normal inspection, non-tender, supple, full range of motion Respiratory Exam: normal breath sounds, lungs clear, airway intact, No chest tenderness, No respiratory distress Cardiovascular Exam: regular rate/rhythm, normal heart sounds, normal peripheral pulses Gastrointestinal/Abdomen Exam: soft, normal bowel sounds, No tenderness Pelvic Exam: not done Rectal Exam: not done Back Exam: normal inspection, normal range of motion, No CVA tenderness, No vertebral tenderness Extremity Exam: normal inspection, normal range of motion, pelvis stable Neurologic Exam: alert, oriented x 3, cooperative, automation qa tester II-XII nml as tested, nml cerebellar function, nml station & gait, sensation nml, depressed mood/affect Skin Exam: normal color, warm, dry Lymphatic Exam: No adenopathy SpO2 Interpretation: normal O2 Delivery: Room Air - Course Nursing assessment & vital signs reviewed: Yes EKG Interpreted by Me: RATE (89), Sinus Rhythm, NORMAL AXIS, NORMAL INTERVALS, NORMAL QRS, NORMAL ST-T, Other (No acute ischemia on today's twelve-lead EKG. QTc is 468) Ordered Tests: Active Orders 24 hr Category Date Time Status Lead Python Developer STAT Care 04/18/24 17:47 Active EKG-ER Only STAT Care 04/18/24 17:50 Active IV Insertion STAT Care 04/18/24 17:47 Active HEAD WITHOUT CONTRAST [CT] Stat Exams 04/18/24 17:47 Taken CBC W DIFF Stat Lab 04/18/24 17:10 Completed CMP Stat Lab 04/18/24 17:10 Completed MAGNESIUM Stat Lab 04/18/24 17:10 Completed UA W/RFX UR CULTURE Stat Lab 04/18/24 17:58 Completed Medication Summary Discontinued Medications Generic Name Dose Route Start Last Admin Trade Name Barry PRAryan Reason Stop Dose Admin Clonidine 0.1 mg 04/18/24 17:48 04/18/24 18:11 Clonidine Hcl 0.1 Mg Tablet PO 04/18/24 17:49 0.1 mg STAT ONE Administration Clonidine Confirm 04/18/24 18:09 Clonidine Hcl 0.1 Mg Tablet Administered 04/18/24 18:10 Dose 0.1 mg .ROUTE .STK-MED ONE Lorazepam 0.5 mg 04/18/24 17:48 04/18/24 18:11 Lorazepam 2 Mg/1 Ml 2 Mg Vial IV 04/18/24 17:49 0.5 mg STAT ONE Administration Lorazepam Confirm 04/18/24 18:09 Lorazepam 2 Mg/1 Ml 2 Mg Vial Administered 04/18/24 18:10 Dose 2 mg .ROUTE .STK-MED ONE Lab/Rad Data: Laboratory Result Diagrams 04/18/24 17:10 04/18/24 17:10 Laboratory Results 04/18/24 04/18/24 04/18/24 Range/Units 17:58 17:10 17:10 WBC 8.7 (3.98-10.04) x10^3/uL RBC 4.73 (3.93-5.22) x10^6/uL Hgb 13.0 (11.2-15.7) g/dL Hct 40.6 (34.1-44.9) % MCV 85.8 (79.4-94.8) fL MCH 27.5 (25.6-32.2) pg MCHC 32.0 L (32.2-35.5) g/dL RDW 14.0 (11.7-14.4) % Plt Count 238 (182-369) x10^3/uL MPV 12.3 (9.4-12.3) fL Gran % 61.4 (34.0-71.1) % Immature Gran % (Auto) 0.5 H (0.001-0.429) % Nucleat RBC Rel Count 0.0 (0.00-0.2) % Eos # (Auto) 0.56 H (0.04-0.36) x10^3/uL Immature Gran # (Auto) 0.04 H (0.001-0.031) x10^3u/L Absolute Lymphs (auto) 2.24 (1.18-3.74) x10^3/uL Absolute Monos (auto) 0.45 (0.24-0.86) x10^3/uL Absolute Nucleated RBC 0.00 (0.00-0.012) x10^3u/L Lymphocytes % 25.7 (19.3-51.7) % Monocytes % 5.2 (4.7-12.5) % Eosinophils % 6.4 H (0.7-5.8) % Basophils % 0.8 (0.1-1.2) % Absolute Granulocytes 5.35 (1.56-6.13) x10^3/uL Basophils # 0.07 (0.01-0.08) x10^3/uL Sodium 142 (135-145) mmol/L Potassium 3.6 (3.5-5.1) mmol/L Chloride 108 H (98-107) mmol/L Carbon Dioxide 23 (22-30) mmol/L Anion Gap 13.9 (5-15) MEQ/L BUN 18 H (7-17) mg/dL Creatinine 1.16 H (0.52-1.04) mg/dL Estimated GFR 49.2 ML/MIN Glucose 124 H (74-106) mg/dL Calcium 9.5 (8.4-10.2) mg/dL Magnesium 2.1 (1.6-2.3) mg/dL Total Bilirubin 0.50 (0.2-1.3) mg/dL AST 28 (14-36) U/L ALT 18 (0-35) U/L Alkaline Phosphatase 123 (38-126) U/L Serum Total Protein 7.3 (6.3-8.2) g/dL Albumin 4.2 (3.5-5.0) g/dL Urine Color Yellow (Yellow) Urine Appearance Cloudy A (Clear) Urine pH 6.0 (4.6-8.0) Ur Specific [place] 1.015 (1.005-1.030) Urine Protein Trace A (Negative) Urine Glucose (UA) Negative (Negative) mg/dL Urine Ketones Negative (Negative) Urine Blood Trace (Negative) Urine Nitrite Negative (Negative) Urine Bilirubin Negative (Negative) Urine Urobilinogen 1.0 A (0.2) mg/dL Ur Leukocyte Esterase Negative (Negative) U Hyaline Cast (Auto) NONE SEEN (0-2) /LPF Urine Microscopic RBC 0-2 (0-5) /HPF Urine Microscopic WBC 0-2 (0-5) /HPF Ur Epithelial Cells Moderate A (None Seen) /HPF Urine Bacteria Few A (None Seen) /HPF Urine Culture Reflexed NO (NO) - Progress Progress: improved, re-examined Progress Note: 04/18/24 18:14 My medical decision making and the assignment of moderate complexity to this patient's medical issue today is based on review of the patient's past medical history, review of the patient's medication list, review of the patient drug allergy list, history present illness and physical findings on examination. The workup in this patient includes placement of intravenous line, provide the patient clonidine 0.1 mg orally, provide the patient with Ativan 0.5 mg intravenously, CBC, CMP, twelve-lead EKG, magnesium level, urinalysis, CT scan of the head. Differential diagnosis includes but not limited to essential hypertension, hypertension secondary to anxiety and stress, arrhythmia, urinary tract infection, electrolyte abnormalities 04/18/24 19:20 Interpreted the patient's laboratory data results. Based on laboratory data results, there are no acute, emergent medical issues. CT scan of the head without contrast was interpreted by the radiologist and I reviewed the impression. There were no comparison CAT scans available to the radiologist. There is evidence of pansinusitis. 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 Counseled pt/family regarding: lab results, diagnosis, need for follow-up, rad results Medical Desision Making - Independent Historian Additional History obtained from: Child - Diagnostic Testing Diagnostic test were ordered, analyzed, and reviewed by me: Yes Radiological Interpretation: Reviewed by me, Teleradiologist Report - Risk of complications The pt has a mod risk of morbidity or mortality based on: Need for prescription drug management - Departure Departure Disposition: Home Clinical Impression: Hypertension, Pansinusitis, Anxiety Condition: Stable Critical Care Time: No Referrals: JERAMIE HENRY [Primary Care Provider] - Follow up/PCP as directed Additional Instructions: Take your medications as prescribed. Continue your twice a day daily log of your blood pressure readings. Keep your appointment with your primary care provider on 04/21/2024. Prescriptions: Lorazepam 0.5 mg [Ativan 0.5 MG] 0.5 mg PO BID PRN #6 tablet PRN Reason: Anxiety Hydrochlorothiazide 25 mg [hydroDIURIL 25 MG] 25 mg PO DAILY #10 tablet Doxycycline Hyclate 100 mg [Vibramycin 100 MG] 100 mg PO BID #14 tab
[2024-04-18 17:17] VITALS: TEMP 98.8
[2024-04-18] MEDS ORDERED: Ativan 2 MG/1 ML VIAL ONE (18:09)
[2024-04-18] MEDS ORDERED: CLONIDINE 0.1 MG TABLET ONE (18:09)
[2024-04-18] MEDS: Ativan 2 MG/1 ML VIAL IV ONE (18:11)
[2024-04-18] MEDS: CLONIDINE 0.1 MG TABLET PO ONE (18:11)
[2024-04-18 18:16] LABS: Absolute Neutrophil Ct (ANC) 5.35 x10^3/uL (1.56-6.13); BASOPHIL % 0.8 % (0.1-1.2); Basophil (Absolute #) 0.07 x10^3/uL (0.01-0.08); Eosinophil % 6.4 % (0.7-5.8); Eosinophil (Absolute #) 0.56 x10^3/uL (0.04-0.36); Hematocrit 40.6 % (34.1-44.9); IMMATURE GRAN # 0.04 x10^3u/L (0.001-0.031); IMMATURE GRAN % 0.5 % (0.001-0.429); Lymphocyte (Absolute #) 2.24 x10^3/uL (1.18-3.74); Lymphocytes % 25.7 % (19.3-51.7); Mean Cell Volume 85.8 fL (79.4-94.8); Mean Corpuscular Hemoglobin 27.5 pg (25.6-32.2); Mean Platelet Volume 12.3 fL (9.4-12.3); Monocyte (Absolute #) 0.45 x10^3/uL (0.24-0.86); Monocytes % 5.2 % (4.7-12.5); Neutrophil % 61.4 % (34.0-71.1); Platelet Count 238 x10^3/uL (182-369); Red Blood Count 4.73 x10^6/uL (3.93-5.22); White Blood Count 8.7 x10^3/uL (3.98-10.04)
[2024-04-18 18:26] LABS: Appearance Cloudy (Clear); Bilirubin Negative (Negative); Blood Trace (Negative); Epithelial Cells Moderate /HPF (None Seen); Glucose, Urine Negative (Negative); Hyaline Casts NONE SEEN /LPF (0-2); Ketones Negative (Negative); Leukocyte Esterase Negative (Negative); Nitrite Negative (Negative); Protein,Urine Dip Trace (Negative); RBC 0-2 /HPF (0-5); Specific Gravity 1.015 (1.005-1.030); WBC 0-2 /HPF (0-5)
[2024-04-18 18:31] LABS: Bacteria Few /HPF (None Seen)
[2024-04-18 18:33] LABS: ALBUMIN 4.2 g/dL (3.5-5.0); ANION GAP 13.9 MEQ/L (5-15); BILIRUBIN,TOTAL 0.5 mg/dL (0.2-1.3); Calcium 9.5 mg/dL (8.4-10.2); Creatinine 1 1.16 mg/dL (0.52-1.04); EST GLOMERULAR FILTRATION RATE 49.2 ML/MIN; MAGNESIUM 2.1 mg/dL (1.6-2.3); Potassium 3.6 mmol/L (3.5-5.1); Total Protein 7.3 g/dL (6.3-8.2)
[2024-04-18 18:55] VITALS: RESP 19; O2SAT 96
[2024-04-18 19:18] VITALS: BP 151/75; PULSE 75
[2024-04-18] MEDS ORDERED: Vibramycin 100 MG ONE (19:31)
[2024-04-18] MEDS: Vibramycin 100 MG PO ONE (19:32)
--- NOTE | 2024-04-19 07:02 | XRAY ---
Indication: Hypertension. Tinnitus. Multiple contiguous axial images obtained through the head without contrast Comparison: None Age-appropriate global atrophy, moderate periventricular degenerative micro-ischemia bilaterally, and right external capsule remote lacunar infarct. No acute intracranial hemorrhage, abnormal extra-axial fluid collection, or mass effect. Fourth ventricle is midline without hydrocephalus. Bony calvarium intact. There is moderate mucosal thickening both ethmoid, both frontal, and lesser degree both maxillary/sphenoid sinuses. Mastoid air cells are clear. Impression: Pansinusitis. Otherwise nonacute senile brain with remote lacunar infarct right internal capsule.
[2024-04-19 16:06] LABS: ADD URINE CULTURE? YES (NO)
== END 2024-04-18 19:57 | disposition home or self-care (01) ==
LOC: ED 16:51
DX: I10 Essential (primary) hypertension (principal); J32.4 Chronic pansinusitis; F41.9 Anxiety disorder, unspecified; Z63.6 Dependent relative needing care at home; Z79.899 Other long term (current) drug therapy; Z72.0 Tobacco use
CPT/HCPCS: 36000; 36415; 70450; 80053; 81001; 83735; 85025; 87086; 93005; 93041; 96374; 99284; J2060; A9270-GY

== ENCOUNTER 2025-05-27 06:16 | Emergency (ER) | payer MEDICARE ==
[2025-05-27 06:37] VITALS: RESP 18; O2SAT 99
--- NOTE | 2025-05-27 07:25 | ERPHSYRPT ---
- History of Present Illness Time Seen by Provider: 05/27/25 07:00 Source: patient Patient Subjective Stated Complaint: c/o right sided back pain Triage Nursing Assessment: patient brought self to ED with c/o right sided back pain. pain started around 1999 yesterday. right side of back is swollen, no redness or bruising noted, denies trauma to the back. patient has two 0.5cm round papules on the right medial side of her back that itches. slightly hypertensive, gait steady, skin w/n/d, patient doesn't appear to be in any distress at this time. Physician History: This is a 75-year-old female with a history of shingles 3 times prior having the repeat of her same lesions in the same spot in her right side inner scapula that began 8 PM last night 11 hours ago. Patient states she had the exact same symptoms in the same spot when she was in [facility] recently. She states that she has had lesions in the same place before. The pain is focal and tender to lay on. There is no radiation of pain. Pain does not go anteriorly. Pain is very reproducible when she touches it. She has no anterior left-sided chest pain. No shortness of breath. No cough, fever or chills. Patient denies any cardiac history. Allergies/Adverse Reactions: amoxicillin trihydrate [From Augmentin] Allergy (Intermediate, Verified 05/27/25 06:31) Nausea and Vomiting ciprofloxacin [From Cipro] Allergy (Intermediate, Verified 05/27/25 06:31) Nausea and Vomiting ciprofloxacin HCl [From Cipro] Allergy (Intermediate, Verified 05/27/25 06:31) Nausea and Vomiting codeine Allergy (Intermediate, Verified 05/27/25 06:31) Nausea and Vomiting hydrocodone Allergy (Intermediate, Verified 05/27/25 06:31) Nausea and Vomiting Penicillins Allergy (Intermediate, Verified 05/27/25 06:31) Hives potassium clavulanate [From Augmentin] Allergy (Intermediate, Verified 05/27/25 06:31) Nausea and Vomiting ranitidine [From Zantac] Allergy (Intermediate, Verified 05/27/25 06:31) Nausea and Vomiting Sulfa (Sulfonamide Antibiotics) Allergy (Intermediate, Verified 05/27/25 06:31) Nausea and Vomiting sulfamethoxazole [From Septra] Allergy (Intermediate, Verified 05/27/25 06:31) Nausea and Vomiting tolterodine [From Detrol] Allergy (Intermediate, Verified 05/27/25 06:31) Nausea and Vomiting trimethoprim [From Septra] Allergy (Intermediate, Verified 05/27/25 06:31) Nausea and Vomiting warfarin sodium [From Coumadin] Allergy (Intermediate, Verified 05/27/25 06:31) n&v tramadol Allergy (Mild, Verified 05/27/25 06:31) Lightheadedness Home Medications: Levocetirizine Dihydrochloride [24Hr Allergy Relief] 5 mg PO DAILY 05/27/25 [History] Losartan Potassium [Cozaar] 25 mg PO DAILY 05/27/25 [History] Hx Tetanus, Diphtheria Vaccination/Date Given: No (unknown) Hx Influenza Vaccination/Date Given: No Hx Pneumococcal Vaccination/Date Given: Yes Travel Risk - International Travel Have you traveled outside of the country in past 3 weeks: No - Emerging Infectious Disease Are you exhibiting symptoms associated with any current EIDs: No - Review of Systems All Other Systems: Reviewed and Negative (As per HPI otherwise negative) - Past Medical History Pertinent Past Medical History: Yes Neurological History: Other ENT History: No Pertinent History Cardiac History: Hypertension Respiratory History: Asthma Endocrine Medical History: No Pertinent History Musculoskeletal History: Osteoarthritis GI Medical History: Diverticulosis, Other History: No Pertinent History Psycho-Social History: No Pertinent History Female Reproductive Disorders: No Pertinent History Other Medical History: SHE HAS NUMBNESS INTO L THUMB AT TIMES. B RADHA, L HIP BURSITITS, L SHOULDER CORTISONE SHOT and in both knees - Past Surgical History Past Surgical History: Yes Neuro Surgical History: No Pertinent History Cardiac: No Pertinent History Respiratory: No Pertinent History Gastrointestinal: Colon Resection Genitourinary: No Pertinent History Musculoskeletal: Joint Replacement Female Surgical History: Hysterectomy Other Surgical History: bilateral hip replacement 2008, 2011 - Social History Smoking Status: Current every day smoker How long have you smoked: 50yrs Exposure to second hand smoke: Yes Drug Use: none - Social Determinants of Health Will the patient participate in the screening: Yes Do you worry about a steady place to live?: No Do you have any problems with any of the following?: No known problems In the past 12 months,have you had to go without utilities?: No Transportation Issues: No Has anyone in your support network made you feel unsafe?: No Have you or anyone in your house had to go w/o enough food: No - Nursing Vital Signs Nursing Vital Signs: Initial Vital Signs Respiratory Rate 19 05/27/25 06:21 Pain Scale Pain Intensity [Right Back] 6 Pain Intensity 4 - Physical Exam SpO2: 99 Comments: 05/27/25 07:29 General: Well-nourished well-developed. No apparent distress. HEENT: Normocephalic atraumatic no obvious facial or neck deformity or injury. Neck: Supple. No deformity or mass noted. CV: RRR NL Perfusion. No edema Flank: Right interscapular region with 2 maculopapular lesions extremely tender to touch along the dermal line. Patient states is the same size as previous shingle rash. Resp: No Respiratory distress or adventitious breath sounds Abd: ND SNT MSK: No deformity or TTP Neuro: Alert and [place] x4. No gross focal neurologic changes Psych: No SI, HI or grave disability Ordered Tests: Active Orders 24 hr Category Date Time Status UA W/RFX UR CULTURE Stat Lab 05/27/25 06:20 Ordered - Departure Departure Disposition: Home Clinical Impression: Shingles rash Qualifiers: Herpes zoster complications: without complications Qualified Code(s): B02.9 - Zoster without complications Condition: Stable Critical Care Time: No Referrals: JERAMIE GRECO [Primary Care Provider, [facility]] - Follow up/PCP as directed Instructions: Shingles Additional Instructions: You have been evaluated for an emergency medical condition. At this time, given the current history and events presented, the examination conducted and any possible testing you may have had, you have been given a presumptive diagnosis based on the current information is obtained. Your discharge diagnosis is presumptive and not necessarily definitive. Medical conditions present in various stages very often without all the symptoms or findings described in medical literature. Other symptoms, concerns or condit ions may arise and your diagnoses may evolve or change and/or your condition could potentially worsen after the time of disposition or discharge. You have been given a presumptive diagnosis and your condition appears to be stable, but your medical issues can change or worsen. If there is worsening of your condition including difficulty breathing, swallowing, speaking, chest pain or pressure, intractable vomiting, worsening or changing mental status, numbness, tingling or weakness of your body or arms or legs, thoughts or plans of harming yourself or others, or any other concerns, call 911 and/or return immediately to the closest emergency department. It is important you follow-up with your doctor on the next business day. Call your doctor, or the referral provided if you do not have a doctor, when they open to schedule a follow-up appointment in the next 1 or latest 2 days. Please refer to the attached sheet. If you do not have primary care doctor, you can call the [facility] referral line at [phone]. Return immediately if your symptoms worsen or if you are unable to obtain further care. My team and I thank you for choosing the [facility] Emergency Department emergency healthcare needs. We wish you a speedy recovery. Very respectfully, Dr. Rosemary Cazares M.D. [employer] Board-certified Emergency Physician Prescriptions: Gabapentin 100 mg PO TID PRN #30 cap PRN Reason: Pain Valacyclovir HCl [valACYclovir] 1,000 mg PO TID 14 Days #42 tablet
[2025-05-27 08:04] VITALS: BP 142/67; PULSE 70
== END 2025-05-27 08:02 | disposition home or self-care (01) ==
LOC: ED 06:16
DX: B02.9 Zoster without complications (principal); I10 Essential (primary) hypertension; Z79.899 Other long term (current) drug therapy; Z72.0 Tobacco use